=== PATIENT | male | born 1970 | race Caucasian/White ===

== ENCOUNTER 2022-10-13 00:49 | Emergency (ER) | payer SELFPAY ==
[~2022-10-13] VITALS: Ht 182.9 cm; Wt 83.9 kg
[~2022-10-13 00:49] MED LIST: AZITHROMYCIN250 MG PO; GUAIFENESIN-CO118 ML PO; NAPROXEN500 MG PO; PROVENTIL HFA6.7 GM INH
[2022-10-13] MEDS ORDERED: METFORMIN HCL500 MG PO (02:53)
[2022-10-13] MEDS ORDERED: NEURONTIN400 MG PO (02:53)
[2022-10-13] MEDS ORDERED: VENTOLIN HFA18 GM INH (05:05)
[2022-10-13] MEDS ORDERED: METRONIDAZOLE500 MG PO (05:05)
[2022-10-13] MEDS ORDERED: CIPRO500 MG PO (05:05)
== END 2022-10-13 06:10 | disposition home or self-care (01) ==
LOC: ED 00:49 → EDBD 00:51 → ED 00:51
DX: K40.90 Unilateral inguinal hernia, without obstruction or gangrene, not specified as recurrent (principal); J20.9 Acute bronchitis, unspecified; K57.32 Diverticulitis of large intestine without perforation or abscess without bleeding; Z20.822 Contact with and (suspected) exposure to COVID-19; E11.9 Type 2 diabetes mellitus without complications; Z79.84 Long term (current) use of oral hypoglycemic drugs; Z79.899 Other long term (current) drug therapy
CPT/HCPCS: 36415; 71045; 74177; 80053; 81003; 85025; 87502; 94640; 96374; 99284-25; C9803; J1885; Q9967; U0003

== ENCOUNTER 2022-10-15 12:46 | Emergency (ER) | payer OTHER ==
[~2022-10-15] VITALS: Ht 182.9 cm; Wt 83.4 kg
[~2022-10-15 12:46] MED LIST changes: +CIPRO500 MG PO; +METFORMIN HCL500 MG PO; +METRONIDAZOLE500 MG PO; +NEURONTIN400 MG PO; +VENTOLIN HFA18 GM INH
[2022-10-15] MEDS ORDERED: METFORMIN HCL1000 MG PO ×2 (13:06→16:20)
[2022-10-15] MEDS ORDERED: GABAPENTIN800 MG PO (13:06)
[2022-10-15] MEDS ORDERED: FUROSEMIDE20 MG PO (16:20)
[2022-10-15] MEDS ORDERED: AMOX TR-K CLV1 EAC1 PO (16:20)
== END 2022-10-15 16:29 | disposition home or self-care (01) ==
LOC: ED 12:46
DX: J40 Bronchitis, not specified as acute or chronic (principal); J81.0 Acute pulmonary edema; K57.92 Diverticulitis of intestine, part unspecified, without perforation or abscess without bleeding; K21.9 Gastro-esophageal reflux disease without esophagitis; I10 Essential (primary) hypertension; E11.40 Type 2 diabetes mellitus with diabetic neuropathy, unspecified; F17.200 Nicotine dependence, unspecified, uncomplicated; Z79.899 Other long term (current) drug therapy; Z79.84 Long term (current) use of oral hypoglycemic drugs
CPT/HCPCS: 36415; 71046; 80053; 83880; 84484; 85025; 94640; 94664; 99284-25

== ENCOUNTER 2022-10-30 10:29 | Inpatient (IN) | payer OTHER ==
[~2022-10-30] VITALS: Ht 182.9 cm; Wt 80.1 kg
[~2022-10-30 10:29] MED LIST changes: +AMOX TR-K CLV1 EAC1 PO; +FUROSEMIDE20 MG PO; +GABAPENTIN800 MG PO; +METFORMIN HCL1000 MG PO
--- OUTSIDE RECORDS SUMMARY | 2022-10-30 10:38 | XMS ---
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 Fly has no Care Guidelines for this patient. [place] VISIT COUNT (12 MO.) 3 [facility] TOTAL 3 NOTE: Visits indicate total known visits. ED/C VISIT TRACKING (12 MO.) 10/30/2022 10:[address] [facility] [place] TYPE: Emergency COMPLAINT: - CHEST CONGESTION, COUGH, FEVER, SWOLLEN TESTICLES 10/15/2022 12:46 [facility] [place] TYPE: Emergency COMPLAINT: - COLD SYMPTOMS DIAGNOSES: - Bronchitis, not specified as acute or chronic - Gastro-esophageal reflux disease without esophagitis - Other senior living (current) drug therapy - Acute pulmonary edema - Essential (primary) hypertension - Type 2 diabetes mellitus with diabetic neuropathy, unspecified - salvage determiner (current) use of oral hypoglycemic drugs - Cough, unspecified - Nicotine dependence, unspecified, uncomplicated - Diverticulitis of intestine, part unspecified, without perforation or abscess without bleeding 10/13/2022 00:51 [facility] [place] TYPE: Emergency COMPLAINT: - LOWER ABD PAIN DIAGNOSES: - Other senior living (current) drug therapy - Acute bronchitis, unspecified - Diverticulitis of large intestine without perforation or abscess without bleeding - Unilateral inguinal hernia, without obstruction or gangrene, not specified as recurrent - Type 2 diabetes mellitus without complications - salvage determiner (current) use of oral hypoglycemic drugs - Unspecified abdominal pain - Contact with and (suspected) exposure to COVID-19 INPATIENT VISIT TRACKING (12 MO.) No inpatient visits to display in this time frame [email or web address]
--- NOTE | 2022-10-31 12:15 | NUR ---
PT. ARRIVED FROM ER VIA STRETCHER FROM ER. REPORT RECEIVED FROM CHARGE AND 2 RN SKIN ASSESSMENT COMPLETED WITH CHARGE. PT. IS ALERT AND ORIENTED TO ALL BUT DATE. SCROTUM IS PAINFUL, RED AND EDEMETOUS. INTAKE COMPLETED AND MEDS ADMINISTERED. DISCUSSED SAFETY, POC, DX AND MEDS. LEFT RESTING WITH CALL LIGHT IN REACH.
--- NOTE | 2022-10-31 13:43 | NUR ---
PT AMBULATED TO THE RESTROOM TO HAVE A BOWEL MOVEMENT. EDUCATED PT TO PULL CALL LIGHT WHEN DONE. PT STATES UNDERSTANDING.
--- NOTE | 2022-10-31 14:13 | NUR ---
SITTING ON BED.DISCUSSED PLAN OF CARE. PATIENT PLANS TO GO HOME WTH HIS .STATES HE LIVES DIFFERENT PLACES DEPENDING ON WHERE HE DECIDES TO SLEEP FOR THE NIGHT.PATIENT GIVEN A PAIGE CARD TO HELP WITH SUBSTANCE ABUSE PROBLEMS. PCP LIST ALSO GIVEN TO PATIENT TO HELP PATIENT CHOOSE A PCP.
--- NOTE | 2022-10-31 16:20 | NUR ---
MED REC COMPLETE
--- NOTE | 2022-10-31 18:00 | NUR ---
ROUNDING ON PT. IN THE ROOM. DISCUSSED EFFECTS OF METH USE ON LIVER AND HEART. PT. AND EXPRESSED INTEREST IN C.O.P.E.S. ORDERED DINNER BOX. LEFT RESTING WITH CALL LIGHT IN REACH.
--- NOTE | 2022-10-31 20:10 | NUR ---
report from miki villar, pt and s/o in room, oriented to this nurse - white board updated - water to pt and guest - she is staying the night, offered pillow/blanket and bathroom. pt denies needs - call light in reach - oriented to plan of care for night meds/vitals.
--- NOTE | 2022-10-31 21:30 | NUR ---
PT AND S/O IN ROOM, ASSESSMENT, VITALS, I/O COMPLETE. PT BLE ELEVATED ON PILLOWS 3+ EDEMA NOTED - NEW TO PT, SCROTAL CELLULITIS OF UNKNOWN SOURCE NEW, RED, SWOLLEN- PT NOTED DR SAID HE HAD INGUINAL HERNIA WELL. PT AND GUEST ADMIT TO CHRONIC METH USE AND HOMELESSNESS. WELCOME ANY EDUCATION AND HELP. THEY HAVE CHILDREN AND GRANDCHILDREN IN TOWN. ESTABLISHED WITH PFM - BUT MISSED APPOINTMENT LAST WEEK DUE TO RESOURCES AND PRIORITY OF ADDICTION. PT AT THIS TIME IS VERY ALERT AND TALKATIVE.
--- NOTE | 2022-10-31 23:15 | NUR ---
rn in to answer pt call light. pt c/o left inguinal pain with coughing - exam shows no buldge or disfiguration showing a visible hernia, no discoloration noted. pt states he splints when he coughs - recent po pain med given - rn educated pt will bring in again when it is next due. pt agrees to keep up on the po med. anxious about all the medical things he has going on he says. rn refilled water and offered s/o refill also. pt agrees with plan and lights down so they can rest. will have iv abx at 1 am. next. pt will call with needs. light in reach.
--- NOTE | 2022-11-01 01:15 | NUR ---
rn in room to start iv vanco, pt awakens - mumbling and talking about nonsense. tells me he haves bad dreams - rn explaining iv abx via pump and fluses left arm site. pt is anxious and moving around in bed - continues to be mumbling and nonsense talk. call light in reach - asked him to call when iv pump beeps - he agrees.
--- NOTE | 2022-11-01 02:30 | NUR ---
PT CALLED FOR URINAL TO BE EMPTIED, PT REQUESTS DIET SODA, BROTH, NO FURTHER NEEDS
--- NOTE | 2022-11-01 02:31 | NUR ---
rn in with scrubbing machine operator for vitals/i/o - sl iv after iv abx was complete. pt denies needs other than refill of fluids, call light in reach.
--- NOTE | 2022-11-01 06:18 | NUR ---
ROUNDING ON PT, RN IN TO GIVE EDUCATION PACKET. PT STANDING IN ROOM AT BEDSIDE, DENIES NEEDS, THANKFUL FOR EDUCATION INFO - CALL LIGHT IN REACH.
--- NOTE | 2022-11-01 07:46 | NUR ---
recieved shift report. pt resting in bed, awake. at bedside. call light within reach.
--- NOTE | 2022-11-01 10:03 | NUR ---
MORNING ASSESSMENT COMPLETE. PT RESTING IN BED, AWAKE. SCROTAL AREA REMAINS SWOLLEN. BLE 3+ EDEMA. PT STATES PAIN IN RIGHT FOOT, 4/10, ALSO STATES IS CHRONIC, TOLERABLE. PT AMBULATES TO BATHROOM INDEPENDENTLY. DENIES FURTHER NEEDS. AT BEDSIDE. CALL LIGHT WITHIN REACH.
--- NOTE | 2022-11-01 10:17 | NUR ---
NOTIFIED DR DA SILVA REGARDING CULTURE RESULTS. NO NEW ORDERS AT THIS TIME.
--- NOTE | 2022-11-01 10:58 | NUR ---
PATIENT IN BED AFTER MEAL. SPOUSE IN ROOM. VITALS AND I/O'S COMPLETED. PATIENT HAS NO OTHER NEEDS AT THIS TIME. CALL LIGHT WITHIN REACH.
--- NOTE | 2022-11-01 13:29 | NUR ---
PT RESTING IN BED, AWAKE. PAIN IN GROIN 5/10, TOLERABLE. CALL LIGHT WITHIN REACH. AT BEDSIDE. DENIES FURTHER NEEDS.
--- NOTE | 2022-11-01 15:35 | NUR ---
AFTERNOON ASSESSMENT COMPLETE. NO NEW CHANGES FROM MORNING ASSESSMENT. RATES PAIN 7/10, REQUESTING PRN MEDICATION. CALL LIGHT WITHIN REACH.
--- NOTE | 2022-11-01 17:59 | NUR ---
NOTIFED OF PT MAG LEVEL. NO NEW ORDERS AT THIS TIME.
--- NOTE | 2022-11-01 19:00 | NUR ---
report from cj rn, pt bs high today requireing insulin, tylenol for scrotal pain and leg pain, edema ble improving, replacing mg and kcl. call light in reach.
--- NOTE | 2022-11-01 19:02 | EKG ---
[facility] [address] [facility] [place] [address] Signed Normal sinus rhythm Right atrial enlargement T wave abnormality, consider anterolateral ischemia Prolonged QT Abnormal ECG No previous ECGs available Confirmed by MARY CARMEN DA SILVA MD ([id number]) on 11/01/2022 7:01:48 PM Electronically Signed By: MARY CARMEN DA SILVA MD 11/01/221901 PATIENT NAME: KAYKAY LAWSON Electrocardiogram DATE OF : 72 PHYSICIAN: MARY CARMEN DA SILVA MD REPORT #: [id number] REPORT IS CONFIDENTIAL AND NOT TO BE RELEASED WITHOUT AUTHORIZATION
--- NOTE | 2022-11-01 22:02 | NUR ---
VS AND I&O COMPLETED. SNACKS PROVIDED. NO OTHER NEEDS AT THIS TIME. CALL LIGHT IN REACH.
--- NOTE | 2022-11-01 22:55 | NUR ---
IN ROOM FOR IV MG VIA PUMP. PT AWAKENS SLIGHTLY, MOANS AND GROANS - MUMBLES. S /O SLEEPING IN , SNORES, PT HAS LEGS WITH BLE EDEMA ELEVATED ON PILLOWS IN BED, CALL LIGHT IN REACH.
--- NOTE | 2022-11-01 23:20 | NUR ---
iv distal occlusion - pt amb in room to bathroom. requesting a salad - encouraged to call tomorrow when kitchen is open.
--- NOTE | 2022-11-01 23:43 | NUR ---
IN ROOM TO SL 2ND IV WITH ABX. SITE WNL. PT CONTINUES TO MOAN AND KORILE BUT ANSWERS QUESTIONS APPROPRIATELY.
--- NOTE | 2022-11-02 01:45 | NUR ---
pt awake sitting at side of bed, Iv sl - mg/abx finished. pt asks for food/pudding. [place]. glucerna and sf vanilla pudding provided. pt denies other needs. he is cont. to moan and make noises and movements - seems to be related to his recent meth use.
--- NOTE | 2022-11-02 04:29 | NUR ---
IN TO PT ROOM, HIS CALLED - PT IS STANDING IN ROOM WITH GOWN OFF IN UNDERPANTS CONFUSED, HALLUCINATING. HE GETS BACK IN BED AND COVERS, ADMITS TO FEELING LIKE HE IS WITHDRAWING FROM METH - BS PRN 189 WNL. PT SAYS HE FEELS LIKE HIS SKIN IS CRAWLING, SEES SHADOWS OF THINGS MOVING, ADMITS TO HALLUCINATIONS AND HEARING SOUNDS, FEELS LIKE HE IS IN THE WRONG PLACE BUT HE KNOWS WHERE HE IS. ASKS FOR SOME FENTANYL - LET HIM KNOW THAT i CAN NOT GIVE HIM MORE THEN HIS TYLENOL FOR PAIN. HE SAYS HE CAN NOT SETTLE DOWN AND SLEEP - TALKE WITH HIM AND - THEY ADMIT TO USING METH BEFORE HOSPITAL AND THEY USUALLY DON'T WITHDRAW THEY KENNY THE NEXT ONE, AND USE DRUGS AGAIN BEFORE THIS HAPPENS, BUT THAT THIS IS WHAT IS GOING ON. KYLEWA CHARTED. PT TRYING TO REST IN BED AND AGREES WITH ASSESSMENT OF WITHDRAW SYMPTOMS. CALL LIGHT IN REACH AT BEDSIDE.
--- NOTE | 2022-11-02 05:57 | NUR ---
VITALS, I/O COMPLETE - IV ABX FUSING. PT RESTLESS, MOANING, GROANING, REPORTS HE IS BURNING UP, TEMP WNL. PT CONSTANTLY MOVING. CALL LIGHT IN REACH
--- NOTE | 2022-11-02 07:30 | NUR ---
Patient in bed this am, spouse in room. Pt is INDP in room. acu check completed. Patient has no other needs at this time. Call light within reach.
--- NOTE | 2022-11-02 07:58 | NUR ---
Pt laying in bed, awake. states was not able to sleep at night, and doesnt know why. at bedside. denies further needs. call light within reach.
--- NOTE | 2022-11-02 08:50 | NUR ---
MORNING ASSESSMENT COMPLETE. ENTERING ROOM PT SITTING ON THE SIDE OF BED, PT REMOVED GOWN AND DOESNT KNOW WHY. STATES HIS SKIN IS TINGLING, AND CLAMMY. BLE +2 EDEMA. GROIN REMAINS SWOLLEN. PT COMPLAINS OF 9/10 PAIN IN THE RIGHT HAND AND FOOT. REQUESTED PRN PAIN MEDICATION. COURSE IN LEFT LOWER LOBE. CALL LIGHT WITHIN REACH. AT BEDSIDE.
--- NOTE | 2022-11-02 10:37 | NUR ---
PATIENT SITTING UP ON SIDE OF BED. SPOUSE "HE WAS WHEEZING AND HE DOESNT LOOK RIGHT". PATIENT WAS SITTING AND SWAYING HIS BODY BACK AND FORTH. PT WAS ALSO MUMBLING INCOHERENT SENTENCES. NURSE CJ NOTIFIED. VITALS AND I/O'S COMPLETED AND WERE IN PARAMETERS AND WERE CONSISTANT FOR PATIENT. PT HAS NO OTHER NEEDS AT THIS TIME. CALL LIGHT WITHIN REACH.
--- NOTE | 2022-11-02 11:47 | NUR ---
IN ROOM TO DO BS. PT SITTING ON COUCH AND PT FACING HIM. UPON ENTERING THE BACK WAS TURNED TOWARD ME AND BOTH PT AND LOOKED AT ME VERY FAST. WHEN ASKING WHAT THEY WERE UP TO PT AND STATED "OH NOTHING:. PT STARTED MUBMLING AND WAS VERY FIDGETY AND WAS ROCKING BACK AND FORTH. PT TO BED. BS TAKEN. NO FURTHER NEEDS. CALL LIGHT WITHIN REACH
--- NOTE | 2022-11-02 14:04 | NUR ---
PT REQ TOWELS. TOWELS BROUGHT TO PT. VITALS AND IS AND OS COMPLETE. ES NOTIFIED TO CLEAN BATHROOM. ICE WATER GIVEN TO PT. NO FURTHER NEEDS. CALL LIGHT WITHIN REACH
--- NOTE | 2022-11-02 14:38 | NUR ---
AFTERNOON ASSESSMENT COMPLETE. NO NEW CHANGES SINCE MORNING ASSESSMENT. DISCUSSED WITH PATIENT CHANGE OF MEDICATIONS. ALL QUESTIONS ANSWERED. PT REQUESTED PRN ANXIETY MEDICATION HOPING TO HELP GET REST. PRN HYDROXYZINE ADMINISTERED (PER EMAR). 2+ EDEMA BLE, FEET. DENIES PAIN, AND FURTHER NEEDS. CALL LIGHT WITHIN REACH.
--- NOTE | 2022-11-02 16:00 | NUR ---
PT LAYING IN BED, AWAKE. PT STATES PRN ANXIETY MEDICATION HAS WORKED. DENIES ANY FURTHER NEEDS AT THIS TIME. CALL LIGHT WITHIN REACH.
--- NOTE | 2022-11-02 19:00 | NUR ---
REPORT FROM JUNIE RN, PT SL IV, ANXIETY IMPROVED WITH PO MEDS TODAY - ASSSISTED S/O TO MAKE POPCORN, PT INCREASED APPETITIE. CALL LIGHT IN REACH.
--- NOTE | 2022-11-02 21:30 | NUR ---
pt and s/o are arguing in room, pt is standing up with his steet clothing on ready to leave - requesting to go AMA, says to s/o they are not leaving together they are parting ways right now. pt wants to leave, pleasant and honest- feels better he says and he needs to go. he agrees to let rn take out iv's intact x2 and he agreed to take po abx see emar. they are homeless so they have a lot of things packing up from room, advised that I would call dr. romero - and offered for pt to stay, he was polite and said no thank you tell him I just need to get out of here. they asked for ride to near [employer] [facility] [employer]. dr romero charge and job site supervisor notified - glynn from security helped to escort pt and s/o other out with all of there belongings. and care ride was called. pt was alert and oriented, steady on feet. dc out at 2157 pm with security.
[2022-11-03] MEDS ORDERED: DOXYCYCLINE HY100 MG PO (09:13)
[2022-11-03] MEDS ORDERED: CEFPODOXIME PR200 MG PO (09:13)
[2022-11-03] MEDS ORDERED: TORSEMIDE20 MG PO (09:14)
[2022-11-03] MEDS ORDERED: LOSARTAN POTASS25 MG PO (09:15)
[2022-11-03] MEDS ORDERED: POTASSIUM CHLO20 ME1 PO (09:15)
[2022-11-03] MEDS ORDERED: CARVEDILOL3.125 MG PO (09:15)
[2022-11-03] MEDS ORDERED: STEGLATRO5 MG PO (09:17)
--- NOTE | 2022-11-03 09:22 | NUR ---
CALLED PATIENT TO LET HIM KNOW THAT DR. DA SILVA SENT PRESCRIPTIONS TO BE VALENTE. 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
== END 2022-11-02 21:57 | disposition left against medical advice (07) | DRG 917 ==
LOC: ED 10:29 → MS 10-31 11:07
PROVIDERS: ADMIT Internal Medicine; ATTEND Internal Medicine
DX: T43.651A Poisoning by methamphetamines accidental (unintentional), initial encounter (principal); I50.23 Acute on chronic systolic (congestive) heart failure; K72.00 Acute and subacute hepatic failure without coma; J13 Pneumonia due to Streptococcus pneumoniae; F15.23 Other stimulant dependence with withdrawal; Z20.822 Contact with and (suspected) exposure to COVID-19; N49.2 Inflammatory disorders of scrotum; I11.0 Hypertensive heart disease with heart failure; B19.20 Unspecified viral hepatitis C 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 coma; K21.9 Gastro-esophageal reflux disease without esophagitis; F17.210 Nicotine dependence, cigarettes, uncomplicated; E87.6 Hypokalemia; E11.40 Type 2 diabetes mellitus with diabetic neuropathy, unspecified; Z90.49 Acquired absence of other specified parts of digestive tract; Z98.890 Other specified postprocedural states; Z79.84 Long term (current) use of oral hypoglycemic drugs; Z79.899 Other long term (current) drug therapy; X58.XXXA Exposure to other specified factors, initial encounter
CPT/HCPCS: 36415; 71045; 74177; 76705; 76870; 80048; 80053; 80074; 80202; 81001; 82140; 83036; 83605; 83735; 83880; 84484; 85025; 85610; 87040; 87077; 87186; 87502; 87517; 87522; 93005; 93010; 93306; A9270; G0480; J0696; J1120; J1815; J1940; J2270; J2543; J3370; J3430; J3475; J7060; Q0177; Q9967; U0003

== ENCOUNTER 2023-01-04 05:40 | Emergency (ER) | payer OTHER ==
[~2023-01-04] VITALS: Ht 182.9 cm; Wt 82.0 kg
[~2023-01-04 05:40] MED LIST changes: +CARVEDILOL3.125 MG PO; +CEFPODOXIME PR200 MG PO; +DOXYCYCLINE HY100 MG PO; +LOSARTAN POTASS25 MG PO; +POTASSIUM CHLO20 ME1 PO; +STEGLATRO5 MG PO; +TORSEMIDE20 MG PO
--- OUTSIDE RECORDS SUMMARY | 2023-01-04 05:44 | XMS ---
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 [place] VISIT COUNT (12 MO.) 2 [facility] [address] TOTAL 9 NOTE: Visits indicate total known visits. ED/UCC VISIT TRACKING (12 MO.) 01/04/2023 05:40 [facility] TYPE: Emergency COMPLAINT: - CP 12[facility]19[facility]22 13:[facility] DIAGNOSES: - chest pain and sob/ccoughing up blood - Heart failure, unspecified - Other pulmonary embolism without acute cor pulmonale - Chest Pain - Non-ST elevation (NSTEMI) myocardial infarction - Pneumonia, unspecified organism - Cough 11/14/2022 11:35 [facility] DIAGNOSES: - Shortness of Breath - Difficulty Breathing - Difficulty Breathing; Poss Hernia - Unspecified systolic (congestive) heart failure 11/13/2022 12:34 [facility] [place] TYPE: Emergency COMPLAINT: - CHEST PAIN DIAGNOSES: - skilled nursing (current) use of oral hypoglycemic drugs - Other terminologist (current) drug therapy - Chest pain, unspecified - Hepatic failure, unspecified without coma - Weakness - Nicotine dependence, unspecified, uncomplicated - Essential (primary) hypertension - Gastro-esophageal reflux disease without esophagitis - Type 2 diabetes mellitus with diabetic neuropathy, unspecified 10/30/2022 10:31 [facility] [place] TYPE: Emergency COMPLAINT: - CHEST CONGESTION, COUGH, FEVER, SWOLLEN TESTICLES 10/15/2022 12:46 [facility] [place] TYPE: Emergency COMPLAINT: - COLD SYMPTOMS DIAGNOSES: - Type 2 diabetes mellitus with diabetic neuropathy, unspecified - skilled nursing (current) use of oral hypoglycemic drugs - Cough, unspecified - Nicotine dependence, unspecified, uncomplicated - Diverticulitis of intestine, part unspecified, without perforation or abscess without bleeding - Bronchitis, not specified as acute or chronic - Gastro-esophageal reflux disease without esophagitis - Other terminologist (current) drug therapy - Acute pulmonary edema - Essential (primary) hypertension 10/13/2022 00:51 [facility] [place] TYPE: Emergency COMPLAINT: - LOWER ABD PAIN DIAGNOSES: - Type 2 diabetes mellitus without complications - terminal makeup operator (current) use of oral hypoglycemic drugs - Unspecified abdominal pain - Contact with and (suspected) exposure to COVID-19 - Other intermediate (current) drug therapy - Acute bronchitis, unspecified - Diverticulitis of large intestine without perforation or abscess without bleeding - Unilateral inguinal hernia, without obstruction or gangrene, not specified as recurrent 08/06/2022 13:39 [employer] [facility] TYPE: Emergency DIAGNOSES: - Lesion of radial nerve, left upper limb - Encounter for issue of repeat prescription - Type 2 diabetes mellitus without complications 07/28/2022 13:23 [employer] [facility] TYPE: Emergency DIAGNOSES: - Acute kidney failure, unspecified - Hyperlipidemia, unspecified - Cocaine abuse, uncomplicated - Dehydration - Other stimulant abuse, uncomplicated - Procedure and treatment not carried out because of patient's decision for unspecified reasons - Type 2 diabetes mellitus without complications - Adverse effect of other antiepileptic and sedative-hypnotic drugs, initial encounter INPATIENT VISIT TRACKING (12 MO.) 12/19/2022 13:29 [facility] TYPE: Intensive Care DIAGNOSES: - Non-ST elevation (NSTEMI) myocardial infarction - Other pulmonary embolism without acute cor pulmonale - Pneumonia, unspecified organism - Unspecified systolic (congestive) heart failure - Other stimulant abuse, uncomplicated - Heart failure, unspecified - Bacteremia - Hemoptysis - Type 2 diabetes mellitus with hyperglycemia - Acute on chronic systolic (congestive) heart failure 10/31/2022 11:07 [facility] TYPE: Medical Surgical COMPLAINT: - HEPITITIS,SCROTAL CELLULITIS,HEART FAIL,L LUNG PN DIAGNOSES: - Hypokalemia - Unspecified viral hepatitis C 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 coma - Unspecified viral hepatitis C 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 coma - Gastro-esophageal reflux disease without esophagitis - Poisoning by methamphetamines accidental (unintentional), initial encounter - Acute on chronic systolic (congestive) heart failure - Other stimulant dependence with withdrawal - Other specified postprocedural states - Hypertensive heart disease with heart failure - Contact with and (suspected) exposure to COVID-19 - Type 2 diabetes mellitus with diabetic neuropathy, unspecified - Nicotine dependence, cigarettes, uncomplicated - Acute and subacute hepatic failure without coma - skilled nursing (current) use of oral hypoglycemic drugs - Inflammatory disorders of scrotum - Hypokalemia - Pneumonia due to Streptococcus pneumoniae - Acquired absence of other specified parts of digestive tract - terminal makeup operator (current) use of oral hypoglycemic drugs - Other stimulant dependence with withdrawal - Other intermediate (current) drug therapy - Other specified postprocedural states - Poisoning by methamphetamines accidental (unintentional), initial encounter - Hypertensive heart disease with heart failure - Acute on chronic systolic (congestive) heart failure - Pneumonia due to Streptococcus pneumoniae - Nicotine dependence, cigarettes, uncomplicated - Other terminologist (current) drug therapy - Contact with and (suspected) exposure to COVID-19 - Type 2 diabetes mellitus with diabetic neuropathy, unspecified - Inflammatory disorders of scrotum - Acquired absence of other specified parts of digestive tract - Exposure to other specified factors, initial encounter - Exposure to other specified factors, initial encounter - Gastro-esophageal reflux disease without esophagitis [email or web address]
--- NOTE | 2023-01-04 11:33 | NUR ---
I WAS CALLED IN TO ER. MS WAS CODING. PROVIDED SPIRITUAL CARE TO THROUGHOUT ER STAY. PT WAS LIFELIGHTED. CLOTHING AND WALLET TRANSPORTED WITH PT AT 'S REQUEST.
--- NOTE | 2023-01-04 22:06 | EKG ---
[facility] [address] [facility] [place] [address] Signed Sinus tachycardia with frequent premature ventricular complexes ST \T\ T wave abnormality, consider anterolateral ischemia Abnormal ECG When compared with ECG of 13-NOV-2022 12:36, ST no longer depressed in Anterior leads T wave inversion less evident in Anterior leads Inverted T waves have replaced nonspecific T wave abnormality in Lateral leads Confirmed by Dada Ayala MD () on 01/04/2023 10:06:29 PM Electronically Signed By: DADA AYALA MD 01/04/232205 PATIENT NAME: KAYKAY LAWSON Electrocardiogram DATE OF : 72 PHYSICIAN: DADA AYALA MD REPORT #: [id number] REPORT IS CONFIDENTIAL AND NOT TO BE RELEASED WITHOUT AUTHORIZATION
--- NOTE | 2023-01-04 22:08 | EKG ---
[facility] [address] [facility] [place], [place] [address] Signed Sinus tachycardia Left atrial enlargement Septal infarct , age undetermined ST \T\ T wave abnormality, consider anterior ischemia Abnormal ECG No previous ECGs available Confirmed by Dada Ayala MD () on 01/04/2023 10:07:53 PM Electronically Signed By: DADA AYALA MD 01/04/232207 PATIENT NAME: KAYKAY LAWSON Electrocardiogram DATE OF : 72 PHYSICIAN: DADA AYALA MD REPORT #: [id number] REPORT IS CONFIDENTIAL AND NOT TO BE RELEASED WITHOUT AUTHORIZATION
== END 2023-01-04 11:10 | disposition short-term general hospital (02) ==
LOC: ED 05:40
DX: I11.0 Hypertensive heart disease with heart failure (principal); I50.9 Heart failure, unspecified; F15.129 Other stimulant abuse with intoxication, unspecified; J18.9 Pneumonia, unspecified organism; I46.9 Cardiac arrest, cause unspecified; Z20.822 Contact with and (suspected) exposure to COVID-19; B19.20 Unspecified viral hepatitis C 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 coma; E11.40 Type 2 diabetes mellitus with diabetic neuropathy, unspecified; K21.9 Gastro-esophageal reflux disease without esophagitis; F17.200 Nicotine dependence, unspecified, uncomplicated; Z79.899 Other long term (current) drug therapy; Z79.85 Long-term (current) use of injectable non-insulin antidiabetic drugs
CPT/HCPCS: 31500; 36415; 36600; 51702; 71045; 80053; 81001; 82803; 83605; 83690; 83880; 84484; 85025; 87088; 87502; 93005; 93010; 94002; 99291; 99292; C9803; J0330; J0456; J0696; J1940; J2060; J2405; J7040; J7050; J7060; J7121; U0003

== ENCOUNTER 2023-03-18 04:52 | Emergency (ER) | payer OTHER ==
[~2023-03-18] VITALS: Ht 182.9 cm; Wt 72.9 kg
[~2023-03-18 04:52] MED LIST changes: +ABILIFY5 MG PO; +BUPRENORPHIN-N1 EACH SL; +BUPRENORPHINE-1 EACH SL; +ELIQUIS5 MG PO
--- OUTSIDE RECORDS SUMMARY | 2023-03-18 04:55 | XMS ---
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 E.Colt. VISIT COUNT (12 MO.) 2 [facility] 1 [facility] 2 Located Within [facility] 7 VANNA Ennis Meme TOTAL 12 NOTE: Visits indicate total known visits. ED/UCC VISIT TRACKING (12 MO.) 03/18/2023 04:53 [facility] [place] TYPE: Emergency COMPLAINT: - RT HIP PAIN 03/10/2023 07:06 [facility] [place] TYPE: Emergency COMPLAINT: - BODY ACHES DIAGNOSES: - Contact with and (suspected) exposure to COVID-19 - Encephalopathy, unspecified - Heart failure, unspecified - Homelessness unspecified - Hypertensive heart disease with heart failure - Inflammatory liver disease, unspecified - terminal press operator (current) use of anticoagulants - terminal press operator (current) use of oral hypoglycemic drugs - Nicotine dependence, unspecified, uncomplicated - Other intermediate (current) drug therapy - Other psychoactive substance abuse, uncomplicated - Type 2 diabetes mellitus without complications - Unspecified abdominal pain 01/13/2023 14:59 [facility] TYPE: Emergency DIAGNOSES: - Acute on chronic systolic (congestive) heart failure - Intracardiac thrombosis, not elsewhere classified - Other pulmonary embolism without acute cor pulmonale - Shortness of breath - Medical Problem (Minor) - Shortness of Breath 01/04/2023 05:40 [facility]NA Sosa TYPE: Emergency COMPLAINT: - CP DIAGNOSES: - Cardiac arrest, cause unspecified - Chest pain, unspecified - Contact with and (suspected) exposure to COVID- - Gastro-esophageal reflux disease without esophagitis - Heart failure, unspecified - Hypertensive heart disease with heart failure - Long-term (current) use of injectable non-insulin antidiabetic drugs - Nicotine dependence, unspecified, uncomplicated - Other intermediate (current) drug therapy - Other stimulant abuse with intoxication, unspecified - Pneumonia, unspecified organism - Type 2 diabetes mellitus with diabetic neuropathy, unspecified - Unspecified viral hepatitis C 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 coma [facility]19[facility]22 13:[facility] DIAGNOSES: - Heart failure, unspecified - Non-ST elevation (NSTEMI) myocardial infarction - Other pulmonary embolism without acute cor pulmonale - Pneumonia, unspecified organism - Chest Pain - chest pain and sob/ccoughing up blood - Cough 11/14/2022 11:35 [facility] TYPE: Emergency DIAGNOSES: - Unspecified systolic (congestive) heart failure - Difficulty Breathing - Difficulty Breathing; Poss Hernia - Shortness of Breath 11/13/2022 12:34 [facility]ANNA Sosa TYPE: Emergency COMPLAINT: - CHEST PAIN DIAGNOSES: - Chest pain, unspecified - Essential (primary) hypertension - Gastro-esophageal reflux disease without esophagitis - Hepatic failure, unspecified without coma - terminal press operator (current) use of oral hypoglycemic drugs - Nicotine dependence, unspecified, uncomplicated - Other terminal press operator (current) drug therapy - Type 2 diabetes mellitus with diabetic neuropathy, unspecified - Weakness 10/30/2022 10:31 [facility] [place] TYPE: Emergency COMPLAINT: - CHEST CONGESTION, COUGH, FEVER, SWOLLEN TESTICLES 10/15/2022 12:46 [facility] [place] TYPE: Emergency COMPLAINT: - COLD SYMPTOMS DIAGNOSES: - Acute pulmonary edema - Bronchitis, not specified as acute or chronic - Cough, unspecified - Diverticulitis of intestine, part unspecified, without perforation or abscess without bleeding - Essential (primary) hypertension - Gastro-esophageal reflux disease without esophagitis - alf (current) use of oral hypoglycemic drugs - Nicotine dependence, unspecified, uncomplicated - Other terminal press operator (current) drug therapy - Type 2 diabetes mellitus with diabetic neuropathy, unspecified 10/13/2022 00:51 [facility] [place] TYPE: Emergency COMPLAINT: - LOWER ABD PAIN DIAGNOSES: - Acute bronchitis, unspecified - Contact with and (suspected) exposure to COVID-19 - Diverticulitis of large intestine without perforation or abscess without bleeding - alf (current) use of oral hypoglycemic drugs - Other terminal press operator (current) drug therapy - Type 2 diabetes mellitus without complications - Unilateral inguinal hernia, without obstruction or gangrene, not specified as recurrent - Unspecified abdominal pain 08/06/2022 13:39 [facility] TYPE: Emergency DIAGNOSES: - Encounter for issue of repeat prescription - Lesion of radial nerve, left upper limb - Type 2 diabetes mellitus without complications 07/28/2022 13:23 [facility] TYPE: Emergency DIAGNOSES: - Acute kidney failure, unspecified - Adverse effect of other antiepileptic and sedative-hypnotic drugs, initial encounter - Cocaine abuse, uncomplicated - Dehydration - Hyperlipidemia, unspecified - Other stimulant abuse, uncomplicated - Procedure and treatment not carried out because of patient's decision for unspecified reasons - Type 2 diabetes mellitus without complications INPATIENT VISIT TRACKING (12 MO.) 03/10/2023 19:52 [facility] TYPE: [facility] DIAGNOSES: [id number]. Acute and subacute hepatic failure without coma 28215. acute hepatitis with encephalopathy, request for liver transplant eval [id number]. Acute and subacute hepatic failure without coma 45347. Housing instability, housed unspecified 10267. terminal press operator (current) use of insulin 40617. Type 2 diabetes mellitus without complications 01/04/2023 11:36 [facility] TYPE: Internal Medicine DIAGNOSES: - Acute on chronic systolic (congestive) heart failure - Cardiac arrest, cause unspecified - Encounter for palliative care - Intracardiac thrombosis, not elsewhere classified - Other malaise - Other specified counseling - Other stimulant abuse, uncomplicated - PEA cardiac arrest [facility]19[facility]22 [facility] DIAGNOSES: - Acute on chronic systolic (congestive) heart failure - Bacteremia - Heart failure, unspecified - Hemoptysis - Non-ST elevation (NSTEMI) myocardial infarction - Other pulmonary embolism without acute cor pulmonale - Other stimulant abuse, uncomplicated - Pneumonia, unspecified organism - Type 2 diabetes mellitus with hyperglycemia - Unspecified systolic (congestive) heart failure 10/31/2022 11:07 [facility] [place] TYPE: Medical Surgical COMPLAINT: - HEPITITIS,SCROTAL CELLULITIS,HEART FAIL,L LUNG PN DIAGNOSES: - Acquired absence of other specified parts of digestive tract - Acquired absence of other specified parts of digestive tract - Acute and subacute hepatic failure without coma - Acute on chronic systolic (congestive) heart failure - Acute on chronic systolic (congestive) heart failure - Contact with and (suspected) exposure to COVID-19 - Contact with and (suspected) exposure to COVID-19 - Exposure to other specified factors, initial encounter - Exposure to other specified factors, initial encounter - Gastro-esophageal reflux disease without esophagitis - Gastro-esophageal reflux disease without esophagitis - Hypertensive heart disease with heart failure - Hypertensive heart disease with heart failure - Hypokalemia - Hypokalemia - Inflammatory disorders of scrotum - Inflammatory disorders of scrotum - terminal press operator (current) use of oral hypoglycemic drugs - terminal press operator (current) use of oral hypoglycemic drugs - Nicotine dependence, cigarettes, uncomplicated - Nicotine dependence, cigarettes, uncomplicated - Other intermediate (current) drug therapy - Other intermediate (current) drug therapy - Other specified postprocedural states - Other specified postprocedural states - Other stimulant dependence with withdrawal - Other stimulant dependence with withdrawal - Pneumonia due to Streptococcus pneumoniae - Pneumonia due to Streptococcus pneumoniae - Poisoning by methamphetamines accidental (unintentional), initial encounter - Poisoning by methamphetamines accidental (unintentional), initial encounter - Type 2 diabetes mellitus with diabetic neuropathy, unspecified - Type 2 diabetes mellitus with diabetic neuropathy, unspecified - Unspecified viral hepatitis C 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 coma - Unspecified viral hepatitis C 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 coma [email or web address]
[2023-03-18 05:42] VITALS: BP 131/84
== END 2023-03-18 05:43 | disposition home or self-care (01) ==
LOC: ED 04:52
DX: M25.551 Pain in right hip (principal); G89.29 Other chronic pain; E46 Unspecified protein-calorie malnutrition; Z59.00 Homelessness unspecified; E11.40 Type 2 diabetes mellitus with diabetic neuropathy, unspecified; I11.0 Hypertensive heart disease with heart failure; I50.9 Heart failure, unspecified; F17.200 Nicotine dependence, unspecified, uncomplicated; B19.20 Unspecified viral hepatitis C 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 coma; F10.10 Alcohol abuse, uncomplicated; F15.10 Other stimulant abuse, uncomplicated; Z79.899 Other long term (current) drug therapy; Z79.84 Long term (current) use of oral hypoglycemic drugs; Z79.01 Long term (current) use of anticoagulants
CPT/HCPCS: 99283

== ENCOUNTER 2023-03-22 08:16 | Emergency (ER) | payer OTHER ==
[~2023-03-22] VITALS: Ht 182.9 cm; Wt 72.9 kg
--- OUTSIDE RECORDS SUMMARY | 2023-03-22 08:19 | XMS ---
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 Jorge.Mando VISIT COUNT (12 MO.) 2 [facility] 1 [facility] 2 [facility] 8 [facility] TOTAL 13 NOTE: Visits indicate total known visits. ED/UCC VISIT TRACKING (12 MO.) 03/22/2023 08:17 [facility] [place] TYPE: Emergency COMPLAINT: - SOB,COUGH 03/18/2023 04:53 [facility] [place] TYPE: Emergency COMPLAINT: - RT HIP PAIN 03/10/2023 07:06 [facility] [place] TYPE: Emergency COMPLAINT: - BODY ACHES DIAGNOSES: - Contact with and (suspected) exposure to COVID-19 - Encephalopathy, unspecified - Heart failure, unspecified - Homelessness unspecified - Hypertensive heart disease with heart failure - Inflammatory liver disease, unspecified - penitentiary (current) use of anticoagulants - penitentiary (current) use of oral hypoglycemic drugs - Nicotine dependence, unspecified, uncomplicated - Other watermaster (current) drug therapy - Other psychoactive substance abuse, uncomplicated - Type 2 diabetes mellitus without complications - Unspecified abdominal pain 01/13/2023 14:59 [facility] TYPE: Emergency DIAGNOSES: - Acute [...] - Nicotine dependence, unspecified, uncomplicated - Other watermaster (current) drug therapy - Other stimulant abuse with intoxication, unspecified - Pneumonia, unspecified organism - Type 2 diabetes mellitus with diabetic neuropathy, unspecified - Unspecified viral hepatitis C 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 coma 12/19/2022 13:29 [facility] TYPE: Emergency DIAGNOSES: - Heart failure, unspecified - Non-ST elevation (NSTEMI) myocardial infarction - Other pulmonary embolism without acute cor pulmonale - Pneumonia, unspecified organism - Chest Pain - chest pain and sob/ccoughing up blood - Cough 11/14/2022 11:35 [facility] TYPE: Emergency DIAGNOSES: - Unspecified systolic (congestive) heart failure - Difficulty Breathing - Difficulty Breathing; Poss Hernia - Shortness of Breath 11/13/2022 12:34 [facility]ANNA Sosa TYPE: Emergency COMPLAINT: - CHEST PAIN DIAGNOSES: - Chest pain, unspecified - Essential (primary) hypertension - Gastro-esophageal reflux disease without esophagitis - Hepatic failure, unspecified without coma - penitentiary (current) use of oral hypoglycemic drugs - Nicotine dependence, unspecified, uncomplicated - Other watermaster (current) drug therapy - Type 2 diabetes [...] - Gastro-esophageal reflux disease without esophagitis - penitentiary (current) use of oral hypoglycemic drugs - Nicotine dependence, unspecified, uncomplicated - Other watermaster (current) drug therapy - Type 2 diabetes mellitus with diabetic neuropathy, unspecified 10/13/2022 00:51 [facility] Brocolette [facility] [place] TYPE: Emergency COMPLAINT: - LOWER ABD PAIN DIAGNOSES: - Acute bronchitis, unspecified - Contact with and (suspected) exposure to COVID-19 - Diverticulitis of large intestine without perforation or abscess without bleeding - penitentiary (current) use of oral hypoglycemic drugs - Other watermaster (current) drug therapy - Type 2 diabetes mellitus without complications - Unilateral inguinal hernia, without obstruction or gangrene, not specified as recurrent - Unspecified abdominal pain 08/06/2022 13:39 [facility] TYPE: Emergency DIAGNOSES: - Encounter for issue of repeat prescription - Lesion of radial nerve, left upper limb - Type 2 diabetes mellitus without complications 07/28/2022 13:23 [facility] DIAGNOSES: - Acute kidney failure, unspecified - Adverse effect of other antiepileptic and sedative-hypnotic drugs, initial encounter - Cocaine abuse, uncomplicated - Dehydration - Hyperlipidemia, unspecified - Other stimulant abuse, uncomplicated - Procedure and treatment not carried out because of patient's decision for unspecified reasons - Type 2 diabetes mellitus without complications INPATIENT VISIT TRACKING (12 MO.) 03/10/2023 19:52 [facility] TYPE: [facility] Practice DIAGNOSES: [id number]. Acute and subacute hepatic failure without coma 56571. acute hepatitis with encephalopathy, request for liver transplant eval [id number]. Acute and subacute hepatic failure without coma 33963. Housing instability, housed unspecified . terminal manager (current) use of insulin 84062. Type 2 diabetes mellitus without complications 01/04/2023 11:36 [facility] TYPE: Internal Medicine DIAGNOSES: - Acute on chronic systolic (congestive) heart failure - Cardiac arrest, cause unspecified - Encounter for palliative care - Intracardiac thrombosis, not elsewhere classified - Other malaise - Other specified counseling - Other stimulant abuse, uncomplicated - PEA cardiac arrest 12/19/2022 13:29 [facility] TYPE: Intensive Care DIAGNOSES: - Acute [...] - Inflammatory disorders of scrotum - terminal manager (current) use of oral hypoglycemic drugs - penitentiary (current) use of oral hypoglycemic drugs - Nicotine dependence, cigarettes, uncomplicated - Nicotine dependence, cigarettes, uncomplicated - Other fci (current) drug therapy - Other fci (current) drug therapy - Other specified postprocedural [...] Unspecified viral hepatitis C 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 coma [email or web address]
[2023-03-22 10:08] VITALS: BP 121/73
== END 2023-03-22 10:08 | disposition home or self-care (01) ==
LOC: ED 08:16
DX: R05.9 Cough, unspecified (principal); I11.0 Hypertensive heart disease with heart failure; I50.9 Heart failure, unspecified; E11.9 Type 2 diabetes mellitus without complications; F17.200 Nicotine dependence, unspecified, uncomplicated; Z79.899 Other long term (current) drug therapy; Z79.01 Long term (current) use of anticoagulants; Z20.822 Contact with and (suspected) exposure to COVID-19
CPT/HCPCS: 71045; 87502; 99283-25; U0003

== ENCOUNTER → 2023-04-14 | Emergency (ER) | payer OTHER ==
[~2023-04-14] VITALS: Ht 182.9 cm; Wt 72.9 kg
--- NOTE | ~2023-04-14 | EKG ---
[facility] [address] [facility] [place], [place] [address] Draft EK completed, results pending confirmation PATIENT NAME: RENNYKAYKAY Electrocardiogram DATE OF : 72 PHYSICIAN: PRELIMINARY REPORT #: [id number] REPORT IS CONFIDENTIAL AND NOT TO BE RELEASED WITHOUT AUTHORIZATION
--- NOTE | ~2023-04-14 | EKG ---
[facility] [address] [facility] [place], [place] [address] Draft EK completed, results pending confirmation PATIENT NAME: RENNYKAYKYA Electrocardiogram DATE OF : 72 PHYSICIAN: PRELIMINARY REPORT #: [id number] REPORT IS CONFIDENTIAL AND NOT TO BE RELEASED WITHOUT AUTHORIZATION
--- OUTSIDE RECORDS SUMMARY | 2023-04-14 00:10 | XMS ---
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 Lenore VISIT COUNT (12 MO.) 1 [employer] 2 [employer] - [facility] [place] [facility] [place] 1 [facility] 2 [facility] 9 [facility] TOTAL 15 NOTE: Visits indicate total known visits. ED/UCC VISIT TRACKING (12 MO.) 04/14/2023 00:07 [facility] [place] TYPE: Emergency COMPLAINT: - CHEST PAIN 03/28/2023 05:37 [facility] [place] TYPE: Emergency COMPLAINT: - CHEST PAIN, SHORTNESS OF BREATH DIAGNOSES: - CHEST PAIN, SHORTNESS OF BREATH 03/22/2023 08:17 [facility] [place] TYPE: Emergency COMPLAINT: - SOB,COUGH DIAGNOSES: - Contact with and (suspected) exposure to COVID-19 - Cough, unspecified - Heart failure, unspecified - Hypertensive heart disease with heart failure - residential (current) use of anticoagulants - Nicotine dependence, unspecified, uncomplicated - Other director long term care (current) drug therapy - Type 2 diabetes mellitus without complications 03/18/2023 04:53 [facility] [place] TYPE: Emergency COMPLAINT: - RT HIP PAIN DIAGNOSES: - Alcohol abuse, uncomplicated - Heart failure, unspecified - Homelessness unspecified - Hypertensive heart disease with heart failure - residential (current) use of anticoagulants - emt intermediate (current) use of oral hypoglycemic drugs - Nicotine dependence, unspecified, uncomplicated - Other chronic pain - Other intermediate (current) drug therapy - Other stimulant abuse, uncomplicated - Pain in right hip - Type 2 diabetes mellitus with diabetic neuropathy, unspecified - Unspecified protein-calorie malnutrition - Unspecified viral hepatitis C 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 coma 03/10/2023 07:06 [facility] [place] TYPE: Emergency COMPLAINT: - BODY ACHES DIAGNOSES: - Contact with and (suspected) exposure to COVID-19 - Encephalopathy, unspecified - Heart failure, unspecified - Homelessness unspecified - Hypertensive heart disease with heart failure - Inflammatory liver disease, unspecified - emt intermediate (current) use of anticoagulants - residential (current) use of oral hypoglycemic drugs - Nicotine dependence, unspecified, uncomplicated - Other intermediate (current) drug therapy - Other psychoactive substance abuse, uncomplicated - Type 2 diabetes mellitus without complications - Unspecified abdominal pain 01/13/2023 14:59 [facility] TYPE: Emergency DIAGNOSES: - Acute [...] with and (suspected) exposure to COVID-19 - Gastro-esophageal reflux disease without esophagitis - Heart failure, unspecified - Hypertensive heart disease with heart failure - Long-term (current) use of injectable non-insulin antidiabetic drugs - Nicotine dependence, unspecified, uncomplicated - Other director long term care (current) drug therapy - Other stimulant abuse with intoxication, unspecified - Pneumonia, unspecified organism - Type 2 diabetes mellitus with diabetic neuropathy, unspecified - Unspecified viral hepatitis C 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 coma 12/19/2022 13:29 [facility] DIAGNOSES: - Heart failure, unspecified - Non-ST elevation (NSTEMI) myocardial infarction - Other pulmonary embolism without acute cor pulmonale - Pneumonia, unspecified organism - Chest Pain - chest pain and sob/ccoughing up blood - Cough 11/14/2022 11:35 [facility] TYPE: Emergency DIAGNOSES: - Unspecified systolic (congestive) heart failure - Difficulty Breathing - Difficulty Breathing; Poss Hernia - Shortness of Breath 11/13/2022 12:34 [facility]ANNA Sosa TYPE: Emergency COMPLAINT: - CHEST PAIN DIAGNOSES: - Chest pain, unspecified - Essential (primary) hypertension - Gastro-esophageal reflux disease without esophagitis - Hepatic failure, unspecified without coma - emt intermediate (current) use of oral hypoglycemic drugs - Nicotine dependence, unspecified, uncomplicated - Other intermediate (current) drug therapy - Type 2 diabetes mellitus with diabetic neuropathy, unspecified - Weakness 10/30/2022 10:31 [facility] Sosa TYPE: Emergency COMPLAINT: - CHEST CONGESTION, COUGH, FEVER, SWOLLEN TESTICLES 10/15/2022 12:46 [facility] [place] TYPE: Emergency COMPLAINT: - COLD SYMPTOMS DIAGNOSES: - Acute pulmonary edema - Bronchitis, not specified as acute or chronic - Cough, unspecified - Diverticulitis of intestine, part unspecified, without perforation or abscess without bleeding - Essential (primary) hypertension - Gastro-esophageal reflux disease without esophagitis - emt intermediate (current) use of oral hypoglycemic drugs - Nicotine dependence, unspecified, uncomplicated - Other director long term care (current) drug therapy - Type 2 diabetes mellitus with diabetic neuropathy, unspecified 10/13/2022 00:51 [facility] [place] TYPE: Emergency COMPLAINT: - LOWER ABD PAIN DIAGNOSES: - Acute bronchitis, unspecified - Contact with and (suspected) exposure to COVID-19 - Diverticulitis of large intestine without perforation or abscess without bleeding - emt intermediate (current) use of oral hypoglycemic drugs - Other intermediate (current) drug therapy - Type 2 diabetes mellitus without complications - Unilateral inguinal hernia, without obstruction or gangrene, not specified as recurrent - Unspecified abdominal pain 08/06/2022 13:39 [facility] TYPE: Emergency DIAGNOSES: - Encounter for issue of repeat prescription - Lesion of radial nerve, left upper limb - Type 2 diabetes mellitus without complications 07/28/2022 13:23 [facility] TYPE: Emergency DIAGNOSES: - Acute kidney failure, unspecified - Adverse effect of other antiepileptic and sedative-hypnotic drugs, initial encounter - Cocaine abuse, uncomplicated - Dehydration - Hyperlipidemia, unspecified - Other stimulant abuse, uncomplicated - Procedure and treatment not carried out because of patient's decision for unspecified reasons - Type 2 diabetes mellitus without complications INPATIENT VISIT TRACKING (12 MO.) 03/28/2023 05:37 [facility] [place] TYPE: Medical Surgical DIAGNOSES: - Heart failure, unspecified 03/10/2023 19:52 [facility] [place] TYPE: [facility] DIAGNOSES: [id number]. Acute and subacute hepatic failure without coma 11132. acute hepatitis with encephalopathy, request for liver transplant eval . Acute and subacute hepatic failure without coma . Housing instability, housed unspecified 19362. emt intermediate (current) use of insulin 95433. Type 2 diabetes mellitus without complications 01/04/2023 11:36 [facility] TYPE: Internal Medicine DIAGNOSES: - Acute on chronic systolic (congestive) heart failure - Cardiac arrest, cause unspecified - Encounter for palliative care - Intracardiac thrombosis, not elsewhere classified - Other malaise - Other specified counseling - Other stimulant abuse, uncomplicated - PEA cardiac arrest 12/19/2022 13:29 [facility] DIAGNOSES: - Acute on [...] scrotum - Inflammatory disorders of scrotum - emt intermediate (current) use of oral hypoglycemic drugs - emt intermediate (current) use of oral hypoglycemic drugs - Nicotine dependence, cigarettes, uncomplicated - Nicotine dependence, cigarettes, uncomplicated - Other director long term care (current) drug therapy - Other director long term care (current) drug therapy - Other specified postprocedural [...] Unspecified viral hepatitis C 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 coma [email or web address]
[2023-04-14 03:05] VITALS: BP 124/82
== END ==
LOC: ED 00:07
DX: R07.9 Chest pain, unspecified (principal); I11.0 Hypertensive heart disease with heart failure; I50.9 Heart failure, unspecified; E11.22 Type 2 diabetes mellitus with diabetic chronic kidney disease; F15.10 Other stimulant abuse, uncomplicated; F17.200 Nicotine dependence, unspecified, uncomplicated; Z79.01 Long term (current) use of anticoagulants; Z79.899 Other long term (current) drug therapy
CPT/HCPCS: 36415; 71045; 80053; 83880; 84484; 85025; 93005; 93010; A9270; J7121

== ENCOUNTER 2023-09-18 10:41 | Emergency (ER) | payer OTHER ==
[~2023-09-18] VITALS: Ht 182.9 cm; Wt 72.6 kg
--- OUTSIDE RECORDS SUMMARY | ~2023-09-18 | XMS | Continuity of Care Document ---
Demographics + + + | Address | [address] | | | [place] [address] | + + + | Preferred Language | Unknown | + + + | Marital Status | Unknown | + + + | Taoist Affiliation | Unknown | + + + | Race | White | + + + | Ethnic Group | Unknown | + + + Author + + + | Author | [facility] | + + + | Organization | [facility] | + + + | Address | [address] | | | [place] [address] | + + + | Phone | | + + + Care Team Providers + + + + | Care Geometry Tutor Name | Role | Phone | + [...] + + | 2023-07-17 21:25:25 | Other nursing home (current) | [facility] | | | drug therapy | | + + + + Procedures No information. Results/Labs No information. Social History +--------+ + + | date | description | facility | +--------+ + + Vital Signs No information."
--- OUTSIDE RECORDS SUMMARY | 2023-09-18 10:44 | XMS ---
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 - 3 Facilities in 90 Days CARE PROVIDERS -, Zi- Dentist: Pharmaceutical Compounding Supervisor [facility] PHONE: [phone] Fly has no Care Guidelines for this patient. [place] VISIT COUNT (12 MO.) [address] [facility] [address] [facility] 2 [facility] ([place] Avila) 1 [facility] [address] [facility] TOTAL 17 NOTE: Visits indicate total known visits. ED/UCC VISIT TRACKING (12 MO.) 09/18/2023 10:42 [facility] [place] TYPE: Emergency COMPLAINT: - SOB, INCONTINENCE, PANIC ATTACKS 07/24/2023 12:37 [facility] [place] TYPE: Emergency COMPLAINT: - GENERAL DIAGNOSES: - GENERAL 07/23/2023 15:59 [facility] [place] TYPE: Emergency COMPLAINT: - TROUBLE BREATHING TROUBLE WALKING DIAGNOSES: - TROUBLE BREATHING TROUBLE WALKING 07/14/2023 15:46 [facility] TYPE: Emergency COMPLAINT: - MEDICAL CLEARANCE DIAGNOSES: - Encounter for general adult medical examination without abnormal findings - MEDICAL CLEARANCE 04/14/2023 00:07 [facility] [place] TYPE: Emergency COMPLAINT: - CHEST PAIN DIAGNOSES: - Chest pain, unspecified - Heart failure, unspecified - Hypertensive heart disease with heart failure - group home (current) use of anticoagulants - Nicotine dependence, unspecified, uncomplicated - Other longshore equipment operator (current) drug therapy - Other stimulant abuse, uncomplicated - Type 2 diabetes mellitus with diabetic chronic kidney disease 03/28/2023 05:37 [facility] [place] TYPE: Emergency COMPLAINT: - CHEST PAIN, SHORTNESS OF BREATH DIAGNOSES: - CHEST PAIN, SHORTNESS OF BREATH 03/22/2023 08:17 [facility] [place] TYPE: Emergency COMPLAINT: - SOB,COUGH DIAGNOSES: - Contact with and (suspected) exposure to COVID-19 - Cough, unspecified - Heart failure, unspecified - Hypertensive heart disease with heart failure - habilitation specialist (current) use of anticoagulants - Nicotine dependence, unspecified, uncomplicated - Other correction (current) drug therapy - Type 2 diabetes mellitus without complications 03/18/2023 04:53 [facility] [place] TYPE: Emergency COMPLAINT: - RT HIP PAIN DIAGNOSES: - Alcohol abuse, uncomplicated - Heart failure, unspecified - Homelessness unspecified - Hypertensive heart disease with heart failure - group home (current) use of anticoagulants - group home (current) use of oral hypoglycemic drugs - Nicotine dependence, unspecified, uncomplicated - Other chronic pain - Other correction (current) drug therapy - Other stimulant abuse, [...] failure - Inflammatory liver disease, unspecified - group home (current) use of anticoagulants - habilitation specialist (current) use of oral hypoglycemic drugs - Nicotine dependence, unspecified, uncomplicated - Other correction (current) drug therapy - Other psychoactive substance abuse, uncomplicated - Type 2 diabetes mellitus without complications - Unspecified abdominal pain 01/13/2023 14:59 [facility] TYPE: Emergency DIAGNOSES: - Acute on chronic systolic (congestive) heart failure - Intracardiac thrombosis, not elsewhere classified - Other pulmonary embolism without acute cor pulmonale - Shortness of breath - Medical Problem (Minor) - Shortness of Breath 01/04/2023 05:[address] [facility] [address] [facility] [place] TYPE: Emergency COMPLAINT: - CP DIAGNOSES: - Cardiac arrest, cause unspecified - Chest pain, unspecified - Contact with and (suspected) exposure to COVID- - Gastro-esophageal reflux disease without esophagitis - Heart failure, unspecified - Hypertensive heart disease with heart failure - Long-term (current) use of injectable non-insulin antidiabetic drugs - Nicotine dependence, unspecified, uncomplicated - Other correction (current) drug therapy - Other stimulant abuse with intoxication, unspecified - Pneumonia, unspecified organism - Type 2 diabetes mellitus with diabetic neuropathy, unspecified - Unspecified viral hepatitis C 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 coma 12/19/2022 13:29 [facility]) TYPE: Emergency DIAGNOSES: - Heart failure, unspecified - Non-ST elevation (NSTEMI) myocardial infarction - Other pulmonary embolism without acute cor pulmonale - Pneumonia, unspecified organism - Chest Pain - chest pain and sob/ccoughing up blood - Cough 11/14/2022 11:35 [facility] ([place]) TYPE: Emergency DIAGNOSES: - Unspecified systolic (congestive) heart failure - Difficulty Breathing - Difficulty Breathing; Poss Hernia - Shortness of Breath 11/13/2022 12:34 [facility] TYPE: Emergency COMPLAINT: - CHEST PAIN DIAGNOSES: - Chest pain, unspecified - Essential (primary) hypertension - Gastro-esophageal reflux disease without esophagitis - Hepatic failure, unspecified without coma - habilitation specialist (current) use of oral hypoglycemic drugs - Nicotine dependence, unspecified, uncomplicated - Other longshore equipment operator (current) drug therapy - Type 2 [...] - Gastro-esophageal reflux disease without esophagitis - group home (current) use of oral hypoglycemic drugs - Nicotine dependence, unspecified, uncomplicated - Other longshore equipment operator (current) drug therapy - Type 2 diabetes mellitus with diabetic neuropathy, unspecified 10/13/2022 00:51 [facility] [place] TYPE: Emergency COMPLAINT: - LOWER ABD PAIN DIAGNOSES: - Acute bronchitis, unspecified - Contact with and (suspected) exposure to COVID-19 - Diverticulitis of large intestine without perforation or abscess without bleeding - habilitation specialist (current) use of oral hypoglycemic drugs - Other longshore equipment operator (current) drug therapy - Type 2 diabetes mellitus without complications - Unilateral inguinal hernia, without obstruction or gangrene, not specified as recurrent - Unspecified abdominal pain INPATIENT VISIT TRACKING (12 MO.) 07/24/2023 23:40 [facility] TYPE: Cardiology DIAGNOSES: 66512. Cardiac arrest, cause unspecified [id number]. Post Code 93838. Cardiomyopathy due to drug and external agent 07/24/2023 12:37 [facility] [place] TYPE: Medical Surgical DIAGNOSES: - Acute systolic (congestive) heart failure - Heart failure, unspecified 03/28/2023 05:37 [facility] DIAGNOSES: - Heart failure, unspecified 03/10/2023 19:52 [facility] [place] TYPE: [facility] DIAGNOSES: 29483. Acute and subacute hepatic failure without coma 97529. acute hepatitis with encephalopathy, request for liver transplant eval [id number]. Acute and subacute hepatic failure without coma 72571. Housing instability, housed unspecified . group home (current) use of insulin 57722. Type 2 diabetes mellitus without complications 01/04/2023 11:36 [facility] TYPE: Internal Medicine DIAGNOSES: - Acute on chronic systolic (congestive) heart failure - Cardiac arrest, cause unspecified - Encounter for palliative care - Intracardiac thrombosis, not elsewhere classified - Other malaise - Other specified counseling - Other stimulant abuse, uncomplicated - PEA cardiac arrest 12/19/2022 13:29 [facility] [place] ([place]) TYPE: Intensive Care DIAGNOSES: - Acute on chronic systolic (congestive) heart failure - Bacteremia - Heart failure, unspecified - Hemoptysis - Non-ST elevation (NSTEMI) myocardial infarction - Other pulmonary embolism without acute cor pulmonale - Other stimulant abuse, uncomplicated - Pneumonia, unspecified organism - Type 2 diabetes mellitus with hyperglycemia - Unspecified systolic (congestive) heart failure 10/31/2022 11:[address] 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
[2023-09-18 11:13] LABS: HEMOGLOBIN 12.1 g/dL (12.0-18.0); RDW 18.6 (10.5-15.0)
[2023-09-18 11:15] LABS: HEMATOCRIT 39.9 % (35.0-50.0); MCH 25.2 (27-36); MCHC 30.4 g/dl (30-36); PLATELET COUNT 348 K/uL (140-440); RBC 4.81 M/ul (4.3-5.7)
[2023-09-18 11:32] LABS: ALBUMIN 2.8 g/dL (3.4-5.0); ALBUMIN/GLOBULIN RATIO 0.7 (1.1-2.4); BILIRUBIN, TOTAL 1.6 ng/dL (0.2-1.0); BUN/CREATININE RATIO 22.65 (6.0-28.6); CALCIUM 8.1 mg/dL (8.5-10.1); CREATININE, SERUM 1.28 mg/dL (0.70-1.30); PROTEIN, TOTAL 6.8 g/dL (6.4-8.2)
[2023-09-18 11:33] LABS: BANDS, MANUAL DIFF 2; BASOPHILS, MANUAL DIFF 3; LYMPHOCYTES, MANUAL DIFF 10; MONOCYTES, MANUAL DIFF 8; NEUTROPHILS, MANUAL DIFF 77
[2023-09-18 14:15] LABS: INFLUENZA B NAA NEGATIVE (NEGATIVE); RESPIRATORY SYNCYTIAL VIR NAA NEGATIVE (NEGATIVE)
[2023-09-18 14:17] VITALS: BP 108/76
--- NOTE | 2023-09-18 23:01 | EKG ---
[facility] [address] [place] [address] Signed Sinus rhythm with occasional premature ventricular complexes and fusion complexes Inferior infarct , age undetermined T wave abnormality, consider anterolateral ischemia Prolonged QT Abnormal ECG When compared with ECG of 14-APR-2023 02:12, Inferior infarct is now present Confirmed by Dada Ayala MD () on 09/18/2023 11:01:24 PM Electronically Signed By: DADA AYALA MD 09/18/23 2301 PATIENT NAME: RENNYKAYKAY Viri Electrocardiogram DATE OF : 72 PHYSICIAN: DADA AYALA MD REPORT #: [id number] REPORT IS CONFIDENTIAL AND NOT TO BE RELEASED WITHOUT AUTHORIZATION
== END 2023-09-18 14:18 | disposition short-term general hospital (02) ==
LOC: ED 10:41
PROVIDERS: Emergency Medicine
DX: I11.0 Hypertensive heart disease with heart failure (principal); I50.9 Heart failure, unspecified; R57.0 Cardiogenic shock; J98.4 Other disorders of lung; E11.40 Type 2 diabetes mellitus with diabetic neuropathy, unspecified; F17.200 Nicotine dependence, unspecified, uncomplicated; Z79.01 Long term (current) use of anticoagulants; Z79.899 Other long term (current) drug therapy
CPT/HCPCS: 36415; 71045; 80053; 83880; 84484; 85025; 87502; 93005; 93010; 96365; 96375; 99285-25; C9803; J0696; J1940; J7030; U0002

== ENCOUNTER 2023-09-22 09:22 | Emergency (ER) | payer OTHER ==
[~2023-09-22] VITALS: Ht 182.9 cm; Wt 84.0 kg
--- NOTE | ~2023-09-22 | EKG ---
[facility] [address] [place], [place] [address] Draft EK completed, results pending confirmation PATIENT NAME: RENNYKAYKAY Electrocardiogram DATE OF : 72 PHYSICIAN: PRELIMINARY REPORT #: [id number] REPORT IS CONFIDENTIAL AND NOT TO BE RELEASED WITHOUT AUTHORIZATION
--- OUTSIDE RECORDS SUMMARY | ~2023-09-22 | XMS | Continuity of Care Document ---
Demographics + + + | Address | [address] | | | [place] [address] | + + + | Preferred Language | Unknown | + + + | Marital Status | Unknown | + + + | Mormon Affiliation | Unknown | + + + | Race | White | + + + | Ethnic Group | Unknown | + + + Author + + + | Author | [facility] | + + + | Organization | [facility] | + + + | Address | [address] | | | [place] [address] | + + + | Phone | | + + + Care Team Providers + + + + | Care Biomass Technician Name | Role | Phone | + + + + Unavailable | Unavailable | + + + + Allergies No information. Encounters No information. Functional Status No information. Immunizations No information. Medications No information. Problems + + + + | date | description | facility | + + + + | 2023-07-14 15:46:11 | Encounter for general | [facility] | | | adult medical examination | | | | without abnormal findings | | + + + + | 2023-07-14 16:10:16 | Encounter for general | [facility] | | | adult medical examination | | | | without abnormal findings | | + + + + | 2023-07-17 21:25:25 | Other intermediate card tender (current) | [facility] | | | drug therapy | | + + + + Procedures No information. Results/Labs No information. Social History +--------+ + + | date | description | facility | +--------+ + + Vital Signs No information."
--- OUTSIDE RECORDS SUMMARY | 2023-09-22 09:30 | XMS ---
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 [place] VISIT COUNT (12 MO.) 11 [facility] 3 [facility] 3 [facility] [facility] 1 [facility] [address] [facility] TOTAL 19 NOTE: Visits indicate total known visits. ED/UCC VISIT TRACKING (12 MO.) 09/22/2023 09:23 [facility] [place] TYPE: Emergency COMPLAINT: - SOB, COUGHING BLOOD, WEAKNESS, NO APPETITE 09/18/2023 [facility]:04 [facility]: [facility] DIAGNOSES: - Acute on chronic systolic (congestive) heart failure - Other specified disorders of the male genital organs - Chest Pain - CP, SOB - Shortness of Breath 09/18/2023 10:42 [facility] [place] TYPE: Emergency COMPLAINT: - SOB, INCONTINENCE, PANIC ATTACKS DIAGNOSES: - Cardiogenic shock - Chest pain, unspecified - Heart failure, unspecified - Hypertensive heart disease with heart failure - long-term (current) use of anticoagulants - Nicotine dependence, unspecified, uncomplicated - Other disorders of lung - Other group home (current) drug therapy - Type 2 diabetes mellitus with diabetic neuropathy, unspecified 07/24/2023 12:37 [facility] [place] TYPE: Emergency COMPLAINT: - GENERAL DIAGNOSES: - GENERAL 07/23/2023 15:59 [facility] [place] TYPE: Emergency COMPLAINT: - TROUBLE BREATHING TROUBLE WALKING DIAGNOSES: - TROUBLE BREATHING TROUBLE WALKING 07/14/2023 15:46 [facility] [place] [facility] TYPE: Emergency COMPLAINT: - MEDICAL CLEARANCE DIAGNOSES: - Encounter for general adult medical examination without abnormal findings - MEDICAL CLEARANCE 04/14/2023 00:07 [facility] [place] TYPE: Emergency COMPLAINT: - CHEST PAIN DIAGNOSES: - Chest pain, unspecified - Heart failure, unspecified - Hypertensive heart disease with heart failure - art objects salesperson (current) use of anticoagulants - Nicotine dependence, unspecified, uncomplicated - Other group home (current) drug therapy - Other stimulant abuse, uncomplicated - Type 2 diabetes mellitus with diabetic chronic kidney disease 03/28/2023 05:37 [facility] [place] TYPE: Emergency COMPLAINT: - CHEST PAIN, SHORTNESS OF BREATH DIAGNOSES: - CHEST PAIN, SHORTNESS OF BREATH 03/22/2023 08:17 [facility] [place] TYPE: Emergency COMPLAINT: - SOB,COUGH DIAGNOSES: - Contact with and (suspected) exposure to COVID-19 - Cough, unspecified - Heart failure, unspecified - Hypertensive heart disease with heart failure - art objects salesperson (current) use of anticoagulants - Nicotine dependence, unspecified, uncomplicated - Other order taker (current) drug therapy - Type 2 diabetes mellitus without complications 03/18/2023 04:53 [facility] [place] TYPE: Emergency COMPLAINT: - RT HIP PAIN DIAGNOSES: - Alcohol abuse, uncomplicated - Heart failure, unspecified - Homelessness unspecified - Hypertensive heart disease with heart failure - art objects salesperson (current) use of anticoagulants - art objects salesperson (current) use of oral hypoglycemic drugs - Nicotine dependence, unspecified, uncomplicated - Other chronic pain - Other order taker (current) drug therapy - Other stimulant abuse, [...] failure - Inflammatory liver disease, unspecified - long-term (current) use of anticoagulants - long-term (current) use of oral hypoglycemic drugs - Nicotine dependence, unspecified, uncomplicated - Other order taker (current) drug therapy - Other psychoactive substance abuse, uncomplicated - Type 2 diabetes mellitus without complications - Unspecified abdominal pain 01/13/2023 14:59 [facility] TYPE: Emergency DIAGNOSES: - Acute on chronic systolic (congestive) heart failure - Intracardiac thrombosis, not elsewhere classified - Other pulmonary embolism without acute cor pulmonale - Shortness of breath - Medical Problem (Minor) - Shortness of Breath 01/04/2023 05:40 [facility] [place] TYPE: Emergency COMPLAINT: - CP DIAGNOSES: - Cardiac arrest, cause unspecified - Chest pain, unspecified - Contact with and (suspected) exposure to COVID-19 - Gastro-esophageal reflux disease without esophagitis - Heart failure, unspecified - Hypertensive heart disease with heart failure - Long-term (current) use of injectable non-insulin antidiabetic drugs - Nicotine dependence, unspecified, uncomplicated - Other group home (current) drug therapy - Other stimulant abuse with intoxication, unspecified - Pneumonia, unspecified organism - Type 2 diabetes mellitus with diabetic neuropathy, unspecified - Unspecified viral hepatitis C 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 coma 12/19/2022 13:29 [facility] [facility] TYPE: Emergency DIAGNOSES: - Heart failure, unspecified - Non-ST elevation (NSTEMI) myocardial infarction - Other pulmonary embolism without acute cor pulmonale - Pneumonia, unspecified organism - Chest Pain - chest pain and sob/ccoughing up blood - Cough 11/14/2022 11:35 [facility] ([place] [facility]) TYPE: Emergency DIAGNOSES: - Unspecified systolic (congestive) heart failure - Difficulty Breathing - Difficulty Breathing; Poss Hernia - Shortness of Breath 11/13/2022 12:34 [facility] [place] TYPE: Emergency COMPLAINT: - CHEST PAIN DIAGNOSES: - Chest pain, unspecified - Essential (primary) hypertension - Gastro-esophageal reflux disease without esophagitis - Hepatic failure, unspecified without coma - art objects salesperson (current) use of oral hypoglycemic drugs - Nicotine dependence, unspecified, uncomplicated - Other order taker (current) drug therapy - Type 2 diabetes [...] - Gastro-esophageal reflux disease without esophagitis - long-term (current) use of oral hypoglycemic drugs - Nicotine dependence, unspecified, uncomplicated - Other group home (current) drug therapy - Type 2 diabetes mellitus with diabetic neuropathy, unspecified 10/13/2022 00:51 [facility] [place] TYPE: Emergency COMPLAINT: - LOWER ABD PAIN DIAGNOSES: - Acute bronchitis, unspecified - Contact with and (suspected) exposure to COVID-19 - Diverticulitis of large intestine without perforation or abscess without bleeding - long-term (current) use of oral hypoglycemic drugs - Other order taker (current) drug therapy - Type 2 diabetes mellitus without complications - Unilateral inguinal hernia, without obstruction or gangrene, not specified as recurrent - Unspecified abdominal pain INPATIENT VISIT TRACKING (12 MO.) 09/18/2023 15:[address] [facility] ([place] Avila) TYPE: Medical Surgical DIAGNOSES: - Acute on chronic systolic (congestive) heart failure - Cardiomyopathy, unspecified - Chronic pulmonary embolism - Essential (primary) hypertension - Other specified disorders of the male genital organs - Other stimulant abuse, uncomplicated - Type 2 diabetes mellitus with hyperglycemia 07/24/2023 23:40 [facility] TYPE: Cardiology DIAGNOSES: 21014. Cardiac arrest, cause unspecified 40052. Post Code 00901. Cardiomyopathy due to drug and external agent 07/24[facility]2023 [facility] DIAGNOSES: - Acute systolic (congestive) heart failure - Heart failure, unspecified 03/28/2023 05:37 [facility] [place] TYPE: Medical Surgical DIAGNOSES: - Heart failure, unspecified 03/10/2023 19:52 [facility] [place] TYPE: Family Practice DIAGNOSES: 24581. Acute and subacute hepatic failure without coma 11756. acute hepatitis with encephalopathy, request for liver transplant eval . Acute and subacute hepatic failure without coma . Housing instability, housed unspecified . long-term (current) use of insulin 19424. Type 2 diabetes mellitus without complications 01/04/2023 11:36 [facility] TYPE: Internal Medicine DIAGNOSES: - Acute on chronic systolic (congestive) heart failure - Cardiac arrest, cause unspecified - Encounter for palliative care - Intracardiac thrombosis, not elsewhere classified - Other malaise - Other specified counseling - Other stimulant abuse, uncomplicated - PEA cardiac arrest 12/19/2022 13:29 [facility] [place] [facility] TYPE: Intensive Care DIAGNOSES: - Acute on chronic systolic (congestive) heart failure - Bacteremia - Heart failure, unspecified - Hemoptysis - Non-ST elevation (NSTEMI) myocardial infarction - Other pulmonary embolism without acute cor pulmonale - Other stimulant abuse, uncomplicated - Pneumonia, unspecified organism - Type 2 diabetes mellitus with hyperglycemia - Unspecified systolic (congestive) heart failure 10/31/2022 11:[address] [facility] [place] TYPE: Medical Surgical COMPLAINT: - [...] scrotum - Inflammatory disorders of scrotum - art objects salesperson (current) use of oral hypoglycemic drugs - long-term (current) use of oral hypoglycemic drugs - Nicotine dependence, cigarettes, uncomplicated - Nicotine dependence, cigarettes, uncomplicated - Other order taker (current) drug therapy - Other group home (current) drug therapy - Other specified postprocedural [...] Unspecified viral hepatitis C 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 coma [email or web address]
[2023-09-22 10:24] LABS: BASOPHILS 0.2 % (0-2); HEMATOCRIT 41.9 % (35.0-50.0); LYMPHOCYTES 9.3 % (24-44); MCH 25.3 (27-36); MCHC 31.1 g/dl (30-36); MCV 81.4 fl (81-99); MONOCYTES 8.7 % (0-12); NEUTROPHILS 81.8 % (39-80); PLATELET COUNT 460 K/uL (140-440); RBC 5.15 M/ul (4.3-5.7)
[2023-09-22 10:43] LABS: ALBUMIN 3.2 g/dL (3.4-5.0); ALBUMIN/GLOBULIN RATIO 0.8 (1.1-2.4); ANION GAP 18.3 (7-21); BILIRUBIN, TOTAL 3.2 ng/dL (0.2-1.0); BUN/CREATININE RATIO 23.91 (6.0-28.6); CALCIUM 9.1 mg/dL (8.5-10.1); CREATININE, SERUM 1.38 mg/dL (0.70-1.30); POTASSIUM 4.3 mmol/L (3.5-5.1); PROTEIN, TOTAL 7.2 g/dL (6.4-8.2)
[2023-09-22 10:50] LABS: INFLUENZA B NAA NEGATIVE (NEGATIVE); RESPIRATORY SYNCYTIAL VIR NAA NEGATIVE (NEGATIVE)
[2023-09-22 11:18] LABS: AMPHETAMINES, URINE POSITIVE (NEGATIVE); BARBITURATES, URINE NEGATIVE (NEGATIVE); BENZODIAZEPINE, URINE NEGATIVE (NEGATIVE); BUPRENORPHINE, URINE NEGATIVE (NEGATIVE); CANNABINOID, URINE POSITIVE (NEGATIVE); COCAINE, URINE NEGATIVE (NEGATIVE); ECSTASY, URINE POSITIVE (NEGATIVE); FENTANYL, URINE NEGATIVE (NEGATIVE); METHADONE, URINE NEGATIVE (NEGATIVE); OPIATES, URINE NEGATIVE (NEGATIVE); OXYCODONE, URINE NEGATIVE (NEGATIVE); PHENCYCLIDINE, URINE NEGATIVE (NEGATIVE)
[2023-09-22 15:35] VITALS: BP 96/77
== END 2023-09-22 14:59 | disposition left against medical advice (07) ==
LOC: ED 09:22
PROVIDERS: Emergency Medicine
DX: I21.4 Non-ST elevation (NSTEMI) myocardial infarction (principal); I11.0 Hypertensive heart disease with heart failure; I50.9 Heart failure, unspecified; Z53.29 Procedure and treatment not carried out because of patient's decision for other reasons; E11.40 Type 2 diabetes mellitus with diabetic neuropathy, unspecified; F17.200 Nicotine dependence, unspecified, uncomplicated; Z79.01 Long term (current) use of anticoagulants; Z79.899 Other long term (current) drug therapy; Z20.822 Contact with and (suspected) exposure to COVID-19; Z95.810 Presence of automatic (implantable) cardiac defibrillator
CPT/HCPCS: 36415; 71045; 80053; 80307; 83880; 84484; 85025; 87502; 93005; 93010; C9803; U0002

== ENCOUNTER 2023-10-01 15:05 | Emergency (ER) | payer OTHER ==
[~2023-10-01] VITALS: Ht 182.9 cm; Wt 83.9 kg
--- OUTSIDE RECORDS SUMMARY | 2023-10-01 15:08 | XMS ---
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 E.D. VISIT COUNT (12 MO.) 12 [facility] 3 [facility] 3 [facility] ([place] [facility] 1 [facility] [address] [facility] TOTAL 20 NOTE: Visits indicate total known visits. 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 - Presence of automatic (implantable) cardiac defibrillator - Procedure and treatment not carried out because of patient's decision for other reasons - Shortness of breath - Type 2 diabetes mellitus with diabetic neuropathy, unspecified 09/18/2023 15:04 [facility] [place] [facility] ([place]) TYPE: Emergency DIAGNOSES: - Acute on chronic systolic (congestive) heart failure - Other specified disorders of the male genital organs - Chest Pain - CP, SOB - Shortness of Breath 09/18/2023 10:42 [facility] [place] TYPE: Emergency COMPLAINT: - SOB, INCONTINENCE, PANIC ATTACKS DIAGNOSES: - Cardiogenic shock - Chest pain, unspecified - Encounter for screening for COVID-19 - Heart failure, unspecified - Hypertensive heart disease with heart failure - terminal gauger (current) use of anticoagulants - Nicotine dependence, unspecified, uncomplicated - Other disorders of lung - 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 COMPLAINT: - MEDICAL CLEARANCE DIAGNOSES: - Encounter for general adult medical examination without abnormal findings - MEDICAL CLEARANCE 04/14/2023 00:[address] [facility] [address] [facility] [place] TYPE: Emergency COMPLAINT: - CHEST PAIN DIAGNOSES: - Chest pain, unspecified - Heart failure, unspecified - Hypertensive heart disease with heart failure - terminal gauger (current) use of anticoagulants - Nicotine dependence, unspecified, uncomplicated - Other retirement (current) drug therapy - Other stimulant abuse, uncomplicated - Type 2 diabetes mellitus with diabetic chronic kidney disease 03/28/2023 05:37 [facility] [place] TYPE: Emergency COMPLAINT: - CHEST PAIN, SHORTNESS OF BREATH DIAGNOSES: - CHEST PAIN, SHORTNESS OF BREATH 03/22/2023 08:17 [facility] [place] TYPE: Emergency COMPLAINT: - SOB,COUGH DIAGNOSES: - Contact with and (suspected) exposure to COVID-19 - Cough, unspecified - Heart failure, unspecified - Hypertensive heart disease with heart failure - USP (current) use of anticoagulants - Nicotine dependence, unspecified, uncomplicated - Other retirement (current) drug therapy - Type 2 diabetes mellitus without complications 03/18/2023 04:53 [facility] [place] TYPE: Emergency COMPLAINT: - RT HIP PAIN DIAGNOSES: - Alcohol abuse, uncomplicated - Heart failure, unspecified - Homelessness unspecified - Hypertensive heart disease with heart failure - terminal gauger (current) use of anticoagulants - terminal gauger (current) use of oral hypoglycemic drugs - Nicotine dependence, unspecified, uncomplicated - Other chronic pain - 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 - Other stimulant abuse, [...] failure - Inflammatory liver disease, unspecified - USP (current) use of anticoagulants - USP (current) use of oral hypoglycemic drugs - Nicotine dependence, unspecified, uncomplicated - Other retirement (current) drug therapy - Other psychoactive substance abuse, uncomplicated - Type 2 diabetes mellitus without complications - Unspecified abdominal pain 01/13/2023 14:59 [facility] TYPE: Emergency DIAGNOSES: - Acute [...] - Nicotine dependence, unspecified, uncomplicated - 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 - Other stimulant abuse with intoxication, unspecified - Pneumonia, unspecified organism - Type 2 diabetes mellitus with diabetic neuropathy, unspecified - Unspecified viral hepatitis C 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 coma 12/19/2022 13:29 [facility] [place] [facility]IP[facility] ([place]) TYPE: Emergency DIAGNOSES: - Heart failure, unspecified - Non-ST elevation (NSTEMI) myocardial infarction - Other pulmonary embolism without acute cor pulmonale - Pneumonia, unspecified organism - Chest Pain - chest pain and sob/ccoughing up blood - Cough 11/14/2022 11:35 [facility] [place] DIP[facility] ([place]) TYPE: Emergency DIAGNOSES: - Unspecified systolic (congestive) heart failure - Difficulty Breathing - Difficulty Breathing; Poss Hernia - Shortness of Breath 11/13/2022 12:34 [facility] [place] TYPE: Emergency COMPLAINT: - CHEST PAIN DIAGNOSES: - Chest pain, unspecified - Essential (primary) hypertension - Gastro-esophageal reflux disease without esophagitis - Hepatic failure, unspecified without coma - USP (current) use of oral hypoglycemic drugs - Nicotine dependence, unspecified, uncomplicated - 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 - Type 2 diabetes [...] - Gastro-esophageal reflux disease without esophagitis - terminal gauger (current) use of oral hypoglycemic drugs - Nicotine dependence, unspecified, uncomplicated - 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 - Type 2 diabetes mellitus with diabetic neuropathy, unspecified 10/13/2022 00:51 [facility] [place] TYPE: Emergency COMPLAINT: - LOWER ABD PAIN DIAGNOSES: - Acute bronchitis, unspecified - Contact with and (suspected) exposure to COVID-19 - Diverticulitis of large intestine without perforation or abscess without bleeding - terminal gauger (current) use of oral hypoglycemic drugs - Other retirement (current) drug therapy - Type 2 diabetes mellitus without complications - Unilateral inguinal hernia, without obstruction or gangrene, not specified as recurrent - Unspecified abdominal pain INPATIENT VISIT TRACKING (12 MO.) 09/18/2023 15:04 [facility] ([place]) TYPE: Medical Surgical DIAGNOSES: - Acute on chronic systolic (congestive) heart failure - Cardiomyopathy, unspecified - Chronic pulmonary embolism - Essential (primary) hypertension - Other specified disorders of the male genital organs - Other stimulant abuse, uncomplicated - Type 2 diabetes mellitus with hyperglycemia 07/24/2023 23:40 [facility] TYPE: Cardiology DIAGNOSES: 35709. Cardiac arrest, cause unspecified [id number]. Post Code 28868. Cardiomyopathy due to drug and external agent 07/24/2023 12:[address] [facility] TYPE: Medical Surgical DIAGNOSES: - Acute systolic (congestive) heart failure - Heart failure, unspecified 03/28/2023 05:37 [facility] [place] TYPE: Medical Surgical DIAGNOSES: - Heart failure, unspecified 03/10/2023 19:52 [facility] [place] TYPE: [facility] DIAGNOSES: 56468. Acute and subacute hepatic failure without coma 84601. acute hepatitis with encephalopathy, request for liver transplant eval [id number]. Acute and subacute hepatic failure without coma 46724. Housing instability, housed unspecified 65852. USP (current) use of insulin 12261. Type 2 diabetes mellitus without complications 01/04/2023 11:36 [facility] TYPE: Internal Medicine DIAGNOSES: - Acute on chronic systolic (congestive) heart failure - Cardiac arrest, cause unspecified - Encounter for palliative care - Intracardiac thrombosis, not elsewhere classified - Other malaise - Other specified counseling - Other stimulant abuse, uncomplicated - PEA cardiac arrest 12/19/2022 13:29 [facility] [place] ([place]) TYPE: Intensive Care DIAGNOSES: - Acute on [...] scrotum - Inflammatory disorders of scrotum - USP (current) use of oral hypoglycemic drugs - terminal gauger (current) use of oral hypoglycemic drugs - Nicotine dependence, cigarettes, uncomplicated - Nicotine dependence, cigarettes, uncomplicated - Other retirement (current) drug therapy - Other retirement (current) drug therapy - Other specified postprocedural [...] Unspecified viral hepatitis C 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 coma [email or web address]
[2023-10-01 16:28] LABS: BASOPHILS 0.7 % (0-2); EOSINOPHILS 0.5 % (0-6); HEMATOCRIT 40.6 % (35.0-50.0); HEMOGLOBIN 12.3 g/dL (12.0-18.0); LYMPHOCYTES 7.9 % (24-44); MCH 24.3 (27-36); MCHC 30.3 g/dl (30-36); MONOCYTES 11.6 % (0-12); NEUTROPHILS 79.3 % (39-80); PLATELET COUNT 364 K/uL (140-440); RBC 5.07 M/ul (4.3-5.7); RDW 18.7 (10.5-15.0)
[2023-10-01 16:46] LABS: ALBUMIN 2.7 g/dL (3.4-5.0); ALBUMIN/GLOBULIN RATIO 0.63 (1.1-2.4); ANION GAP 10.3 (7-21); BILIRUBIN, TOTAL 2.1 ng/dL (0.2-1.0); BUN/CREATININE RATIO 18.38 (6.0-28.6); CALCIUM 8.3 mg/dL (8.5-10.1); CREATININE, SERUM 1.36 mg/dL (0.70-1.30); MAGNESIUM 1.7 mg/dL (1.8-2.4); POTASSIUM 3.3 mmol/L (3.5-5.1)
[2023-10-01] MEDS ORDERED: GABAPENTIN300 MG PO (17:42)
[2023-10-01] MEDS ORDERED: METOPROLOL SUCC25 MG PO (17:42)
[2023-10-01 18:43] LABS: BILIRUBIN, URINE NEGATIVE (negative); BLOOD/HGB, URINE NEGATIVE (Negative); KETONE, URINE NEGATIVE (Negative); LEUK ESTERASE, URINE NEGATIVE (negative); NITRITE, URINE NEGATIVE (negative); PH, URINE 5.5 (5-7)
[2023-10-01 18:45] LABS: INFLUENZA B NAA NEGATIVE (NEGATIVE); RESPIRATORY SYNCYTIAL VIR NAA NEGATIVE (NEGATIVE)
[2023-10-01 18:57] LABS: AMPHETAMINES, URINE POSITIVE (NEGATIVE); BARBITURATES, URINE NEGATIVE (NEGATIVE); BENZODIAZEPINE, URINE NEGATIVE (NEGATIVE); BUPRENORPHINE, URINE NEGATIVE (NEGATIVE); CANNABINOID, URINE NEGATIVE (NEGATIVE); COCAINE, URINE NEGATIVE (NEGATIVE); ECSTASY, URINE POSITIVE (NEGATIVE); FENTANYL, URINE NEGATIVE (NEGATIVE); METHADONE, URINE NEGATIVE (NEGATIVE); OPIATES, URINE NEGATIVE (NEGATIVE); OXYCODONE, URINE NEGATIVE (NEGATIVE); PHENCYCLIDINE, URINE NEGATIVE (NEGATIVE)
[2023-10-01] MEDS ORDERED: ONDANSETRON ODT8 MG PO (19:18)
[2023-10-01] MEDS ORDERED: ABILIFY5 MG PO (19:18)
[2023-10-01 19:39] VITALS: BP 110/74
--- NOTE | 2023-10-01 23:10 | EKG ---
[facility] [address] [place] [address] Signed Normal sinus rhythm Low voltage QRS ST \T\ T wave abnormality, consider lateral ischemia Prolonged QT Abnormal ECG When compared with ECG of 22-SEP-2023 10:04, fusion complexes are no longer present ST less elevated in Anterior leads Nonspecific T wave abnormality now evident in Inferior leads Nonspecific T wave abnormality now evident in Anterior leads Confirmed by Dada Ayala MD () on 10/01/2023 11:10:38 PM Electronically Signed By: DADA AYALA MD 10/01/23 2310 PATIENT NAME: KAYKAY LAWSON Electrocardiogram DATE OF : 72 PHYSICIAN: DADA AYALA MD REPORT #: [id number] REPORT IS CONFIDENTIAL AND NOT TO BE RELEASED WITHOUT AUTHORIZATION
== END 2023-10-01 19:40 | disposition home or self-care (01) ==
LOC: ED 15:05
PROVIDERS: Emergency Medicine
DX: I11.0 Hypertensive heart disease with heart failure (principal); I50.9 Heart failure, unspecified; K21.9 Gastro-esophageal reflux disease without esophagitis; E11.40 Type 2 diabetes mellitus with diabetic neuropathy, unspecified; F17.200 Nicotine dependence, unspecified, uncomplicated; Z79.899 Other long term (current) drug therapy; Z79.84 Long term (current) use of oral hypoglycemic drugs; Z20.822 Contact with and (suspected) exposure to COVID-19
CPT/HCPCS: 36415; 71045; 80053; 80307; 81003; 83735; 83880; 84484; 85025; 87502; 93005; 93010; 94640; 96374; 96375; 99285-25; A9270; C9803; J1940; J2405; U0002

== ENCOUNTER 2023-10-31 23:35 | Inpatient (IN) | payer OTHER ==
[~2023-10-31] VITALS: Ht 182.9 cm; Wt 72.8 kg
[~2023-10-31 23:35] MED LIST changes: +GABAPENTIN300 MG PO; +METOPROLOL SUCC25 MG PO; +ONDANSETRON ODT8 MG PO
--- OUTSIDE RECORDS SUMMARY | 2023-10-31 23:42 | XMS ---
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 [place] VISIT COUNT (12 MO.) 10 [facility] 3 [facility] [facility] 1 [facility] [address] [facility] TOTAL 18 NOTE: Visits indicate total known visits. ED/UCC VISIT TRACKING (12 MO.) 10/31/2023 23:35 [facility] [place] TYPE: Emergency COMPLAINT: - ALTERED LOC 10/01/2023 15:06 [facility] [place] TYPE: Emergency COMPLAINT: - SHORTNESS OF BREATH DIAGNOSES: - Contact with and (suspected) exposure to COVID-19 - Gastro-esophageal reflux disease without esophagitis - Heart failure, unspecified - Hypertensive heart disease with heart failure - [facility] (current) use of oral hypoglycemic drugs - Nicotine dependence, unspecified, uncomplicated - Other meterman (current) drug therapy - Shortness of breath - Type 2 diabetes mellitus with diabetic neuropathy, unspecified 09/22/2023 09:23 [facility] [place] TYPE: Emergency COMPLAINT: - SOB, COUGHING BLOOD, WEAKNESS, NO APPETITE DIAGNOSES: - Contact with and (suspected) exposure to COVID-19 - Heart failure, unspecified - Hypertensive heart disease with heart failure - terminal operations supervisor (current) use of anticoagulants - Nicotine dependence, unspecified, uncomplicated - Non-ST elevation (NSTEMI) myocardial infarction - Other residential (current) drug therapy - Presence of automatic (implantable) cardiac defibrillator - Procedure and treatment not carried out because of patient's decision for other reasons - Shortness of breath - Type 2 diabetes mellitus with diabetic neuropathy, unspecified 09/18/2023 15:04 [facility] [place] ([place]) TYPE: Emergency DIAGNOSES: - Acute on chronic [...] heart disease with heart failure - terminal operations supervisor (current) use of anticoagulants - Nicotine dependence, unspecified, uncomplicated - Other disorders of lung - Other meterman (current) drug therapy - Type 2 diabetes mellitus with diabetic neuropathy, unspecified 07/24/2023 12:37 [facility] COMPLAINT: - GENERAL DIAGNOSES: - GENERAL 07/23/2023 15:59 [facility] [place] TYPE: Emergency COMPLAINT: - TROUBLE BREATHING TROUBLE WALKING DIAGNOSES: - TROUBLE BREATHING TROUBLE WALKING 07/14/2023 15:46 [facility] TYPE: Emergency COMPLAINT: - MEDICAL CLEARANCE DIAGNOSES: - Encounter for general adult medical examination without abnormal findings - MEDICAL CLEARANCE 04/14/2023 00:07 [facility] [place] TYPE: Emergency COMPLAINT: - CHEST PAIN DIAGNOSES: - Chest pain, unspecified - Heart failure, unspecified - Hypertensive heart disease with heart failure - CHCF (current) use of anticoagulants - Nicotine dependence, unspecified, uncomplicated - Other meterman (current) drug therapy - Other stimulant abuse, [...] heart disease with heart failure - terminal operations supervisor (current) use of anticoagulants - Nicotine dependence, unspecified, uncomplicated - Other meterman (current) drug therapy - Type 2 diabetes mellitus without complications 03/18/2023 04:53 [facility] [place] TYPE: Emergency COMPLAINT: - RT HIP PAIN DIAGNOSES: - Alcohol abuse, uncomplicated - Heart failure, unspecified - Homelessness unspecified - Hypertensive heart disease with heart failure - CHCF (current) use of anticoagulants - [facility]CF (current) use of oral hypoglycemic drugs - Nicotine dependence, unspecified, uncomplicated - Other chronic pain - Other residential (current) drug therapy - Other stimulant abuse, [...] - Inflammatory liver disease, unspecified - terminal operations supervisor (current) use of anticoagulants - CHCF (current) use of oral hypoglycemic drugs - Nicotine dependence, unspecified, uncomplicated - Other residential (current) drug therapy - Other psychoactive substance [...] - Nicotine dependence, unspecified, uncomplicated - Other residential (current) drug therapy - Other stimulant abuse with intoxication, unspecified - Pneumonia, unspecified organism - Type 2 diabetes mellitus with diabetic neuropathy, unspecified - Unspecified viral hepatitis C 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 coma 12/19/2022 13:29 [facility] [place] [facility] ([place]) TYPE: Emergency DIAGNOSES: - Heart failure, unspecified - Non-ST elevation (NSTEMI) myocardial infarction - Other pulmonary embolism without acute cor pulmonale - Pneumonia, unspecified organism - Chest Pain - chest pain and sob/ccoughing up blood - Cough 11/14/2022 11:35 [facility] [place] ([place]) TYPE: Emergency DIAGNOSES: - Unspecified systolic (congestive) heart failure - Difficulty Breathing - Difficulty Breathing; Poss Hernia - Shortness of Breath 11/13/2022 12:34 [facility] [place] TYPE: Emergency COMPLAINT: - CHEST PAIN DIAGNOSES: - Chest pain, unspecified - Essential (primary) hypertension - Gastro-esophageal reflux disease without esophagitis - Hepatic failure, unspecified without coma - terminal operations supervisor (current) use of oral hypoglycemic drugs - Nicotine dependence, unspecified, uncomplicated - Other meterman (current) drug therapy - Type 2 diabetes mellitus with diabetic neuropathy, unspecified - Weakness INPATIENT VISIT TRACKING (12 MO.) 09/18/2023 15:04 [facility] TYPE: Medical Surgical DIAGNOSES: - Acute on chronic systolic (congestive) heart failure - Cardiomyopathy, unspecified - Chronic pulmonary embolism - Essential (primary) hypertension - Other specified disorders of the male genital organs - Other stimulant abuse, uncomplicated - Type 2 diabetes mellitus with hyperglycemia 07/24/2023 23:40 [facility] TYPE: Cardiology DIAGNOSES: 67952. Cardiac arrest, cause unspecified 28122. Post Code 22187. Cardiomyopathy due to drug and external agent 07/24/2023 12:37 [email or web address] [place] TYPE: Medical Surgical DIAGNOSES: - Acute systolic (congestive) heart failure - Heart failure, unspecified 03/28/2023 05:37 [facility] [place] TYPE: Medical Surgical DIAGNOSES: - Heart failure, unspecified 03/10/2023 19:52 [facility] [place] TYPE: [facility] DIAGNOSES: 27765. Acute and subacute hepatic failure without coma 05900. acute hepatitis with encephalopathy, request for liver transplant eval . Acute and subacute hepatic failure without coma 16456. Housing instability, housed unspecified 23650. terminal operations supervisor (current) use of insulin 49886. Type 2 diabetes mellitus without complications 01/04/2023 11:36 [facility] TYPE: Internal Medicine DIAGNOSES: - Acute on chronic systolic (congestive) heart failure - Cardiac arrest, cause unspecified - Encounter for palliative care - Intracardiac thrombosis, not elsewhere classified - Other malaise - Other specified counseling - Other stimulant abuse, uncomplicated - PEA cardiac arrest 12/19/2022 13:29 [facility] [place] ([place]) TYPE: Intensive Care DIAGNOSES: - Acute on chronic systolic (congestive) heart failure - Bacteremia - Heart failure, unspecified - Hemoptysis - Non-ST elevation (NSTEMI) myocardial infarction - Other pulmonary embolism without acute cor pulmonale - Other stimulant abuse, uncomplicated - Pneumonia, unspecified organism - Type 2 diabetes mellitus with hyperglycemia - Unspecified systolic (congestive) heart failure [email or web address]
[2023-10-31] MEDS ORDERED: VALSARTAN40 MG PO (23:54)
[2023-11-01] VITALS (19 sets, daily range): BP systolic 82–157; BP diastolic 54–134
[2023-11-01 00:01] LABS: BASOPHILS 0.2 % (0-2); EOSINOPHILS 0.2 % (0-6); HEMATOCRIT 41.5 % (35.0-50.0); HEMOGLOBIN 12.5 g/dL (12.0-18.0); LYMPHOCYTES 6.3 % (24-44); MCH 24.4 (27-36); MCHC 30.1 g/dl (30-36); MONOCYTES 10.4 % (0-12); NEUTROPHILS 82.9 % (39-80); PLATELET COUNT 218 K/uL (140-440); RBC 5.13 M/ul (4.3-5.7); RDW 22.5 (10.5-15.0)
[2023-11-01 00:13] LABS: ALBUMIN 3.5 g/dL (3.4-5.0); ALBUMIN/GLOBULIN RATIO 0.88 (1.1-2.4); ALCOHOL, MEDICAL <3 ng/dL (<3); ALKALINE PHOSPHATASE 93 U/L (46-116); ALT (SGPT) 40 U/L (14-59); ANION GAP 24.4 (7-21); AST (SGOT) 99 U/L (15-37); BILIRUBIN, TOTAL 3.6 ng/dL (0.2-1.0); BUN/CREATININE RATIO 22.96 (6.0-28.6); CALCIUM 9.5 mg/dL (8.5-10.1); CARBON DIOXIDE 22 mmol/L (21-32); CHLORIDE 99 mmol/L (98-107); CREATININE, SERUM 2.09 mg/dL (0.70-1.30); GLOMERULAR FILTRATION RATE,EST 37 mL/min (>60); POTASSIUM 6.4 mmol/L (3.5-5.1); PROTEIN, TOTAL 7.5 g/dL (6.4-8.2); UREA NITROGEN 48 mg/dL (7-18)
[2023-11-01 00:49] LABS: BILIRUBIN, URINE NEGATIVE (negative); BLOOD/HGB, URINE NEGATIVE (Negative); KETONE, URINE NEGATIVE (Negative); LEUK ESTERASE, URINE NEGATIVE (negative); NITRITE, URINE NEGATIVE (negative); PH, URINE 5.5 (5-7)
[2023-11-01 01:02] LABS: AMPHETAMINES, URINE POSITIVE (NEGATIVE); BARBITURATES, URINE NEGATIVE (NEGATIVE); BENZODIAZEPINE, URINE NEGATIVE (NEGATIVE); BUPRENORPHINE, URINE NEGATIVE (NEGATIVE); CANNABINOID, URINE NEGATIVE (NEGATIVE); COCAINE, URINE NEGATIVE (NEGATIVE); ECSTASY, URINE POSITIVE (NEGATIVE); FENTANYL, URINE NEGATIVE (NEGATIVE); METHADONE, URINE NEGATIVE (NEGATIVE); OPIATES, URINE NEGATIVE (NEGATIVE); OXYCODONE, URINE NEGATIVE (NEGATIVE); PHENCYCLIDINE, URINE NEGATIVE (NEGATIVE)
[2023-11-01 01:09] LABS: ANION GAP 26.7 (7-21); CREATININE, SERUM 2.13 mg/dL (0.70-1.30); POTASSIUM 4.7 mmol/L (3.5-5.1)
[2023-11-01 03:19] LABS: LACTIC ACID, BLOOD 11.3 mmol/L (0.4-2.0)
--- NOTE | 2023-11-01 06:10 | NUR ---
PT ARRIVES TO UNIT ON ER STRETCHER. REPORT GIVEN BEDSIDE. PT ASSESSED, PT CAN BE STIMULATED WITH PAIN AND NOISE, PT IS MAKING INCOMPRENDABLE SOUNDS, PT DOES NOT OPEN EYES. PT DOES LOCALIZE TO PAIN. PUPILS EQUAL AND BRISK. PT DOES HAVE INTERMITTENT TREMORS. PT TEMP WITH TEMP SINGLETARY IS 96.9 UPON ARRIVAL, SHAINA HUGGER APPLIED. PULSES ARE THREADY, EXTREMTIES ARE COLD AND BLUE. BILATERAL ANKLES ARE FLUSHED. PT SLIGHTLY HYPOTENSIVE. PROVIDER CALLED, ABD/PELVIS CT REVIEWED. ORDERS RECIEVED. BS 267. AT BEDSIDE, PT ARRIVED WITH 5 PERSONAL BELONGING BAGS. NOTIFIED THAT EVERYTHING WILL BE KEPT AT THE NURSES STATION UNTIL DISCHARGE AND THAT THIS IS A DRUG AND SMOKE FREE CAMPUS. EDUCATED ABOUT PT CONDITION AND PLAN OF CARE.
[2023-11-01 09:04] LABS: BASOPHILS 0.2 % (0-2); HEMATOCRIT 34.8 % (35.0-50.0); HEMOGLOBIN 10.8 g/dL (12.0-18.0); LYMPHOCYTES 9.7 % (24-44); MCH 24.5 (27-36); MCV 79.1 fl (81-99); MONOCYTES 9.7 % (0-12); NEUTROPHILS 80.4 % (39-80); PLATELET COUNT 175 K/uL (140-440); RDW 22.4 (10.5-15.0)
[2023-11-01 09:26] LABS: ANION GAP 16.4 (7-21); BILIRUBIN, TOTAL 2.2 ng/dL (0.2-1.0); BUN/CREATININE RATIO 25.36 (6.0-28.6); CALCIUM 8.2 mg/dL (8.5-10.1); CREATININE, SERUM 2.05 mg/dL (0.70-1.30); MAGNESIUM 1.6 mg/dL (1.8-2.4); POTASSIUM 4.4 mmol/L (3.5-5.1)
--- NOTE | 2023-11-01 09:30 | NUR ---
BEAR HUGGER OFF.
--- NOTE | 2023-11-01 09:58 | NUR ---
MOANING AT TIMES. HAVING SPASTIC JERKING MOVEMENTS RANDOMLY. NOT ABLE TO TAKE PO OF YET. NOT FOLLOWING COMMANDS. HAYDER PATENT.
--- NOTE | 2023-11-01 10:00 | NUR ---
IS AWAKE AND NOW FOLLOWING COMMANDS. SIPS OF WATER GIVEN, PATIENT WAS ABLE TO SWALLOW W/O PROBLEMS. WORDS ARE SOMEWHAT SLURRED, ABLE TO UNDESTAND WHAT PATIENT IS SAYING. HAS OCC COUGH. DR. AYALA IN PATIENT ROOM.
[2023-11-01] MEDS ORDERED: SOAANZ20 MG PO (10:13)
[2023-11-01] MEDS ORDERED: ARIPIPRAZOLE5 MG PO (10:13)
[2023-11-01] MEDS ORDERED: COREG3.125 MG PO (10:15)
[2023-11-01] MEDS ORDERED: ATORVASTATIN CA40 MG PO (10:22)
[2023-11-01] MEDS ORDERED: STEGLATRO5 MG PO (10:22)
--- NOTE | 2023-11-01 10:29 | NUR ---
PRODUCTIVE COUGH OF THICK BROWN RED STREAKED SPUTUM. VERY POOR EYE HAND CORDINATION AT THIS TIME. NEED MUCH DIRECTION.
--- NOTE | 2023-11-01 11:00 | NUR ---
OOB TO CHAIR WITH ASSIT OF PHYSICAL THERAPY AND RN. FRANCISCO JAVIER. CHAIR ALARM ON. CONTINUES HAVE JERKING LIKE MOVEMENTS. HAS BEEN COOPERATIVE.
--- NOTE | 2023-11-01 12:30 | NUR ---
ASSESSMENT DONE EARLIER. PICKING AT AIR AND ATTEMPING TO PUT OXIMETER IN MOUTH. ACCUCHECK 152, INSULIN 1 UNIT SQ GIVEN. READY TO EAT LUNCH.
--- NOTE | 2023-11-01 13:21 | NUR ---
SLEEPING IN CHAIR.
--- NOTE | 2023-11-01 13:50 | NUR ---
DR. AYALA UPDATED ON LABS, AND POSSIBLE NEED FOR PATIENT TO HAVE ANTIBOTICS.
--- NOTE | 2023-11-01 14:30 | NUR ---
BACK TO BED AFTER BEING TRANSFERRED TO [facility] TO HAVE BM THEN TO BED.
--- NOTE | 2023-11-01 15:10 | NUR ---
MG HUNG PER ORDERS. IVF INFUSING AT 200 ML/HR. SINGLETARY CATH PATENT. DIFFICULT TO OBTAIN ACCURATE BP PATIENT HAS PERIODS OF GROSS TREMORS.
--- NOTE | 2023-11-01 16:00 | NUR ---
ASSESSMENT DONE. EASIER TO UNDERSTAND. MORE ALERT. IVF CONTINUE TO INFUSE AT 200 ML/HR.
--- NOTE | 2023-11-01 17:00 | NUR ---
EKG DONE. LAB ALSO HERE TO DRAW LA. CONTINUES TO HAVE GROSS TREMORS AT TIMES.
--- NOTE | 2023-11-01 17:20 | NUR ---
LA-6. DR. AYALA NOTIFIED. ORDERS RECEIVED TO [facility] LR. PATIENT SITTNG UP IN BED FOR DINNER.
--- NOTE | 2023-11-01 20:00 | NUR ---
SHIFT REPORT RECEIVED. PATIENT RESTING IN BED WATCHING TV. PATIENT REQUESTED A SNACK WHICH WAS PROVIDED. PATIENT IS ALERT. DENIED OTHER NEEDS. CALL LIGHT IN REACH.
--- NOTE | 2023-11-01 21:00 | NUR ---
PT LAYING IN BED, PT VERY RESTLESS. PT ALERT BUT DISORIENTATED TO TIME AND SITUATION. PATIENT IS RESPONSIVE AND COOPERATIVE BUT AT TIMES GIVES INAPPROPRIATE RESPONSES. PT AT TIMES DOES HAVE VISUAL HALLUCINATIONS. PT HAS VISUAL INTERMITTENT TREMORS. PT IS COMPLAINING OF SCROTAL PAIN, SCROTUM DOES HAVE SWELLING. PROVIDER AT BEDSIDE TO ASSESS. PRN MEDICATION GIVEN. CALL LIGHT IS WITH IN REACH, BED ALARM IS SET, ANTI SLIP SOCKS ON PT, 4/4 BEDSIDE RAILS ARE IN USE.
[2023-11-01 22:34] LABS: ANION GAP 12.3 (7-21); BUN/CREATININE RATIO 29.82 (6.0-28.6); CALCIUM 8.2 mg/dL (8.5-10.1); CREATININE, SERUM 1.71 mg/dL (0.70-1.30); MAGNESIUM 1.8 mg/dL (1.8-2.4); POTASSIUM 4.3 mmol/L (3.5-5.1)
--- NOTE | 2023-11-01 22:45 | NUR ---
PT IS RESTING IN BED. PT SAYS HIS PAIN IS MANAGABLE. PT DOES HAVE MULTIPLE REQUESTS. ALL QUESTIONS AND CONCERNS ARE ADDRESSED AT THIS TIME. PT HAS CALL LIGHT WITH IN REACH, BED ALARM IS SET. ANTI-SLIP SOCKS IN PLACE. PT WAS GIVEN FOOD TRAY AND IS ASKING FOR MORE SNACKS.
--- NOTE | 2023-11-01 23:19 | EKG ---
[facility] [address] [place] [address] Signed Sinus rhythm with occasional premature ventricular complexes Possible Left atrial enlargement Left anterior fascicular block Inferior infarct , age undetermined Prolonged QT Abnormal ECG When compared with ECG of 01-OCT-2023 16:52, Significant changes have occurred Confirmed by Dada Ayala MD () on 11/01/2023 11:19:42 PM Electronically Signed By: DADA AYALA MD 11/01/23 2319 PATIENT NAME: RENNYKAYKAY C Electrocardiogram DATE OF : 72 PHYSICIAN: DADA AYALA MD REPORT #: [id number] REPORT IS CONFIDENTIAL AND NOT TO BE RELEASED WITHOUT AUTHORIZATION
--- NOTE | 2023-11-01 23:22 | EKG ---
[facility] [address] [place] [place] [address] Signed Sinus rhythm with occasional premature ventricular complexes Left axis deviation Low voltage QRS Inferior infarct (cited on or before 01-NOV-2023) ST \T\ T wave abnormality, consider lateral ischemia Prolonged QT Abnormal ECG When compared with ECG of 01-NOV-2023 01:54, Nonspecific T wave abnormality, worse in Inferior leads T wave inversion now evident in Lateral leads Confirmed by Dada Ayala MD () on 11/01/2023 11:21:46 PM Electronically Signed By: DADA AYALA MD 11/01/23 [facility] PATIENT NAME: KAYKAY LAWSON Electrocardiogram DATE OF : 72 PHYSICIAN: DADA AYALA MD REPORT #: [id number] REPORT IS CONFIDENTIAL AND NOT TO BE RELEASED WITHOUT AUTHORIZATION
[2023-11-02] VITALS (17 sets, daily range): BP systolic 96–150; BP diastolic 52–108
--- NOTE | 2023-11-02 00:25 | NUR ---
PT IS BROUGHT TO THE BATHROOM, PT IS AN ASSISTX1. PT DID HAVE A BOWEL MOVEMENT. PT ALSO PERFORMED ORAL CARE INDEPENDENTLY AT THIS TIME. PT SAT IN THE CHAIR AFTERWARDS. PT DOES HAVE MULTIPLE REQUESTS AT A TIME. PT STILL UNAWARE OF SITUATION OR TIME. PT DOES SEEM TO REPEAT QUESTIONS FREQUENTLY. PT HAS MUMBLED AND GARBLED SPEECH AT TIMES. PT IS STILL HAVING OCCASIONAL HALLUCINATIONS AND TREMORS. PT IS VERY RESTLESS. ALL QUESTIONS AND CONCERNS ADDRESSED AT THIS TIME. CHAIR ALARM IS ON, CALL LIGHT IS WITHIN REACH, ANTI-SLIP SOCKS ARE IN USE.
--- NOTE | 2023-11-02 02:00 | NUR ---
PT IS BACK TO BED. PT IS CURRENTLY EATING ANOTHER SUGAR FREE SNACK. PT HAS A MULTIPLE REQUESTS. PT DOES COMPLAIN OF SCROTAL PAIN, SINGLETARY CATHETER WAS KINKED AND CAUSED THIS PAIN. PRN MEDICATION GIVEN WELL. ALL OTHER QUESTIONS AND CONCERNS ADDRESSED. CALL LIGHT WITH IN REACH. BED ALARM IS SET, ANTI-SLIP FOOT WEAR IS IN PLACE.
--- NOTE | 2023-11-02 03:33 | NUR ---
IV PUMP ALARMING. NEW BAG IV FLUIDS PROVIDED. PT AWAKE IN BED, WATCHING TV. NO OTHER NEEDS AT THIS TIME. CALL LIGHT IN REACH, DOOR AND CURTAIN OPEN FOR OBSERVATION.
--- NOTE | 2023-11-02 04:29 | NUR ---
PT IS RESTING IN BED COMFORTABLY. NO COMPLAINTS OF PAIN AT THIS TIME. VITAL SIGNS REVIEWED. PT MAINTAINS HIS SAME NEURO STATUS. ALL QUESTIONS AND CONCERNS ADDRESSED. CALL LIGHT IS WITH IN REACH, BED ALARM IS SET, ANTI-SLIP SOCKS ARE IN PLACE.
--- NOTE | 2023-11-02 05:45 | NUR ---
PT IS RESTING IN BED. PT NEURO STATUS REMAINS THE SAME THROUGH OUT THE SHIFT. PT REMAINS ON RA, LUNGS CLEAR SPO2 IS ADEQUATE. PT IS NOT COMPLAINING OF PAIN CURRENTLY. ALL QUESTIONS AND CONCERNS ADDRESSED. CALL LIGHT IS WITH INREACH, SIDE RAILS ARE UP, AND ANTI-SLIP SOCKS ARE ON.
[2023-11-02 06:22] LABS: MAGNESIUM 1.9 mg/dL (1.8-2.4); PHOSPHORUS, INORGANIC 2.8 mg/dL (2.5-4.9)
[2023-11-02 06:24] LABS: ALBUMIN 2.9 g/dL (3.4-5.0); ALBUMIN/GLOBULIN RATIO 0.85 (1.1-2.4); ANION GAP 12.5 (7-21); BILIRUBIN, TOTAL 1.2 ng/dL (0.2-1.0); BUN/CREATININE RATIO 30.4 (6.0-28.6); CALCIUM 8.2 mg/dL (8.5-10.1); CREATININE, SERUM 1.48 mg/dL (0.70-1.30); POTASSIUM 4.5 mmol/L (3.5-5.1); PROTEIN, TOTAL 6.3 g/dL (6.4-8.2)
[2023-11-02 06:25] LABS: HEMATOCRIT 37.1 % (35.0-50.0); HEMOGLOBIN 11.3 g/dL (12.0-18.0); MCH 24.3 (27-36); MCHC 30.6 g/dl (30-36); MCV 79.2 fl (81-99); PLATELET COUNT 199 K/uL (140-440); RBC 4.68 M/ul (4.3-5.7); RDW 22.3 (10.5-15.0)
[2023-11-02 07:04] LABS: LYMPHOCYTES, MANUAL DIFF 20; MONOCYTES, MANUAL DIFF 9; NEUTROPHILS, MANUAL DIFF 71
--- NOTE | 2023-11-02 09:00 | NUR ---
PATIENT AWAKE IN BED, FINISHED WITH BREAKFAST. COMPLETE BED CHANGE AT THIS TIME. BEDBATH GIVEN, GOWN CHANGED. PATIENTS SCROTUM VERY PAINFUL WITH ACTIVY, BUT PATIENT ABLE TO STAND AT SIDE OF BED WHILE LINEN WAS CHANGED. CALL LIGHT IN EASY REACH. NO OTHER NEEDS AT THIS TIME
--- NOTE | 2023-11-02 11:00 | NUR ---
PATIENT SITTING UP IN RECLINER WATCHING TV. CALL LIGHT IN EASY REACH
[2023-11-02] MEDS ORDERED: TORSEMIDE20 MG PO (11:15)
[2023-11-02] MEDS ORDERED: VENTOLIN HFA18 GM INH (11:54)
--- NOTE | 2023-11-02 11:55 | NUR ---
MED REC COMPLETE
--- NOTE | 2023-11-02 12:11 | NUR ---
PATIENT ALERT AND ORIENTED, SITTING UP IN BED. STATES HE IS HOMELESS WITH HIS SIGNIFICANT OTHER. HAS PREVIOUSLY STAYED AT [email or web address] AND IS WORKING ON GETTING HOUSING THERE AGAIN WITH HIS SIGNIFICANT OTHER. STATES HE HAS [employer] FOR INSURANCE AND HAS NO DIFFICULTY OBTAINING MEDS. KNOWS WHERE WARMING STATIONS ARE LOCALLY AND HAS BEEN IN TOUCH WITH [facility] FREQUENTLY REGARDING NEEDS. KNOWS WHERE FOOD PANTRIES ARE AND IS AWARE OF SERVICES PROVIDED BY [email or web address] [facility] SL[facility]. PATIENT OFFERED [facility] REFERRAL FOR DRUG USE. STATES HE IS ALREADY INVOLVED WITH [facility]. STATES HIS BIGGEST CONCERN IS HOUSING. INFORMED HIM HE IS SPEAKING WITH RESOURCES AVAILABLE, [email or web address] AND [employer]. NO OTHER LOCAL OPTIONS AT THIS TIME. DENIES OTHER NEEDS. CALL LIGHT IN REACH.
--- NOTE | 2023-11-02 12:29 | NUR ---
PATIENT SITTING UP IN BED, LUNCH PROVIDED. IN ROOM AT THIS TIME. CALL LIGHT IN EASY REACH
--- NOTE | 2023-11-02 15:47 | NUR ---
UR NOTE [facility] GENERAL ADMISSION (GRG) INPATIENT 11/01/23 MET GENERAL ADMISSION CRITERIA
--- NOTE | 2023-11-02 16:00 | NUR ---
ASSESSMENT DONE. SLEEPY. DENIES PAIN. IS IN ROOM. DENIES ABD PAIN, ABD IS DISTENDED. IVF CONTINUE AT 200 ML/HR. LEFT ARM IS SWOLLEN, ELEVATED ON PILLOW, SL TO LAC DC'D WITH CATH INTACT.
--- NOTE | 2023-11-02 19:15 | NUR ---
NO CHANGES. PATIENT REMAINS IN ROOM. PATIENT IS SITTING UP IN BED WATCHING TV, RESTING AND VISITING WITH . REPORT TO NEXT SHIFT.
--- NOTE | 2023-11-02 21:30 | NUR ---
PT ASSESSED, PUPILS WHERE NOTED TO BE DIFFERENT SIZE AND SLUGGISH TO LIGHT. PT ALSO DISPLAYING INCREASED LETHARGY AND WORSENING SLURRED SPEECH. PROVIDER NOTIFIED, CT OBTAINED. NEUROTIN AND ELIQUIS HELD TILL RESULTSOF CT ARE OBTAINED. VITAL SIGNS REVIEWED. IVF DECREASED TO 100ML/HR. PT ALSO DENIES ANY DRUG USE DURING HIS HOSPITAL STAY. ALL QUESTIONS AND CONCERNS ARE ADDRESSED, CALL LIGHT WITH IN REACH, ANTI-SLIP SOCKS IN USE, 4/4 BED RAILS ARE UP.
--- NOTE | 2023-11-02 23:55 | NUR ---
PT IS RESTING IN BED. IN ROOM RESTING. PT RECIEVED ORAL MEDICATIONS AFTER HEAD CT IS NEGATIVE. PT MORE ALERT AND ORIENTATED THEN PREVIOUS NEURO ASSESSMENT. PT IS ITCHING AND PICKING AT SCABS, PT IS VERY RESTLESS, PT DOES HAVE SPASTIC MOVEMENTS. HE IS ABLE TO VERBALIZE MORE AND ANSWER QUESTIONS MORE ACCURATLY THEN PREVIOUSLY. ALL QUESTIONS AND CONCERNS ARE ADDRESSED AT THIS TIME. CALL LIGHT IS WITH IN REACH, BED IS LOWERED AND LOCKED, 4/4 BEDSIDE RAILS IN USE, PT IS WEARING ANTI-SLIP SOCKS.
[2023-11-03] VITALS (8 sets, daily range): BP systolic 112–132; BP diastolic 64–98
--- NOTE | 2023-11-03 02:05 | NUR ---
PT UP TO THE BATHROOM, PT ABLE TO PERFORM ORAL HYGIENE INDEPENDENTLY. PAIN IMPROVED WITH REPOSITIONING. VS REVIEWED. ALL QUESTIONS AND CONCERNS ADDRESSED AT THIS TIME. CALL LIGHT WITH IN REACH, BED IS LOWERED AND LOCKED, 3/4 BEDSIDE RAILS UP. IS SITTING AT SIDE OF BED WITH PT, THEY APPEAR TO BE HAVING A HEATED ARGUMENT AT THIS TIME.
[2023-11-03 05:32] LABS: BASOPHILS 0.6 % (0-2); EOSINOPHILS 1.2 % (0-6); HEMATOCRIT 36.7 % (35.0-50.0); HEMOGLOBIN 11.4 g/dL (12.0-18.0); LYMPHOCYTES 11.7 % (24-44); MCH 24.8 (27-36); MCHC 31.2 g/dl (30-36); MCV 79.6 fl (81-99); MONOCYTES 10.7 % (0-12); NEUTROPHILS 75.8 % (39-80); PLATELET COUNT 161 K/uL (140-440); RBC 4.61 M/ul (4.3-5.7); RDW 21.8 (10.5-15.0)
[2023-11-03 05:59] LABS: ALBUMIN 2.8 g/dL (3.4-5.0); ALBUMIN/GLOBULIN RATIO 0.8 (1.1-2.4); ANION GAP 10.2 (7-21); BUN/CREATININE RATIO 25.92 (6.0-28.6); CALCIUM 7.9 mg/dL (8.5-10.1); CREATININE, SERUM 1.08 mg/dL (0.70-1.30); POTASSIUM 4.2 mmol/L (3.5-5.1); PROTEIN, TOTAL 6.3 g/dL (6.4-8.2)
--- NOTE | 2023-11-03 07:30 | NUR ---
REPORT RECEIVED. PATIENT HAS MANY REQUESTS/NEEDS. IN ROOM. IVF PATENT. SINGLETARY CATH PATENT.
--- NOTE | 2023-11-03 08:30 | NUR ---
ASSESSMENT DONE. TOOK DIET WELL. SITTING UP IN CHAIR FOR BREAKFAST. MOVING WELL. STABLE ON FEET. DENIES DIZZINESS. ROUTINE MEDICATIONS GIVEN.
--- NOTE | 2023-11-03 08:58 | NUR ---
PATIENT SITTING UP IN CHAIR, ON COUCH. VITALS AND I&OS CHARTED. LINEN CHANGED. IN ROOM, CALL LIGHT IN EASY REACH
--- NOTE | 2023-11-03 09:00 | NUR ---
Spoke with Rashaad and his . Pt plans on dc to home today. He is homeless, [facility] a bed [facility]. Pt [facility] go [facility]. He will need to supervisor opening and picking meds. He is familiar with [facility] and states she has their number in her phone. They can use it for a day center. Pt states he is good about taking meds. I will provide them with 2 taxi tickets so pt can pick his meds up on the way to the [facility]. Pt denies other needs. He states they have applied for low income housing but their are issues with unpaid utilities and legal. Pt denies other needs. Pt states he has been couch surfing to this point.
--- NOTE | 2023-11-03 09:30 | NUR ---
SINGLETARY CATH DC'D. PATIENT THEN STOOD AT BEDSIDE TO VOID A FEW DROPS OF URINE.
--- NOTE | 2023-11-03 09:54 | NUR ---
CCU ROUNDS. 15 MINUTES. PT ANTICIPATING IMMINENT DISCHARGE. DECLINED SPIRITUAL CARE SERVICES. PROVIDED SILENT PRAYER.
--- NOTE | 2023-11-03 09:55 | NUR ---
DR. AYALA HERE TO SEE PATIENT. PLAN TO DISCHARGE LATER TODAY.
[2023-11-03] MEDS ORDERED: METRONIDAZOLE500 MG PO (10:45)
[2023-11-03] MEDS ORDERED: LEVOFLOXACIN750 MG PO (10:47)
--- NOTE | 2023-11-03 12:30 | NUR ---
TOOK LUNCH WELL. UP TO BR TO VOID AND HAVE BM.
--- NOTE | 2023-11-03 12:45 | NUR ---
BACK TO BED. IV ABX CONTINUE TO INFUSE.
--- NOTE | 2023-11-03 13:30 | NUR ---
SL X 2 DC'D WITH CATH INTACT.
--- NOTE | 2023-11-03 14:15 | NUR ---
DISCHARGE INSTRUCTIONS GIVEN WITH PATIENT UNDERSTANDING.
--- NOTE | 2023-11-03 14:15 | NUR ---
DISCHARGED TO HOME.
== END 2023-11-03 14:15 | disposition home or self-care (01) | DRG 871 ==
LOC: ED 23:35 → CCU 23:36
PROVIDERS: Emergency Medicine; ADMIT Family Medicine; ATTEND Family Medicine
DX: A41.9 Sepsis, unspecified organism (principal); J18.9 Pneumonia, unspecified organism; N17.9 Acute kidney failure, unspecified; Z59.00 Homelessness unspecified; K57.32 Diverticulitis of large intestine without perforation or abscess without bleeding; T68.XXXA Hypothermia, initial encounter; E83.42 Hypomagnesemia; E80.6 Other disorders of bilirubin metabolism; E11.649 Type 2 diabetes mellitus with hypoglycemia without coma; K40.90 Unilateral inguinal hernia, without obstruction or gangrene, not specified as recurrent; E87.5 Hyperkalemia; F17.210 Nicotine dependence, cigarettes, uncomplicated; R94.31 Abnormal electrocardiogram [ECG] [EKG]; K21.9 Gastro-esophageal reflux disease without esophagitis; E11.40 Type 2 diabetes mellitus with diabetic neuropathy, unspecified; I11.0 Hypertensive heart disease with heart failure; F15.10 Other stimulant abuse, uncomplicated; I50.9 Heart failure, unspecified; Z90.49 Acquired absence of other specified parts of digestive tract; Z98.890 Other specified postprocedural states; Z79.84 Long term (current) use of oral hypoglycemic drugs; Z79.01 Long term (current) use of anticoagulants; Z79.899 Other long term (current) drug therapy; Z71.6 Tobacco abuse counseling; Z71.51 Drug abuse counseling and surveillance of drug abuser; I25.2 Old myocardial infarction
CPT/HCPCS: 36415; 36600; 51702; 70450; 71045; 74177; 80048; 80053; 80307; 81003; 83605; 83735; 84100; 84484; 85025; 85060; 93005; 93010; 96368; 97162; 97165; 97530; 99285-25; A9270; G0378; G0480; J0692; J1815; J2060; J2405; J3370; J3475; J3490; J7040; J7060; J7121; Q9967

== ENCOUNTER 2023-11-18 08:26 | Inpatient (IN) | payer OTHER ==
[~2023-11-18] VITALS: Ht 182.9 cm; Wt 77.2 kg
[~2023-11-18 08:26] MED LIST changes: +ARIPIPRAZOLE5 MG PO; +ATORVASTATIN CA40 MG PO; +COREG3.125 MG PO; +LEVOFLOXACIN750 MG PO; +SOAANZ20 MG PO; +VALSARTAN40 MG PO
--- OUTSIDE RECORDS SUMMARY | 2023-11-18 08:33 | XMS ---
PreManage Notification: KAYKAY LAWSON Security Travel Money Advisor Events 1 event(s) in the past 18 months Most recent security events: Elopement at [facility] 09/22/2023 09:23 - Patient eloped with IV in place. - Patient eloped before treatment completed. - Patient with suicidal and/or homicidal ideations eloped. Details: Patient left AMA CRITERIA MET - 6 ED Visits in 6 Months - [facility] - 2 Visits in 30 Days CARE PROVIDERS -Zi- Dentist: Media/Instructional Designer [facility] PHONE: [phone] Fly has no Care Guidelines for this patient. [place] VISIT COUNT (12 MO.) 12 [facility] 3 [facility] 2 [facility] ([place] [facility]) 1 [facility] 1 [facility] TOTAL 19 NOTE: Visits indicate total known visits. ED/UCC VISIT TRACKING (12 MO.) 11/18/2023 08:26 [facility] [place] TYPE: Emergency COMPLAINT: - SOB 11/11/2023 23:14 [facility] [place] TYPE: Emergency COMPLAINT: - CHEST PAIN DIAGNOSES: - Heart failure, unspecified - Hypertensive heart disease with heart failure - senior living (current) use of anticoagulants - ad terminal makeup operator (current) use of oral hypoglycemic drugs - Nicotine dependence, unspecified, uncomplicated - Other chest pain - Other termite helper (current) drug therapy - Other stimulant abuse, uncomplicated - Type 2 diabetes mellitus with diabetic neuropathy, unspecified 11/05/2023 19:25 [facility] [place] TYPE: Emergency COMPLAINT: - WEAKNESS/VOMITING 10/31/2023 23:35 [facility] [place] TYPE: Emergency COMPLAINT: - ALTERED LOC 10/01/2023 15:06 [facility] [place] TYPE: Emergency COMPLAINT: - SHORTNESS OF BREATH DIAGNOSES: - Contact with and (suspected) exposure to COVID-19 - Gastro-esophageal reflux disease without esophagitis - Heart failure, unspecified - Hypertensive heart disease with heart failure - ad terminal makeup operator (current) use of oral hypoglycemic drugs - Nicotine dependence, unspecified, uncomplicated - Other care home (current) drug therapy - Shortness of breath - Type 2 diabetes mellitus with diabetic neuropathy, unspecified 09/22/2023 09:23 [facility] [place] TYPE: Emergency COMPLAINT: - SOB, COUGHING BLOOD, WEAKNESS, NO APPETITE DIAGNOSES: - Contact with and (suspected) exposure to COVID-19 - Heart failure, unspecified - Hypertensive heart disease with heart failure - senior living (current) use of anticoagulants - Nicotine dependence, unspecified, uncomplicated - Non-ST elevation (NSTEMI) myocardial infarction - Other termite helper (current) drug therapy - Presence of automatic (implantable) cardiac defibrillator - Procedure and treatment not carried out because of patient's decision for other reasons - Shortness of breath - Type 2 diabetes mellitus with diabetic neuropathy, unspecified 09[facility]18[facility]23 [facility] [facility] TYPE: Emergency DIAGNOSES: - Acute on chronic systolic (congestive) heart failure - Other specified disorders of the male genital organs - Chest Pain - CP, SOB - Shortness of Breath 09/18/2023 10:42 [facility] [place] TYPE: Emergency COMPLAINT: - SOB, INCONTINENCE, PANIC ATTACKS DIAGNOSES: - Cardiogenic shock - Chest pain, unspecified - Encounter for screening for COVID-19 - Heart failure, unspecified - Hypertensive heart disease with heart failure - ad terminal makeup operator (current) use of anticoagulants - Nicotine dependence, unspecified, uncomplicated - Other disorders of lung - Other care home (current) drug therapy - Type 2 diabetes mellitus with diabetic neuropathy, unspecified 07/24/2023 12:37 [facility] [place] TYPE: Emergency COMPLAINT: - GENERAL DIAGNOSES: - GENERAL 07/23/2023 15:59 [facility] [place] TYPE: Emergency COMPLAINT: - TROUBLE BREATHING TROUBLE WALKING DIAGNOSES: - TROUBLE BREATHING TROUBLE WALKING 07/14/2023 15:46 [facility] TYPE: Emergency COMPLAINT: - MEDICAL CLEARANCE DIAGNOSES: - Encounter for general adult medical examination without abnormal findings - MEDICAL CLEARANCE 04/14/2023 00:07 [facility] [place] TYPE: Emergency COMPLAINT: - CHEST PAIN DIAGNOSES: - Chest pain, unspecified - Heart failure, unspecified - Hypertensive heart disease with heart failure - senior living (current) use of anticoagulants - Nicotine dependence, unspecified, uncomplicated - Other termite helper (current) drug therapy - Other stimulant abuse, uncomplicated - Type 2 diabetes mellitus with diabetic chronic kidney disease 03/28/2023 05:37 [facility] [place] TYPE: Emergency COMPLAINT: - CHEST PAIN, SHORTNESS OF BREATH DIAGNOSES: - CHEST PAIN, SHORTNESS OF BREATH 03/22/2023 08:17 [facility] [place] TYPE: Emergency COMPLAINT: - SOB,COUGH DIAGNOSES: - Contact with and (suspected) exposure to COVID-19 - Cough, unspecified - Heart failure, unspecified - Hypertensive heart disease with heart failure - ad terminal makeup operator (current) use of anticoagulants - Nicotine dependence, unspecified, uncomplicated - Other termite helper (current) drug therapy - Type 2 diabetes mellitus without complications 03/18/2023 04:53 [facility] [place] TYPE: Emergency COMPLAINT: - RT HIP PAIN DIAGNOSES: - Alcohol abuse, uncomplicated - Heart failure, unspecified - Homelessness unspecified - Hypertensive heart disease with heart failure - ad terminal makeup operator (current) use of anticoagulants - senior living (current) use of oral hypoglycemic drugs - Nicotine dependence, unspecified, uncomplicated - Other chronic pain - Other care home (current) drug therapy - Other stimulant abuse, uncomplicated - Pain in right hip - Type 2 diabetes mellitus with diabetic neuropathy, unspecified - Unspecified protein-calorie malnutrition - Unspecified viral hepatitis C 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 coma 03/10/2023 07:06 [facility] [place] TYPE: Emergency COMPLAINT: - BODY ACHES DIAGNOSES: - Contact with and (suspected) exposure to COVID- - Encephalopathy, unspecified - Heart failure, unspecified - Homelessness unspecified - Hypertensive heart disease with heart failure - Inflammatory liver disease, unspecified - ad terminal makeup operator (current) use of anticoagulants - ad terminal makeup operator (current) use of oral hypoglycemic drugs - Nicotine dependence, unspecified, uncomplicated - Other termite helper (current) drug therapy - Other psychoactive substance [...] - Nicotine dependence, unspecified, uncomplicated - Other termite helper (current) drug therapy - Other stimulant abuse with intoxication, unspecified - Pneumonia, unspecified organism - Type 2 diabetes mellitus with diabetic neuropathy, unspecified - Unspecified viral hepatitis C 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 coma [facility]19[facility]2022 13:29 [facility] DIAGNOSES: - Heart failure, unspecified - Non-ST elevation (NSTEMI) myocardial infarction - Other pulmonary embolism without acute cor pulmonale - Pneumonia, unspecified organism - Chest Pain - chest pain and sob/ccoughing up blood - Cough INPATIENT VISIT TRACKING (12 MO.) 11/05/2023 19:26 [facility] [place] TYPE: Observation COMPLAINT: - CHF DIAGNOSES: - Acute on chronic diastolic (congestive) heart failure - Nicotine dependence, unspecified, uncomplicated 11/01/2023 10:41 [facility] [place] [facility] COMPLAINT: - ALTERED MENTAL STATUS, HYPOTHERMIA, HYPOGLYCEMIA DIAGNOSES: - Abnormal electrocardiogram [ECG] [EKG] - Abnormal electrocardiogram [ECG] [EKG] - Acquired absence of other specified parts of digestive tract - Acquired absence of other specified parts of digestive tract - Acute kidney failure, unspecified - Acute kidney failure, unspecified - Diverticulitis of large intestine without perforation or abscess without bleeding - Diverticulitis of large intestine without perforation or abscess without bleeding - Drug abuse counseling and surveillance of drug abuser - Drug abuse counseling and surveillance of drug abuser - Gastro-esophageal reflux disease without esophagitis - Gastro-esophageal reflux disease without esophagitis - Heart failure, unspecified - Heart failure, unspecified - Homelessness unspecified - Homelessness unspecified - Hyperkalemia - Hyperkalemia - Hypertensive heart disease with heart failure - Hypertensive heart disease with heart failure - Hypomagnesemia - Hypomagnesemia - Hypothermia, initial encounter - Hypothermia, initial encounter - senior living (current) use of anticoagulants - ad terminal makeup operator (current) use of anticoagulants - senior living (current) use of oral hypoglycemic drugs - ad terminal makeup operator (current) use of oral hypoglycemic drugs - Nicotine dependence, cigarettes, uncomplicated - Nicotine dependence, cigarettes, uncomplicated - Old myocardial infarction - Old myocardial infarction - Other disorders of bilirubin metabolism - Other disorders of bilirubin metabolism - Other termite helper (current) drug therapy - Other care home (current) drug therapy - Other specified postprocedural states - Other specified postprocedural states - Other stimulant abuse, uncomplicated - Other stimulant abuse, uncomplicated - Pneumonia, unspecified organism - Pneumonia, unspecified organism - Sepsis, unspecified organism - Tobacco abuse counseling - Tobacco abuse counseling - Type 2 diabetes mellitus with diabetic neuropathy, unspecified - Type 2 diabetes mellitus with diabetic neuropathy, unspecified - Type 2 diabetes mellitus with hypoglycemia without coma - Type 2 diabetes mellitus with hypoglycemia without coma - Unilateral inguinal hernia, without obstruction or gangrene, not specified as recurrent - Unilateral inguinal hernia, without obstruction or gangrene, not specified as recurrent 09/18/2023 15:04 [facility] [place] [facility]) TYPE: Medical Surgical DIAGNOSES: - Acute on chronic systolic (congestive) heart failure - Cardiomyopathy, unspecified - Chronic pulmonary embolism - Essential (primary) hypertension - Other specified disorders of the male genital organs - Other stimulant abuse, uncomplicated - Type 2 diabetes mellitus with hyperglycemia 07/24/2023 23:40 [facility] TYPE: Cardiology DIAGNOSES: 18065. Cardiac arrest, cause unspecified 99093. Post Code 13071. Cardiomyopathy due to drug and external agent 07/24/2023 12:37 [facility] [place] TYPE: Medical Surgical DIAGNOSES: - Acute systolic (congestive) heart failure - Heart failure, unspecified 03/28/2023 05:37 [facility] [place] TYPE: Medical Surgical DIAGNOSES: - Heart failure, unspecified 03/10/2023 19:52 [facility] [place] TYPE: [facility] DIAGNOSES: 56271. Acute and subacute hepatic failure without coma 36472. acute hepatitis with encephalopathy, request for liver transplant eval [id number]. Acute and subacute hepatic failure without coma 37291. Housing instability, housed unspecified [id number]. ad terminal makeup operator (current) use of insulin 16975. Type 2 diabetes mellitus without complications 01/04/2023 11:36 [facility] TYPE: Internal Medicine DIAGNOSES: - Acute on chronic systolic (congestive) heart failure - Cardiac arrest, cause unspecified - Encounter for palliative care - Intracardiac thrombosis, not elsewhere classified - Other malaise - Other specified counseling - Other stimulant abuse, uncomplicated - PEA cardiac arrest 12/19/2022 13:29 [facility] ([place] [facility] TYPE: Intensive Care DIAGNOSES: - Acute on chronic systolic (congestive) heart failure - Bacteremia - Heart failure, unspecified - Hemoptysis - Non-ST elevation (NSTEMI) myocardial infarction - Other pulmonary embolism without acute cor pulmonale - Other stimulant abuse, uncomplicated - Pneumonia, unspecified organism - Type 2 diabetes mellitus with hyperglycemia - Unspecified systolic (congestive) heart failure [email or web address]
[2023-11-18 08:44] LABS: BASOPHILS 0.7 % (0-2); EOSINOPHILS 1.4 % (0-6); HEMATOCRIT 35.7 % (35.0-50.0); HEMOGLOBIN 11.1 g/dL (12.0-18.0); MCH 25.2 (27-36); MCHC 31.1 g/dl (30-36); MCV 80.8 fl (81-99); MONOCYTES 12.3 % (0-12); NEUTROPHILS 72.6 % (39-80); PLATELET COUNT 296 K/uL (140-440); RBC 4.42 M/ul (4.3-5.7); RDW 23.7 (10.5-15.0)
[2023-11-18 09:04] LABS: ALCOHOL, MEDICAL <3 ng/dL (<3); ALKALINE PHOSPHATASE 116 U/L (46-116); ALT (SGPT) 34 U/L (14-59); ANION GAP 9.2 (7-21); AST (SGOT) 44 U/L (15-37); BILIRUBIN, TOTAL 1.3 ng/dL (0.2-1.0); BUN/CREATININE RATIO 19.23 (6.0-28.6); CALCIUM 8.2 mg/dL (8.5-10.1); CARBON DIOXIDE 36 mmol/L (21-32); CHLORIDE 98 mmol/L (98-107); GLOMERULAR FILTRATION RATE,EST 66 mL/min (>60); MAGNESIUM 1.5 mg/dL (1.8-2.4); POTASSIUM 3.2 mmol/L (3.5-5.1); PROTEIN, TOTAL 7.3 g/dL (6.4-8.2); UREA NITROGEN 25 mg/dL (7-18)
[2023-11-18 10:02] LABS: INFLUENZA B NAA NEGATIVE (NEGATIVE); RESPIRATORY SYNCYTIAL VIR NAA NEGATIVE (NEGATIVE)
[2023-11-18 11:50] LABS: AMPHETAMINES, URINE POSITIVE (NEGATIVE); BARBITURATES, URINE NEGATIVE (NEGATIVE); BENZODIAZEPINE, URINE POSITIVE (NEGATIVE); BUPRENORPHINE, URINE NEGATIVE (NEGATIVE); CANNABINOID, URINE NEGATIVE (NEGATIVE); COCAINE, URINE NEGATIVE (NEGATIVE); ECSTASY, URINE NEGATIVE (NEGATIVE); FENTANYL, URINE NEGATIVE (NEGATIVE); METHADONE, URINE NEGATIVE (NEGATIVE); OPIATES, URINE NEGATIVE (NEGATIVE); OXYCODONE, URINE NEGATIVE (NEGATIVE); PHENCYCLIDINE, URINE NEGATIVE (NEGATIVE)
[2023-11-18 12:13] VITALS: BP 84/65
--- NOTE | 2023-11-18 13:45 | NUR ---
1148- VERBAL REPORT RECEIVED FROM JOHNY GREER IN THER. 1158- PT ARRIVES TO [facility] VIA GURNEY, ESCORTED BY THIS RN TO ROOM 110. PT STANDS AND AMBULATES TO [facility] BED WITH SBA. PT REQUEST TO USE BATHROOM, AMBULATES WITH SBA TO BATHROOM VOIDS 400 MLS OF CLEAR YELLOW URINE. ADMISSION COMPELTE. PT URINATES FREQUENTLY, REPORTS PAIN WITH URINATION RELATED TO SCROTAL EDEMA. PT REPORTS AMBULATION PAINFUL DUE TO BLE SWELLING. PT REQUESTS SINGLETARY OFFERED BY MD PREVIOUSLY. TELEY #[phone] APPLIED. PT HYPOTENSIVE UPON ARRIVAL, ASYMPTOMATIC.
--- NOTE | 2023-11-18 14:05 | NUR ---
SINGLETARY CATHETER INSERTED VIA STERILE TECHNIQUE, 16 FR. URINE RETURN NOTED. CATHETER BALLOON FILLED WITH 10CC OF NS AND SEEDED. SINGLETARY DRAINS CLEAR YELLOW URINE INTO GRAVITY BAG. CATHETER SECURED TO RIGHT LEG. PT TOLERATED FAIR.
[2023-11-18 14:10] VITALS: BP 109/89
--- NOTE | 2023-11-18 14:33 | NUR ---
PT COMPLAINS OF BEING "JITTERY." STATES HE TOOK [facility] THIS MORNING AND HE NEEDS SOMETHING. DR. AYALA NOTIFIED, STATES HE WILL ORDER SOMETHING. PT INFORMED AND COMFORTED. PT STOPS YELLING AND CALMS DOWN. ROOM DARKENED AND QUIET PER PT REQUEST. CALL LIGHT IN REACH.
--- NOTE | 2023-11-18 14:53 | NUR ---
PER LONG TERMJOHNY TUTTLE PATIENT IS CURRENTLY DETOXING FROM [facility] AND IT IS DIFFICULT TO SPEAK WITH HIM. WILL DEFER ASSESSMENT TO TOMORROW.
[2023-11-18 17:41] VITALS: BP 118/91
--- NOTE | 2023-11-18 19:25 | NUR ---
Patient resting in bed, yells out infrequently, no noted distress, report provided by day shift RN, patient lights are out and call light within reach.
[2023-11-18 20:48] VITALS: BP 116/83
--- NOTE | 2023-11-18 20:56 | NUR ---
PATIENT VITALS AND I/OS CHARTED, ROOM TIDIED, TRASH CANS EMPTIED, FRESH ICE WATER PROVIDED, CALL LIGHT LEFT WITHIN REACH. RN NOTIFIED OF REQUEST FOR PUDDINGS AND JELL-O. NO OTHER NEEDS AT THIS TIME.
--- NOTE | 2023-11-18 21:00 | NUR ---
Patient awake, cooperative, VSS except HR in 120's, report BP and HR to MD and okay to give lasix dose IV and MD added a dose of Albumin. Patient is alert and oreinted, no noted tremors, states that he is feeling better, except occasional hallucinations but he states he knows the difference and there not a problem. On his cell phone trying to call his without success. Requested and given coffee and sugar free pudding. Patient with generalized edema 3-4+. Blood sugar 163 and 1 unit insulin per SS given. Tele remains on and intact.
--- NOTE | 2023-11-18 22:19 | NUR ---
Albumin infusing and patient given tylenol for generalized aches and pain. lights are out and call light within reach.
--- NOTE | 2023-11-18 22:40 | NUR ---
IV ALARMING; SL. WATCHING TV NO OTHER NEEDS AT THIS TIME.
--- NOTE | 2023-11-18 22:50 | NUR ---
Patient knocked over coffee, gown and bed linen changed, patient assisted up to side of bed. tolerated fair, increased discomfort and not steady on his feet. Is now back to bed, albumin infusing complete and line flushed, lights out and patients call light within reach.
--- NOTE | 2023-11-19 00:01 | NUR ---
Patient resting in bed with lights off, appears a sleep. Patients here with two large containers of belongings. Accompanied by another person who then left and patients stayed and is now sleeping in recliner.
--- NOTE | 2023-11-19 00:55 | NUR ---
Patient remains a sleep, moaning off and on. no distress noted, IV intact, doyle intact and secured below level of bed with adequate urine output. still sleeping in recliner. lights are out and call light within reach.
[2023-11-19 01:03] VITALS: BP 123/79
--- NOTE | 2023-11-19 01:26 | NUR ---
Pt called requesting food and coffee. Sugar free pudding and decaf coffee provided. Vitals and I&Os completed. Pt resting in bed. Call light in reach. Pt. denies further needs at this time.
--- NOTE | 2023-11-19 03:18 | NUR ---
Patient sleeping on and off. Coughing occasionally and light moan. lights are out, remains at bedside, call light within reach.
[2023-11-19 05:14] VITALS: BP 113/81
[2023-11-19 05:27] LABS: EOSINOPHILS 0.9 % (0-6); HEMATOCRIT 33.3 % (35.0-50.0); HEMOGLOBIN 10.6 g/dL (12.0-18.0); LYMPHOCYTES 13.7 % (24-44); MCH 25.2 (27-36); MCHC 31.7 g/dl (30-36); MCV 79.6 fl (81-99); MONOCYTES 11.7 % (0-12); NEUTROPHILS 72.7 % (39-80); PLATELET COUNT 269 K/uL (140-440); RBC 4.18 M/ul (4.3-5.7); RDW 23.9 (10.5-15.0)
--- NOTE | 2023-11-19 05:41 | NUR ---
Patient has slepted on and off during the night. has a hacky dry cough which patient states is from smoking, VSS, Given a dose of Albumin IV and Lasix IV last evening with total urine output this shift 3750ml. Patient feeling like swelling is going down some, Up with assist once during the night and patient tolerated poorly, Stood at bedside with assist of 1 person, bablance unsteady, shuffled towo steps. CIWA score through the night 7. Patient has been calm and cooperative this shift. has been sleeping at bedside. No noted resp distress. Lights are off at this time and call light is within reach.
[2023-11-19 05:44] LABS: ALBUMIN 2.8 g/dL (3.4-5.0); ALBUMIN/GLOBULIN RATIO 0.72 (1.1-2.4); ANION GAP 8.8 (7-21); BILIRUBIN, TOTAL 1.5 ng/dL (0.2-1.0); BUN/CREATININE RATIO 22.68 (6.0-28.6); CALCIUM 8.3 mg/dL (8.5-10.1); CREATININE, SERUM 1.19 mg/dL (0.70-1.30); MAGNESIUM 1.5 mg/dL (1.8-2.4); PHOSPHORUS, INORGANIC 2.8 mg/dL (2.5-4.9); POTASSIUM 3.8 mmol/L (3.5-5.1); PROTEIN, TOTAL 6.7 g/dL (6.4-8.2)
--- NOTE | 2023-11-19 08:30 | NUR ---
RN IN ROOM, ASSESSMENT COMPLETE - PT RESTING IN BED EATING BREAKFAST, DENIES COMPLAINTS AT THIS TIME. LUNG SOUNDS NOTED TO BE COURSE CRACKLES. EDEMA IMPROVING PER REPORT FROM PREVIOUS SHIFT. SINGLETARY CATH PATENT AND DRAINING PALE YELLOW URINE. SINUS TACH ON TELE #9 - RATES IN 120'S WITH REST. ASLEEP IN CHAIR.
[2023-11-19 10:25] VITALS: BP 113/80
--- NOTE | 2023-11-19 10:47 | NUR ---
PT RESTING IN BED WORKING WITH PHYSICAL THERAPY.
--- NOTE | 2023-11-19 11:40 | NUR ---
PATIENT ALERT AND ORIENTED, SITTING UP IN CHAIR. IN ROOM WELL. STATES HE REMAINS HOMELESS. WAS STAYING AT THE [facility] BUT WAS NOT ALLOWED TO RETURN DUE TO BEING LATE FOR CURFEW. REMAINS UNABLE TO AFFORD NEEDED MEDICATIONS. AWARE OF ALL RESOURCES IN TOWN. MULTIPLE DISCUSSIONS WITH PATIENT PREVIOUSLY REGARDING RESOURCES. STATES THEY ARE IN TOUCH WITH A WORKER AT [employer] TO TRY TO GET MORE ASSISTANCE. PAMPHLET FOR RESOURCES PROVIDED WELL. PATIENT AND UNSURE OF ANY OTHER NEEDS AT THIS TIME.
--- NOTE | 2023-11-19 12:45 | NUR ---
PT USES CALL LIGHT TO STATE HE IS HAVING CRAMPS IN BOTH ARMS AND HANDS - WITNESSED BY RN. DR. VALDES UPDATED - VERBAL ORDER RECEIVED FOR BMP.
--- NOTE | 2023-11-19 12:53 | NUR ---
PT BACK TO BED FROM CHAIR AFTER LUNCH. INCREASED STRENGTH STANDING AND ABLE TO TRANSFER TO BED STANDBY ASSIST. REMAINS PAINFUL IN LOWER LEGS AND SCROTUM. LEGS ELVATED IN BED. DAILY WEIGHT OBTAINED - ALMOST 5LB LOSS. SINUS TACH RATE 115 ON TELE. LOTION PROVIDED FOR HANDS. CLEAN BED LINENS AND GOWN.
[2023-11-19 13:45] LABS: ANION GAP 7.2 (7-21); BUN/CREATININE RATIO 24.1 (6.0-28.6); CALCIUM 8.4 mg/dL (8.5-10.1); CREATININE, SERUM 1.12 mg/dL (0.70-1.30); POTASSIUM 3.2 mmol/L (3.5-5.1)
--- NOTE | 2023-11-19 13:57 | NUR ---
UR NOTE [facility]CG HEART FAILURE (ISC) 11/18/23 MET CLINICAL INDICATIONS FOR ADMISSION TO INPATIENT CARE GL DAY 1
[2023-11-19 14:20] VITALS: BP 108/73
--- NOTE | 2023-11-19 14:20 | NUR ---
RN ROUNDING ON PT - RESTING IN BED WITH ECHO COMPLETED. ALL BELONGINGS IN REACH. KITCHEN CALLED FOR CEREAL FOR SNACK.
--- NOTE | 2023-11-19 14:23 | EKG ---
[facility] [address] [place] [address] Signed Sinus tachycardia Left axis deviation Low voltage QRS T wave abnormality, consider lateral ischemia Abnormal ECG When compared with ECG of 11-NOV-2023 23:19, Nonspecific T wave abnormality now evident in Inferior leads T wave inversion now evident in Lateral leads Confirmed by TREVOR VALDES MD ([id number]) on 11/19/2023 2:23:04 PM Electronically Signed By: TREVOR VALDES 11/19/23 1423 PATIENT NAME: KAYKAY LAWSON OMAR Electrocardiogram DATE OF : 72 PHYSICIAN: TREVOR VALDES REPORT #: [id number] REPORT IS CONFIDENTIAL AND NOT TO BE RELEASED WITHOUT AUTHORIZATION
--- NOTE | 2023-11-19 15:08 | NUR ---
CALL PLACED TO MD TO NOTIFY OF RESULT FROM STAT BMP - TELEPHONE ORDER RECEIVED FOR MAG AND POTASSIUM REPLACMENT - ENTERED.
[2023-11-19 18:40] VITALS: BP 112/81
[2023-11-19 21:34] VITALS: BP 103/77
--- NOTE | 2023-11-19 21:39 | NUR ---
Patient c/o discomfort and heartburn. Medicated with tylenol for pain and given TUMs for heartburn, patient stating he shouldn't have had the red sauce at dinner. VSS, lungs with fine crackles, patient denies SOB or CP, Tele intact and patient remains Sinus Tach. edema is decreasing and patient feels like it is too. doyle intact and secured below level of bed. Patient watching TV at this time, call light within reach.
--- NOTE | 2023-11-19 23:07 | NUR ---
Patients BS was 163 and 1 unit insulin given per SS. Patient given HS snack per request, Is now resting in bed with eyes closed, appears comfortable, lights are out and call light is in reach.
--- NOTE | 2023-11-20 01:20 | NUR ---
Patient up standing at bedside earlier, gait steady states he just stretching, diuresising large amounts of urine, swelling to lower extremeties has decreased significantly in past few days and patient feeling better. Less pain with activity. Is now back to bed resting with lights out and call light within reach.
--- NOTE | 2023-11-20 02:32 | NUR ---
Patient awake and requested and given milk, VSS, no compliants, no noted distress, lights out, call light within reach,
[2023-11-20 02:33] VITALS: BP 112/85
--- NOTE | 2023-11-20 04:31 | NUR ---
Patient resting with eyes closed, appears comfortable, call light within reach.
[2023-11-20 06:36] VITALS: BP 112/73
--- NOTE | 2023-11-20 06:46 | NUR ---
Patient awake, minimal complaints, at bedside, Up ambulated in room with SBA to do am weight, tolerated well. Watching TV now , VSS.
--- NOTE | 2023-11-20 08:42 | NUR ---
Patient sitting up in bed eating breakfast, no acute distress. Patient denies shortness of breath/pain. Patient reports anxiety-ativan 1mg IV admin at this time. Notable abrasions throughout patient's body. Legs and feet are red and edematous. Patient's at bedside. Call light withiin reach of pt.
[2023-11-20 09:26] VITALS: BP 128/59
--- NOTE | 2023-11-20 10:04 | NUR ---
CATHETER REMOVED, PT TOLERATED WELL. PT ABLE TO VOID 150ML AFTER SINGLETARY REMOVAL.
--- NOTE | 2023-11-20 10:06 | NUR ---
PATIENT ADMITTED AT HIGH RISK FOR MALNUTRITION. HE HAS DIABETES, IS EXPERIENCING HOMELESSNESS, IS NON-COMPLIANT WITH MEDS AND CHF CARE, AND USES METH. HE IS ON A 60 GM CONS CARB DIET HERE, BUT DOES NOT HAVE A SODIUM RESTRICTION. WILL MESSAGE MD TO ASK IF 2 GRAM SODIUM CAN BE ADDED TO DIET ORDER. HE HAS HAD WEIGHT LOSS DUE TO WATER WEIGHT LOSS FROM LASIX. PATIENT'S APPETITE IS GOOD, EATING 100% THE PAST 2 DAYS. WILL CONTINUE TO MONITOR.
--- NOTE | 2023-11-20 10:30 | NUR ---
ROUNDS. PT AND DEALING WITH HOMELESSNESS. EXPRESSED CONCERN THAT HOMELESS SITUATION WOULD EXACERBATE PT CONDITION. PT HAS HOMELESS RESOURCE INFORMATION PACKET IN ROOM. LISTENED EMPATHATICALLY; PROVIDED SUPPORTIVE PRESENCE; PROVIDED PRAYER.
[2023-11-20] MEDS ORDERED: METOLAZONE2.5 MG PO (11:53)
[2023-11-20] MEDS ORDERED: LASIX40 MG PO (11:59)
[2023-11-20] MEDS ORDERED: K-TAB ER20 MEQ PO (12:37)
[2023-11-26] MEDS ORDERED: TORSEMIDE20 MG PO (19:36)
[2023-11-27] MEDS ORDERED: METOLAZONE2.5 MG PO (11:13)
[2023-11-27] MEDS ORDERED: POTASSIUM CHLO20 ME1 PO (11:14)
== END 2023-11-20 13:15 | disposition home or self-care (01) | DRG 292 ==
LOC: ED 08:26 → MS 11:29
PROVIDERS: Emergency Medicine; Internal Medicine; ADMIT Family Medicine; ATTEND Family Medicine
DX: I11.0 Hypertensive heart disease with heart failure (principal); Z59.00 Homelessness unspecified; I50.9 Heart failure, unspecified; E87.6 Hypokalemia; F15.10 Other stimulant abuse, uncomplicated; E83.42 Hypomagnesemia; K46.9 Unspecified abdominal hernia without obstruction or gangrene; F17.210 Nicotine dependence, cigarettes, uncomplicated; B19.20 Unspecified viral hepatitis C 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 coma; K21.9 Gastro-esophageal reflux disease without esophagitis; E11.40 Type 2 diabetes mellitus with diabetic neuropathy, unspecified; Z90.49 Acquired absence of other specified parts of digestive tract; Z98.890 Other specified postprocedural states; Z91.148 Patient's other noncompliance with medication regimen for other reason; Z79.899 Other long term (current) drug therapy; Z79.2 Long term (current) use of antibiotics; Z79.84 Long term (current) use of oral hypoglycemic drugs; Z79.01 Long term (current) use of anticoagulants; Z79.51 Long term (current) use of inhaled steroids; Z11.52 Encounter for screening for COVID-19
CPT/HCPCS: 36415; 71045; 80048; 80053; 80307; 83735; 83880; 84100; 84484; 85025; 85060; 87502; 93306; 96374; 97161; 99285-25; A9270; C9803; G0480; J1650; J1815; J1940; J2060; J3475; P9047; U0002

== ENCOUNTER 2023-11-22 08:30 | Emergency (ER) | payer OTHER ==
[~2023-11-22] VITALS: Ht 182.9 cm; Wt 75.3 kg
--- NOTE | ~2023-11-22 | EKG ---
[facility] [address] [place], [place] [address] Draft EK completed, results pending confirmation PATIENT NAME: KAYKAY LAWSON OMAR Electrocardiogram DATE OF : 72 PHYSICIAN: PRELIMINARY REPORT #: [id number] REPORT IS CONFIDENTIAL AND NOT TO BE RELEASED WITHOUT AUTHORIZATION
[~2023-11-22 08:30] MED LIST changes: +K-TAB ER20 MEQ PO; +LASIX40 MG PO; +METOLAZONE2.5 MG PO
--- OUTSIDE RECORDS SUMMARY | 2023-11-22 08:36 | XMS ---
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 - Patient eloped before treatment completed. - Patient with suicidal and/or homicidal ideations eloped. Details: Patient left AMA CRITERIA MET - 6 ED Visits in 6 Months - [facility] - 2 Visits in 30 Days CARE PROVIDERS -Zi- Dentist: Project Officer [facility] PHONE: [phone] Fly has no Care Guidelines for this patient. Lenore VISIT COUNT (12 MO.) 13 [facility] 3 [facility] [address] [facility] ([place]) 1 [facility] 1 [facility] TOTAL 20 NOTE: Visits indicate total known visits. ED/UCC VISIT TRACKING (12 MO.) 11/22/2023 08:30 [facility] [place] TYPE: Emergency COMPLAINT: - DIFFICULT BREATHING 11/18/2023 08:26 [facility] [place] TYPE: Emergency COMPLAINT: - SOB 11/11/2023 23:14 [facility] [place] TYPE: Emergency COMPLAINT: - CHEST PAIN DIAGNOSES: - Heart failure, unspecified - Hypertensive heart disease with heart failure - terminal gauger (current) use of anticoagulants - custodial (current) use of oral hypoglycemic drugs - Nicotine dependence, unspecified, uncomplicated - Other chest pain - Other senior living (current) drug therapy - Other stimulant abuse, [...] Hypertensive heart disease with heart failure - custodial (current) use of oral hypoglycemic drugs - Nicotine dependence, unspecified, uncomplicated - Other senior living (current) drug therapy - Shortness of breath [...] Non-ST elevation (NSTEMI) myocardial infarction - Other senior living (current) drug therapy - Presence of automatic (implantable) cardiac defibrillator - Procedure and treatment not carried out because of patient's decision for other reasons - Shortness of breath - Type 2 diabetes mellitus with diabetic neuropathy, unspecified 09/18/2023 15:04 [facility] ([place]) TYPE: Emergency DIAGNOSES: - [...] Hypertensive heart disease with heart failure - custodial (current) use of anticoagulants - Nicotine dependence, unspecified, uncomplicated - Other disorders of lung - Other senior living (current) drug therapy - Type 2 diabetes mellitus with diabetic neuropathy, unspecified 07/24/2023 12:37 [facility] [place] TYPE: Emergency COMPLAINT: - GENERAL DIAGNOSES: - GENERAL 07/23/2023 15:59 [facility] [place] TYPE: Emergency COMPLAINT: - TROUBLE BREATHING TROUBLE WALKING DIAGNOSES: - TROUBLE BREATHING TROUBLE WALKING 07/14/2023 15:46 [facility] [place] [facility] TYPE: Emergency COMPLAINT: - MEDICAL CLEARANCE DIAGNOSES: - Encounter for general adult medical examination without abnormal findings - MEDICAL CLEARANCE 04/14/2023 00:07 [facility] [place] TYPE: Emergency COMPLAINT: - CHEST PAIN DIAGNOSES: - Chest pain, unspecified - Heart failure, unspecified - Hypertensive heart disease with heart failure - terminal gauger (current) use of anticoagulants - Nicotine dependence, unspecified, uncomplicated - Other adjunct faculty for medical terminology (current) drug therapy - Other stimulant abuse, uncomplicated - Type 2 diabetes mellitus with diabetic chronic kidney disease 03/28/2023 05:37 [facility] [place] TYPE: Emergency COMPLAINT: - CHEST PAIN, SHORTNESS OF BREATH DIAGNOSES: - CHEST PAIN, SHORTNESS OF BREATH 03/22/2023 08:17 [facility] [place] TYPE: Emergency COMPLAINT: - SOB,COUGH DIAGNOSES: - Contact with and (suspected) exposure to COVID-19 - Cough, unspecified - Heart failure, unspecified - Hypertensive heart disease with heart failure - terminal gauger (current) use of anticoagulants - Nicotine dependence, unspecified, uncomplicated - Other adjunct faculty for medical terminology (current) drug therapy - Type 2 diabetes mellitus without complications 03/18/2023 04:53 [facility] [place] TYPE: Emergency COMPLAINT: - RT HIP PAIN DIAGNOSES: - Alcohol abuse, uncomplicated - Heart failure, unspecified - Homelessness unspecified - Hypertensive heart disease with heart failure - terminal gauger (current) use of anticoagulants - custodial (current) use of oral hypoglycemic drugs - Nicotine dependence, unspecified, uncomplicated - Other chronic pain - Other senior living (current) drug therapy - Other stimulant abuse, [...] failure - Inflammatory liver disease, unspecified - custodial (current) use of anticoagulants - terminal gauger (current) use of oral hypoglycemic drugs - Nicotine dependence, unspecified, uncomplicated - Other adjunct faculty for medical terminology (current) drug therapy - Other psychoactive substance abuse, uncomplicated - Type 2 diabetes mellitus without complications - Unspecified abdominal pain 01/13/2023 14:59 [facility] TYPE: Emergency DIAGNOSES: - Acute [...] - Nicotine dependence, unspecified, uncomplicated - Other senior living (current) drug therapy - Other stimulant abuse with intoxication, unspecified - Pneumonia, unspecified organism - Type 2 diabetes mellitus with diabetic neuropathy, unspecified - Unspecified viral hepatitis C 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 coma 12/19/2022 13:29 [facility] ([place]) TYPE: Emergency DIAGNOSES: - Heart failure, unspecified - Non-ST elevation (NSTEMI) myocardial infarction - Other pulmonary embolism without acute cor pulmonale - Pneumonia, unspecified organism - Chest Pain - chest pain and sob/ccoughing up blood - Cough INPATIENT VISIT TRACKING (12 MO.) 11/18/2023 11:29 [facility] [place] TYPE: Medical Surgical COMPLAINT: - CHF EXACERBATION DIAGNOSES: - Heart failure, unspecified - Hypokalemia - Type 2 diabetes mellitus without complications 11/05/2023 19:26 [facility] [place] TYPE: Observation COMPLAINT: - CHF DIAGNOSES: - Acute on chronic diastolic (congestive) heart failure - Nicotine dependence, unspecified, uncomplicated 11/01/2023 10:41 [facility] [place] TYPE: Critical Care COMPLAINT: - ALTERED [...] initial encounter - Hypothermia, initial encounter - terminal gauger (current) use of anticoagulants - custodial (current) use of anticoagulants - terminal gauger (current) use of oral hypoglycemic drugs - custodial (current) use of oral hypoglycemic drugs - Nicotine dependence, cigarettes, uncomplicated - Nicotine dependence, cigarettes, uncomplicated - Old myocardial infarction - Old myocardial infarction - Other disorders of bilirubin metabolism - Other disorders of bilirubin metabolism - Other senior living (current) drug therapy - Other senior living (current) drug therapy - Other specified postprocedural [...] gangrene, not specified as recurrent 09/18/2023 15:04 [facility] [place] [facility] ([place]) TYPE: Medical Surgical DIAGNOSES: - Acute on chronic systolic (congestive) heart failure - Cardiomyopathy, unspecified - Chronic pulmonary embolism - Essential (primary) hypertension - Other specified disorders of the male genital organs - Other stimulant abuse, uncomplicated - Type 2 diabetes mellitus with hyperglycemia 07/24/2023 23:40 [facility] TYPE: Cardiology DIAGNOSES: [id number]. Cardiac arrest, cause unspecified [id number]. Post Code [address]. Cardiomyopathy due to drug and external agent 07/24/2023 12:37 [facility] [place] TYPE: Medical Surgical DIAGNOSES: - Acute systolic (congestive) heart failure - Heart failure, unspecified 03/28/2023 05:37 [facility] [place] TYPE: Medical Surgical DIAGNOSES: - Heart failure, unspecified 03/10/2023 19:52 [facility] [place] TYPE: Family Practice DIAGNOSES: [id number]. Acute and subacute hepatic failure without coma [id number]. acute hepatitis with encephalopathy, request for liver transplant eval [id number]. Acute and subacute hepatic failure without coma 07770. Housing instability, housed unspecified [id number]. terminal gauger (current) use of insulin 15905. Type 2 diabetes mellitus without complications 01/04/2023 11:36 [facility] TYPE: Internal Medicine DIAGNOSES: - Acute on chronic systolic (congestive) heart failure - Cardiac arrest, cause unspecified - Encounter for palliative care - Intracardiac thrombosis, not elsewhere classified - Other malaise - Other specified counseling - Other stimulant abuse, uncomplicated - PEA cardiac arrest 12/19/2022 13:29 [facility] [place]: Intensive Care DIAGNOSES: - Acute on chronic systolic (congestive) heart failure - Bacteremia - Heart failure, unspecified - Hemoptysis - Non-ST elevation (NSTEMI) myocardial infarction - Other pulmonary embolism without acute cor pulmonale - Other stimulant abuse, uncomplicated - Pneumonia, unspecified organism - Type 2 diabetes mellitus with hyperglycemia - Unspecified systolic (congestive) heart failure [email or web address]
[2023-11-22 08:54] LABS: HEMATOCRIT 37.8 % (35.0-50.0); HEMOGLOBIN 11.8 g/dL (12.0-18.0); MCH 25.1 (27-36); MCHC 31.3 g/dl (30-36); MCV 80.1 fl (81-99); PLATELET COUNT 376 K/uL (140-440); RBC 4.72 M/ul (4.3-5.7)
[2023-11-22 09:15] LABS: ALBUMIN 3.4 g/dL (3.4-5.0); ALBUMIN/GLOBULIN RATIO 0.74 (1.1-2.4); ANION GAP 8.7 (7-21); BUN/CREATININE RATIO 25.71 (6.0-28.6); CALCIUM 9.1 mg/dL (8.5-10.1); CREATININE, SERUM 1.05 mg/dL (0.70-1.30); POTASSIUM 3.7 mmol/L (3.5-5.1)
[2023-11-22 09:20] LABS: BANDS, MANUAL DIFF 4; BASOPHILS, MANUAL DIFF 1; LYMPHOCYTES, MANUAL DIFF 7; MONOCYTES, MANUAL DIFF 10; NEUTROPHILS, MANUAL DIFF 78
[2023-11-22 10:45] VITALS: BP 129/97
--- NOTE | 2023-11-22 15:25 | EKG ---
[facility] [address] [place] [address] Signed Sinus tachycardia Possible Left atrial enlargement Left axis deviation Minimal voltage criteria for LVH, may be normal variant ( Chidi product ) Inferior infarct (cited on or before 22-NOV-2023) Abnormal ECG When compared with ECG of 22-NOV-2023 09:07, (Unconfirmed) No significant change was found Confirmed by TREVOR VALDES MD ([id number]) on 11/22/2023 3:25:14 PM Electronically Signed By: TREVOR VALDES 11/22/23 1525 PATIENT NAME: KAYKAY LAWSON Electrocardiogram DATE OF : 72 PHYSICIAN: TREVOR VALDES REPORT #: [id number] REPORT IS CONFIDENTIAL AND NOT TO BE RELEASED WITHOUT AUTHORIZATION
[2023-11-26] MEDS ORDERED: TORSEMIDE20 MG PO (19:36)
== END 2023-11-22 10:40 | disposition home or self-care (01) ==
LOC: ED 08:30
PROVIDERS: Emergency Medicine
DX: F15.20 Other stimulant dependence, uncomplicated (principal); I11.0 Hypertensive heart disease with heart failure; I50.9 Heart failure, unspecified; I48.91 Unspecified atrial fibrillation; E11.40 Type 2 diabetes mellitus with diabetic neuropathy, unspecified; F17.200 Nicotine dependence, unspecified, uncomplicated; Z79.84 Long term (current) use of oral hypoglycemic drugs; Z79.01 Long term (current) use of anticoagulants; Z79.899 Other long term (current) drug therapy
CPT/HCPCS: 36415; 71045; 80053; 83735; 83880; 84484; 85025; 93005; 93010; 96365; 99285-25; J3475

== ENCOUNTER 2023-11-26 18:02 | Inpatient (IN) | payer OTHER ==
[~2023-11-26] VITALS: Ht 182.9 cm; Wt 66.8 kg
--- NOTE | 2023-11-26 00:16 | NUR ---
[facility], BROUGHT TO FLOOR BY ED RN TANIA. pt TRANSFERED TO BED WITH HELP FROM HOSPITAL STAFF VIA SLIDE TRANSFER. CENTRAL LINE DRESSING C.D.I. IV ISTE WNL, SALINE LOCKED. VSS, TELE IN PLACE. CALL LIGHT IN REACH, PRIMARY RN RYAN IN ROOM TO COMPLETE ADMISSION.
--- OUTSIDE RECORDS SUMMARY | 2023-11-26 18:11 | XMS ---
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 - Patient eloped before treatment completed. - Patient with suicidal and/or homicidal ideations eloped. Details: Patient left AMA CRITERIA MET - 6 ED Visits in 6 Months - [facility] - 2 Visits in 30 Days CARE PROVIDERS -Zi- Dentist: Nailer Operator [facility] PHONE: [phone] [facility]/Center: [facility] Current \F\ [facility] PHONE: [phone] Fly has no Care Guidelines for this patient. E.D. VISIT COUNT (12 MO.) 14 VANNA Almaguer 3 [facility] 2 [facility] ([place] 1 [facility] [address] [facility] TOTAL 21 NOTE: Visits indicate total known visits. ED/UCC VISIT TRACKING (12 MO.) 11/26/2023 18:03 [facility] [place] TYPE: Emergency COMPLAINT: - RT FOOT SWELLING 11/22/2023 08:30 [facility] [place] TYPE: Emergency COMPLAINT: - DIFFICULT BREATHING DIAGNOSES: - Heart failure, unspecified - Hypertensive heart disease with heart failure - half-way (current) use of anticoagulants - watermelon harvesting supervisor (current) use of oral hypoglycemic drugs - Nicotine dependence, unspecified, uncomplicated - Other nursing home (current) drug therapy - Other stimulant dependence, uncomplicated - Shortness of breath - Type 2 diabetes mellitus with diabetic neuropathy, unspecified - Unspecified atrial fibrillation 11/18/2023 08:26 [facility] [place] TYPE: Emergency COMPLAINT: - SOB 11/11/2023 23:14 [facility] [place] TYPE: Emergency COMPLAINT: - CHEST PAIN DIAGNOSES: - Heart failure, unspecified - Hypertensive heart disease with heart failure - half-way (current) use of anticoagulants - watermelon harvesting supervisor (current) use of oral hypoglycemic drugs - Nicotine dependence, unspecified, uncomplicated - Other chest pain - Other nursing home (current) drug therapy - Other stimulant [...] Hypertensive heart disease with heart failure - watermelon harvesting supervisor (current) use of oral hypoglycemic drugs - Nicotine dependence, unspecified, uncomplicated - Other rodent exterminator (current) drug therapy - Shortness of breath - Type 2 diabetes mellitus with diabetic neuropathy, unspecified 09/22/2023 09:23 [facility] [place] TYPE: Emergency COMPLAINT: - SOB, COUGHING BLOOD, WEAKNESS, NO APPETITE DIAGNOSES: - Contact with and (suspected) exposure to COVID-19 - Heart failure, unspecified - Hypertensive heart disease with heart failure - half-way (current) use of anticoagulants - Nicotine dependence, unspecified, uncomplicated - Non-ST elevation (NSTEMI) myocardial infarction - Other nursing home (current) drug therapy - Presence of automatic (implantable) cardiac defibrillator - Procedure and treatment not carried out because of patient's decision for other reasons - Shortness of breath - Type 2 diabetes mellitus with diabetic neuropathy, unspecified 09/18/2023 15:04 [facility] TYPE: Emergency DIAGNOSES: - [...] Hypertensive heart disease with heart failure - watermelon harvesting supervisor (current) use of anticoagulants - Nicotine dependence, unspecified, uncomplicated - Other disorders of lung - Other nursing home (current) drug therapy - Type 2 diabetes mellitus with diabetic neuropathy, unspecified 07/24/2023 12:37 [facility] [place] TYPE: Emergency COMPLAINT: - GENERAL DIAGNOSES: - GENERAL 07/23/2023 15:59 [facility] TYPE: Emergency COMPLAINT: - TROUBLE BREATHING TROUBLE WALKING DIAGNOSES: - TROUBLE BREATHING TROUBLE WALKING 07/14/2023 15:46 [facility] [place] [facility] TYPE: Emergency COMPLAINT: - MEDICAL CLEARANCE DIAGNOSES: - Encounter for general adult medical examination without abnormal findings - MEDICAL CLEARANCE 04/14/2023 00:07 [facility] [place] TYPE: Emergency COMPLAINT: - CHEST PAIN DIAGNOSES: - Chest pain, unspecified - Heart failure, unspecified - Hypertensive heart disease with heart failure - half-way (current) use of anticoagulants - Nicotine dependence, unspecified, uncomplicated - Other rodent exterminator (current) drug therapy - Other stimulant abuse, uncomplicated - Type 2 diabetes mellitus with diabetic chronic kidney disease 03/28/2023 05:37 [facility] [place] TYPE: Emergency COMPLAINT: - CHEST PAIN, SHORTNESS OF BREATH DIAGNOSES: - CHEST PAIN, SHORTNESS OF BREATH 03/22/2023 08:17 [facility] [place] TYPE: Emergency COMPLAINT: - SOB,COUGH DIAGNOSES: - Contact with and (suspected) exposure to COVID-19 - Cough, unspecified - Heart failure, unspecified - Hypertensive heart disease with heart failure - half-way (current) use of anticoagulants - Nicotine dependence, unspecified, uncomplicated - Other rodent exterminator (current) drug therapy - Type 2 diabetes mellitus without complications 03/18/2023 04:53 [facility] [place] TYPE: Emergency COMPLAINT: - RT HIP PAIN DIAGNOSES: - Alcohol abuse, uncomplicated - Heart failure, unspecified - Homelessness unspecified - Hypertensive heart disease with heart failure - watermelon harvesting supervisor (current) use of anticoagulants - half-way (current) use of oral hypoglycemic drugs - Nicotine dependence, unspecified, uncomplicated - Other chronic pain - Other rodent exterminator (current) drug therapy - Other stimulant abuse, [...] failure - Inflammatory liver disease, unspecified - watermelon harvesting supervisor (current) use of anticoagulants - watermelon harvesting supervisor (current) use of oral hypoglycemic drugs - Nicotine dependence, unspecified, uncomplicated - Other rodent exterminator (current) drug therapy - Other psychoactive substance abuse, uncomplicated - Type 2 diabetes mellitus without complications - Unspecified abdominal pain 01/13/2023 14:59 [facility] TYPE: Emergency DIAGNOSES: - Acute on [...] - Nicotine dependence, unspecified, uncomplicated - Other nursing home (current) drug therapy - Other stimulant abuse with intoxication, unspecified - Pneumonia, unspecified organism - Type 2 diabetes mellitus with diabetic neuropathy, unspecified - Unspecified viral hepatitis C 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 coma Plus 1 More Visit INPATIENT VISIT TRACKING (12 MO.) 11/18/2023 11:[address] [facility] [place] TYPE: Medical Surgical COMPLAINT: - CHF EXACERBATION DIAGNOSES: - Acquired absence of other specified parts of digestive tract - Encounter for screening for COVID-19 - Gastro-esophageal reflux disease without esophagitis - Heart failure, unspecified - Homelessness unspecified - Hypertensive heart disease with heart failure - Hypokalemia - Hypomagnesemia - half-way (current) use of antibiotics - half-way (current) use of anticoagulants - half-way (current) use of inhaled steroids - watermelon harvesting supervisor (current) use of oral hypoglycemic drugs - Nicotine dependence, cigarettes, uncomplicated - Other nursing home (current) drug therapy - Other specified postprocedural states - Other stimulant abuse, uncomplicated - Type 2 diabetes mellitus with diabetic neuropathy, unspecified - Type 2 diabetes mellitus without complications - Unspecified abdominal hernia without obstruction or gangrene - Unspecified viral hepatitis C 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 coma - PATIENT'S OTHER NONCOMPL WITH MEDS REGIMEN FOR OTH 11/05/2023 19:26 [facility] [place] TYPE: Observation [...] initial encounter - Hypothermia, initial encounter - half-way (current) use of anticoagulants - watermelon harvesting supervisor (current) use of anticoagulants - half-way (current) use of oral hypoglycemic drugs - watermelon harvesting supervisor (current) use of oral hypoglycemic drugs - Nicotine dependence, cigarettes, uncomplicated - Nicotine dependence, cigarettes, uncomplicated - Old myocardial infarction - Old myocardial infarction - Other disorders of bilirubin metabolism - Other disorders of bilirubin metabolism - Other rodent exterminator (current) drug therapy - Other rodent exterminator (current) drug therapy - Other specified postprocedural [...] gangrene, not specified as recurrent 09/18/2023 15:04 [facility] TYPE: Medical Surgical DIAGNOSES: - Acute on chronic systolic (congestive) heart failure - Cardiomyopathy, unspecified - Chronic pulmonary embolism - Essential (primary) hypertension - Other specified disorders of the male genital organs - Other stimulant abuse, uncomplicated - Type 2 diabetes mellitus with hyperglycemia 07/24/2023 23:40 [facility] TYPE: Cardiology DIAGNOSES: 40882. Cardiac arrest, cause unspecified [id number]. Post Code 78877. Cardiomyopathy due to drug and external agent 07/24/2023 12:37 [facility] [place] TYPE: Medical Surgical DIAGNOSES: - Acute systolic (congestive) heart failure - Heart failure, unspecified 03/28/2023 05:37 [facility] [place] TYPE: Medical Surgical DIAGNOSES: - Heart failure, unspecified 03/10/2023 19:52 [facility] [place] TYPE: [facility] DIAGNOSES: 74580. Acute and subacute hepatic failure without coma 51963. acute hepatitis with encephalopathy, request for liver transplant eval [id number]. Acute and subacute hepatic failure without coma 78672. Housing instability, housed unspecified [id number]. half-way (current) use of insulin 77589. Type 2 diabetes mellitus without complications 01/04/2023 11:36 [facility] TYPE: Internal Medicine DIAGNOSES: - Acute on chronic systolic (congestive) heart failure - Cardiac arrest, cause unspecified - Encounter for palliative care - Intracardiac thrombosis, not elsewhere classified - Other malaise - Other specified counseling - Other stimulant abuse, uncomplicated - PEA cardiac arrest 12/19/2022 13:29 [facility] TYPE: Intensive Care DIAGNOSES: - Acute on chronic systolic (congestive) heart failure - Bacteremia - Heart failure, unspecified - Hemoptysis - Non-ST elevation (NSTEMI) myocardial infarction - Other pulmonary embolism without acute cor pulmonale - Other stimulant abuse, uncomplicated - Pneumonia, unspecified organism - Type 2 diabetes mellitus with hyperglycemia - Unspecified systolic (congestive) heart failure [email or web address]
[2023-11-26] MEDS ORDERED: TORSEMIDE20 MG PO ×2 (19:36)
[2023-11-26 20:05] LABS: INR 1.45 (0.80-1.30); PROTIME 17.2 Sec (11.2-14.2)
[2023-11-26 20:14] LABS: LACTIC ACID, BLOOD 2.4 mmol/L (0.4-2.0)
[2023-11-26 20:15] LABS: HEMATOCRIT 35.9 % (35.0-50.0); HEMOGLOBIN 10.7 g/dL (12.0-18.0); MCH 24.4 (27-36); MCHC 29.9 g/dl (30-36); MCV 81.6 fl (81-99); PLATELET COUNT 227 K/uL (140-440); RDW 23.1 (10.5-15.0)
[2023-11-26 20:29] LABS: BANDS, MANUAL DIFF 26; LYMPHOCYTES, MANUAL DIFF 7; MONOCYTES, MANUAL DIFF 4; NEUTROPHILS, MANUAL DIFF 63
[2023-11-26 20:30] LABS: ALBUMIN 2.4 g/dL (3.4-5.0); ALBUMIN/GLOBULIN RATIO 0.56 (1.1-2.4); ANION GAP 3.8 (7-21); BILIRUBIN, TOTAL 2.8 ng/dL (0.2-1.0); BUN/CREATININE RATIO 24.32 (6.0-28.6); CALCIUM 8.4 mg/dL (8.5-10.1); CREATININE, SERUM 1.11 mg/dL (0.70-1.30); PROTEIN, TOTAL 6.7 g/dL (6.4-8.2)
[2023-11-26 20:32] LABS: BILIRUBIN, URINE NEGATIVE (negative); BLOOD/HGB, URINE TRACE-I (Negative); KETONE, URINE NEGATIVE (Negative); LEUK ESTERASE, URINE NEGATIVE (negative); NITRITE, URINE NEGATIVE (negative)
[2023-11-26 20:33] LABS: POTASSIUM 1.8 mmol/L (3.5-5.1)
[2023-11-26 20:39] LABS: EPITHELIAL CELLS, URINE SQUAMOUS 1+ /lpf (0-1+)
[2023-11-26 20:40] LABS: BACTERIA, URINE RARE /hpf (negative); CASTS, URINE NONE SEEN \\lpf; CRYSTALS, URINE NONE SEEN (0-1+); REFLEX CULTURE, URINE No (No)
[2023-11-26 22:20] LABS: AMPHETAMINES, URINE POSITIVE (NEGATIVE); BARBITURATES, URINE NEGATIVE (NEGATIVE); BENZODIAZEPINE, URINE NEGATIVE (NEGATIVE); BUPRENORPHINE, URINE NEGATIVE (NEGATIVE); CANNABINOID, URINE NEGATIVE (NEGATIVE); COCAINE, URINE NEGATIVE (NEGATIVE); ECSTASY, URINE POSITIVE (NEGATIVE); FENTANYL, URINE NEGATIVE (NEGATIVE); METHADONE, URINE NEGATIVE (NEGATIVE); OPIATES, URINE NEGATIVE (NEGATIVE); OXYCODONE, URINE NEGATIVE (NEGATIVE); PHENCYCLIDINE, URINE NEGATIVE (NEGATIVE)
[2023-11-26 23:08] LABS: ANION GAP 4.6 (7-21); BUN/CREATININE RATIO 24.24 (6.0-28.6); CALCIUM 8.2 mg/dL (8.5-10.1); CREATININE, SERUM 0.99 mg/dL (0.70-1.30); MAGNESIUM 1.8 mg/dL (1.8-2.4); POTASSIUM 2.6 mmol/L (3.5-5.1)
[2023-11-26 23:26] LABS: PH, VENOUS 7.531 (7.31-7.41)
[2023-11-27] VITALS (10 sets, daily range): BP systolic 94–117; BP diastolic 54–73
--- NOTE | 2023-11-27 03:00 | NUR ---
pt CALLING OUT. pt STATED HE WAS HAVING A BAD DREAM AND PEED THE BED. WILD CHANED. pt DENIES ANY OTHER NEEDS AT THIS TIME. CALL LIGHT WITHIN REACH.
--- NOTE | 2023-11-27 03:30 | NUR ---
BLOOD DRAWN FROM CRENTAL LINE PER PROTOCOL. pt TOLERATED WELL. pt DENIES ANY OTHER NEEDS AT THIS TIME. CALL LIGHT WITHIN REACH.
[2023-11-27 03:49] LABS: BUN/CREATININE RATIO 21.15 (6.0-28.6); CALCIUM 7.7 mg/dL (8.5-10.1); CREATININE, SERUM 1.04 mg/dL (0.70-1.30); MAGNESIUM 1.5 mg/dL (1.8-2.4)
--- NOTE | 2023-11-27 04:00 | NUR ---
CRITICAL LAB VALUES OF K+ 2.0 CAME BACK. MD ARREOLA NOTIFIED. VERBAL ORDERS GIVEN FOR 40 MEQ K+ PO Q2H X3 DOSES, 40 MEQ K+ IV 2 MEQ/HR, 2GM MAG IV X2. BMP AND MAG LAB AT 0800 AND 1200. REPEAT BACK METHOD FOR VERIFACATION. IV K+ AND MAG STARTED AND INFUSING. pt DENIES ANY OTHER NEEDS AT THIS TIME. CALL LIGHT WITHIN REACH.
--- NOTE | 2023-11-27 06:35 | NUR ---
RT VANN IN ROOM COMPLETING EKG.
--- NOTE | 2023-11-27 06:35 | NUR ---
pt C/0 06/25 PAIN. PRN PAIN MEDICATION ADMINISTERED, SEE MAR. SUGAR FREE PUDDING AND MILK WITH RAFIA CRACKER PROVIDED FOR A SNACK. ICE WATER REFRESHED. WARM BLANKET PROVIDED. RLE REDNESS OUTLINED WITH PEN. pt HAS. REDNESS SCATTERED ALL OVER HIS BODY. pt DENIES ANY OTHER NEEDS AT THIS TIME. CALL LIGHT WITHIN REACH.
--- NOTE | 2023-11-27 07:10 | NUR ---
REPORT RECEIVED FROM JOHNY DAVIS. IV PUMP ALARMING, RESOLVED. PT SL AT THIS TIME. PT REPORTING TOILETING NEEDS. URINAL PROVIDED. VOID NOTED. PT DENIES ANY OTHER NEEDS AT THIS TIME. CALL LIGHT IN REACH. IN RECLINER.
[2023-11-27 08:35] LABS: ALBUMIN 2.1 g/dL (3.4-5.0); ALBUMIN/GLOBULIN RATIO 0.54 (1.1-2.4); ANION GAP -0.7 (7-21); BILIRUBIN, TOTAL 2.4 ng/dL (0.2-1.0); BUN/CREATININE RATIO 24.44 (6.0-28.6); CREATININE, SERUM 0.9 mg/dL (0.70-1.30)
--- NOTE | 2023-11-27 08:40 | NUR ---
THIS RN RECEIVED CRITICAL VALUE FROM BEKAH WOLFE, LAB REGARDING PTs POTASSIUM OF 2.3. MD NOTIFIED, NO NEW ORDERS AT THIS TIME.
[2023-11-27 08:41] LABS: POTASSIUM 2.3 mmol/L (3.5-5.1)
--- NOTE | 2023-11-27 08:45 | NUR ---
THIS RN RECEIVED CRITICAL LAB VALUE OF CREATINE KINASE OF 18 FROM FAVIOLA MIRANDA. ATTEMPTED TO ALERT MD. NO ANSWER ON PHONE.
--- NOTE | 2023-11-27 09:04 | NUR ---
THIS RN TALKED TO DR. ARREOLA. ORDERS RECEIVED, VERIFIED WITH READ BACK. PHARMACY CALLED.
--- NOTE | 2023-11-27 09:04 | NUR ---
THIS RN IN ROOM WITH . ORDERS RECEIVED, VERIFIED WITH READBACK.
--- NOTE | 2023-11-27 09:46 | NUR ---
IN TO ADMINISTER MEDICAITON, SEE MAR. PT RESTING IN BED, SEMI-FOWLERS. PT RESPONDS AND OPENS EYES WHEN ADDRESSED. ASSESSMENT COMPLETE. LUNG SOUNDS CLEAR IN KATIA, LLL AND RUL. DIMINISHED IN RLL. BOWEL TONES ACTIVE. RLE REDNESS NOTED, WARM TO TOUCH, EDEMA NOTED TO RLE. RLE ELEVATED ON PILLOW. PEDAL PULSES PALPABLE AND EQUAL BILATERALLY. HEART RATE TACHYCARDIC. PT DENIES CHEST PAIN OR PRESSURE AT THIS TIME. IV FLUSHES WNL. TRIPLE LUMEN CENTRAL LINE BLOOD RETURN NOTED FROM BROWN, BLUE AND WHITE LUMENS AND ALL FLUSH WNL. PT CONTINUES TO REST IN BED. CALL LIGHT IN REACH. BED ALARM ON. IN ROOM.
--- NOTE | 2023-11-27 10:34 | NUR ---
IN TO ADMINISTER MEDICATION, SEE MAR. PT RESTING IN BED SEMI-FOWLERS. EYES CLSOED, RR EVEN AND UNLABORED. PT ALLOWED TO REST. NO OTHER NEEDS IDENTIFIED AT THIS TIME. CALL LIGHT IN REACH. IN RECLINER.
--- NOTE | 2023-11-27 11:00 | NUR ---
IN TO ANSWER CALL LIGHT. PT REPORTING TOILETING NEEDS, PT USING URINAL. VOID NOTED. URINAL EMPTIED. PT DENIES ANY OTHER NEEDS AT THIS TIME. CALL LIGHT IN REACH. IN ROOM.
[2023-11-27] MEDS ORDERED: METOLAZONE2.5 MG PO ×2 (11:13)
[2023-11-27] MEDS ORDERED: POTASSIUM CHLO20 ME1 PO ×2 (11:14)
--- NOTE | 2023-11-27 11:19 | NUR ---
MED REC COMPLETE
--- NOTE | 2023-11-27 11:39 | NUR ---
UR NOTE [facility] CELLULITIS (ISC) INPATIENT 11/26/23 MET CLINICAL INDICATIONS FOR ADMISSION TO INPATIENT CARE GL DAY 1
--- NOTE | 2023-11-27 12:09 | NUR ---
IN TO ADMINISTER MEDICATION, SEE MAR. LABS DRAWN FROM BLUE LUMEN ON CENTRAL LINE AND THEN FLUSHED WITH 20ML NS PULSATILE. PT SITTING UP IN BED AND EATING LUNCH. PT AND DENY ANY NEEDS AT THIS TIME. CALL LIGHT IN REACH.
[2023-11-27 12:37] LABS: ANION GAP 3.2 (7-21); BUN/CREATININE RATIO 25.8 (6.0-28.6); CALCIUM 8.2 mg/dL (8.5-10.1); CREATININE, SERUM 0.93 mg/dL (0.70-1.30); POTASSIUM 3.2 mmol/L (3.5-5.1)
--- NOTE | 2023-11-27 12:37 | NUR ---
THIS RN CALLED DR. ARREOLA REGARDING PTs MEWS SCORE. PER MD "MONITOR PT FOR NOW." NEW ORDERS RECEIVED, VERIFIED WITH READBACK. DISCUSSED PROTOCOL PER RAPID RESPONDS, PER MD NOT NECESSARY AT THIS TIME.
--- NOTE | 2023-11-27 13:07 | NUR ---
IN TO ADMINISTER MEDICATION, SEE MAR. PT SITTING UP IN BED AND OPENS EYES AND RESPONDS WHEN ADDRESSED. IN ROOM. PT DENIES NAY NEEDS AT THIS TIME. CALL LIGHT IN REACH.
--- NOTE | 2023-11-27 13:47 | NUR ---
IN TO ADMINISTER MEDICATION, SEE MAR. VITALS COMPLETE. PT TAKES PO MEDICATION WITH NO ISSUES. ASSESSMENT COMPLETE. LUNG SOUNDS CLEAR IN RUL, KATIA AND LLL. DIMINISHED IN RLL. RLE ELEVATED ON PILLOW, REDNESS NOTED FROM UPPER BLACKWELL TO FOOT. RLE WARM TO TOUCH. EDEMA NOTED TO RLE. CMS INTACT TO RLE. PEDAL PULSE PALPABLE ON RLE. PT SITTING UP IN BED AND REPORTS NEED TO VOID. PT USES URNIAL, URINAL EMPTIED. PT DENIES ANY OTHER NEEDS AT THIS TIME. CALL LIGHT IN REACH.
--- NOTE | 2023-11-27 14:56 | NUR ---
IN TO ROUND ON PT. PT SITTING UP IN BED AND REPSONDS WHEN ADDRESSED. WARM BLANKET PROVIDED FOR PT AND . BOLUS COMPLETE. VITALS COMPLETE. PT DENIES ANY OTHER NEEDS AT THIS TIME. CALL LIGHT IN REACH.
--- NOTE | 2023-11-27 15:39 | NUR ---
IN TO ADMINISTER MEDICATION, SEE MAR. PT TAKES PO MEDICATION WITH NO ISSUES. PT REPORTING TOILETING NEEDS. ROSENDO MORELOS IN TO ASSIST WITH TRANSFERRING PT. PT REPORTING PAIN 10/10 IN RLE AND PT UNABLE TO STAND UP STRAIGHT WITH 2PA. PT BACK ON EDGE OF BED. OFFERED BED QUINONES, PT REFUSES. OFFERED BSC, PT REFUSES. PT STATES "I WILL JUST HOLD IT UNTIL TOMORROW." THIS RN WILL CALL MD TO ASK FOR SOMETHING FOR PTs PAIN. PT BACK IN BED. RLE ELEVATED ON PILLOW. PT DENIES ANY OTHER NEEDS. CALL LIGHT IN REACH. BED ALARM ON.
--- NOTE | 2023-11-27 16:02 | NUR ---
THIS RN CALLED DR. ARREOLA TO ASK FOR SOMETHING FOR PAIN FOR PT. ALSO INFORMED MD OF PTs POTASSIUM. ORDERS RECEIVED, VERIFIED WITH READBACK.
--- NOTE | 2023-11-27 17:02 | NUR ---
IN TO ADMINISTER MEDICATION, SEE MAR. PT SITTING UP IN BED EATING DINNER. PT DENIES ANY OTHER NEEDS AT THIS TIME. CALL LIGHT IN REACH. IN RECLINER.
--- NOTE | 2023-11-27 17:29 | NUR ---
IN TO ANSWER CALL LIGHT. PT REQUESTING DIET KAVITA, DIET KAVITA PROVIDED. PT DENIES ANY OTHER NEEDS AT THIS TIME. CALL LIGHT IN REACH. IN ROOM.
--- NOTE | 2023-11-27 19:00 | NUR ---
shift report received from daysnjft jian bernal at bedside. pt resting quietly in bed, on ra. rr even and unlabored, no distress noted. pt briefly awoke then returned to resting quietly. in room. ble elevated in bed. iv saline locked along with triple lumen central line, dressing c/d/i. call light in reach.
--- NOTE | 2023-11-27 22:00 | NUR ---
ASSESSMENT COMPLETE, pt RESTING IN BED WITH EYES CLOSED-AWOKE TO VOICE. VS AND I&O'S COLLECTED, SBP 99-SIMILAR TO TRENDS. TELE# [address]-SINUS TACH. HR APPROX 112 PRIOR TO WAKING UP, WHILE pt IS AWAKE AND TALKING/INTERACTING WITH THIS RN, HR UP TO ONE TEENS TO 120. CENTRAL LINE DRESSING, C/D/I-FLUSHED AND SALINE LOCKED PER PROTOCOL, ALCOHOL CAPS IN PLACE. BRISK BLOOD RETURN NOTED TO ALL 3 LUMENS. IV SITE WNL, SALINE LOCKED. REDDNESS TO RLE REMAISN WITHIN OUTLINE, +2 EDEMA NOTED WITH WEAK PEDAL PULSES. NEW CHUCKS IN PLACE AND BLE ELEVATED IN BED. LLE SOMEWHAT TERENCE IN COLOR, PEDAL PULSE NOTED. IN ROOM AND SHOWERED, PROVIDED WITH HOT WATER FOR TEA. DIET SODA AND SF PUDDING ALSO PROVIDED TO pt PER REQUEST. SCHEDULED MEDS GIVEN-SEE EMAR. INSULIN SS ALSO GIVEN FOR ACCU CHECK RESULT OF 168. NO ADDITIONAL NEEDS, pt AND VERY APPRECIATIVE OF CARES, CALL LIGHT IN REACH OF pt.
--- NOTE | 2023-11-27 22:56 | NUR ---
prn pain medication given for reported 8/10 pain in rle-see emar. jian dumont to clean ble and obtain photos of ble. call light in reach.
[2023-11-28] VITALS (14 sets, daily range): BP systolic 90–107; BP diastolic 56–77
--- NOTE | 2023-11-28 00:08 | NUR ---
WOUNDS CLEANED WITH SOAP, WARM CLOTHS AND WOUND CLEANSER. LEFT HAND NEAR THUMB, SCABBED AREA WITH REDNESS, DRY. OPEN TO AIR. LEFT UPPER LEG PROXIMAL TO KNEE, SCAB ABOUT .3 CM, DRY. OPEN TO AIR. LEFT LOWER LEG DISTAL TO KNEE, 4 SMALL SCABS IN A LINEAR ALIGNMENT FROM 12 TO 6, DRY WITH SCANT REDNESS. COVERED WITH KERLIX AND COBAN. POSTERIOR LEFT ANKLE 3CM ARE OF OPEN WOUND WITH REDNESS, SCANT SEROUS DRAIANGE. COVERED WITH ADAPTIC, GAUZE PAD, KERLIX AND COBAN RO SECURE PT MOVES AROUND OFTEN. LEFT DORSAL FOOT, .8CM RED AREA, DRY. COVERED WITH KERLIX AND COBAN PART OF WRAP. LEFT FOOT AT BAS EOF 2ND TOE. WOUND WITH REDNESS AND MOSTLY COVERED WITH FIRMLY ADHHERED ESCAR. DRY. OPEN TO AIR. RIGHT KNEE HAS A SCAB 1.5CM LENGTH BY 1CM WIDE, OPEN TO AIR. RIGHT MID KNEE SCAB, 1.2CM LENGTH BY 1.8CM WIDE, DRY. OPEN TO AIR. RIGHT LOWER LEG 2.5CM WOUND WITH FIRMLY ADHERED ESCAR, REDNESS, SCANT SEROUS DRAINAGE. OPEN TO AIR. RIGHT LOWER LEG DISTAL TO KNEE, 2 AREAS OF SCAB, DRY, OPEN TO AIR. RIGHT LATERAL FOOT BELOW THE ANKLE HAS AN ULCER 2.2CM DIAMETER, FIRMLY ADHERED ESCAR. SMALL AMOUNT OF SEROUS DRAINAGE. COVERED WITH ADAPTIC, ABD PAD, KERLIX AND COBAN FOR SECUREMENT. RIGHT LATERAL ANKLE HAS A WOUNDTHAT APPEAR LIKE A CRACK IN THE SKLIN WITH SMALL AMOUNTS OF SEROUS DRAINAGE, REDNESS. COVERED WITH ADAPTIC, ABD PAD, KERLIX AND COBAN FOR SECUREMENT. RIGHT FOOT BIG TOE HAS DARK DISCOLORATION AND SCAB FIRMLY ADHERED. OPEN TO AIR. ALL WOUNDS ARE PAINFULL TO TOUCH. WOUND CONSULT PLACED. EDUCATION PROVIDED TO PT CONCERNING WOUND CARE AND DRESSINGS. PT AND VERBALIZE UNDERSTANDING OF EDUCATION. PT WAS PREMEDICATED WITH PAIN MEDS BEFORE PROCEDURE AND TOLERATED FAIR. CALL LIGHT IN REACH.
--- NOTE | 2023-11-28 00:10 | NUR ---
JOHNY LAMAS RECENTLY CLEANED WOUNDS TO BLE, PHOTOS ALSO OBTAINED W/ SIGNED CONSENT. DRESSING W/ ADAPTIC, KERLEX/ABD PAD AND TIGRE WRAP. SEE NOTE FROM JOHNY LAMAS FOR ADDITIONAL DETAILS REGARDING WOUNDS, WOUND CONSULT PLACED PER CLINICAL JUDEMENT AND ROOFING FOREMANJOHNY CAMPBELL ALONG WITH MASTER TAX ADVISOR MARY.
--- NOTE | 2023-11-28 02:28 | NUR ---
ROUNDED ON pt, PT AWOKE TO VOICE. VS COLLECTED SBP REMAINS IN 90'S, SIMILAR TO TRENDS. AFEBRILE, HR REMAINS BORDERLINE ONE TEENS WHEN ASKEEP AND RIGHT AROUND LOW 120'S WHEN MOVING AROUND. WILL CONITNUE TO MONITOR. BLE REMAINS ELEVATED IN BED, DRESSING PLACED FROM JOHNY LAMAS EARLIER IN SHIFT C/D/I, TOES TO LLE COOL TO TOUCH-BASELINE PER pt, WEAK PEDAL PULSE NOTED. REDDNESS REMAINS UNCHANGED FROM INITIAL ASSESSMENT. CALL LIGHT IN REACH, pt REPORT COUGH- NONPRODUCTIVE. NO DISTRSS NOTED. CALL LIGHT IN REACH.
--- NOTE | 2023-11-28 03:04 | NUR ---
new tele battery in place.
--- NOTE | 2023-11-28 03:57 | NUR ---
DR WEN MADE AWARE OF TRENDING HR BETWEEN 116-MID 120'S, MOST RECENT BP RESULT OF 100/63, MAP OF 72. NO NEW ORDERS RECEIVED REGARDING HR. pt ALSO REPORTING COUGH AND ASKING FOR COUGH MEDICATION, TELEPHONE ORDER READ BACK FOR TESSALON PERLES 100MG PO TID PRN. PRN PAIN AND COUGH MEDICATION GIVEN-SEE EMAR.
--- NOTE | 2023-11-28 05:07 | NUR ---
AM BLOOD DRAW COLLECTED FROM PROXIMAL WHITE PORT FROM CENTRAL LINE, FLUSHED WITH 10MLS PRIOR TO BLOOD DRAW AND 10MLS WASTED. THEN FLUSHED AND SALINE LCOKED PER PROTOCOL. NEW CLAVE IN PLACE. OTHER TWO LUMENS ALSO FLUSHED AND SALINE LOCKED TO ENSURE PATENCY PER POLICY. BRISK BLOOD RETURN NOTED TO LUMENS X3 AND ALCOHOL CAP IN PLACE. VS AND I&O'S ALSO DONE. pt REMAINS SOMEWHAT RESTLESS IN BED, HR REMAINS BETWEEN UPPER ONE TEENS TO LOW 120'S. BLE ELEVATED IN BED, CALL LIGHT IN REACH.
[2023-11-28 05:29] LABS: HEMATOCRIT 31.8 % (35.0-50.0); HEMOGLOBIN 9.9 g/dL (12.0-18.0); MCH 25.1 (27-36); MCHC 31.1 g/dl (30-36); MCV 80.9 fl (81-99); PLATELET COUNT 243 K/uL (140-440); RBC 3.93 M/ul (4.3-5.7); RDW 22.9 (10.5-15.0)
[2023-11-28 05:40] LABS: ANION GAP 6.3 (7-21); BUN/CREATININE RATIO 28.97 (6.0-28.6); CREATININE, SERUM 1.07 mg/dL (0.70-1.30); MAGNESIUM 1.7 mg/dL (1.8-2.4); POTASSIUM 4.3 mmol/L (3.5-5.1)
[2023-11-28 06:02] LABS: LYMPHOCYTES, MANUAL DIFF 8; MONOCYTES, MANUAL DIFF 9; NEUTROPHILS, MANUAL DIFF 83
--- NOTE | 2023-11-28 06:20 | NUR ---
PROTOCOL FOR CENTRAL LINE HEP LOCK PLACED, DISCUSSED WITH BOTH BUS ANALYST AND HOUSE SUERPVISOR.
--- NOTE | 2023-11-28 07:06 | NUR ---
REPORT RECEIVED FROM NIGHT RN, ALL QUESTIONS ANSWERED. PT AWAKE IN BED, DENIES NEEDS AT THIS TIME. CALL LIGHT IN REACH.
--- NOTE | 2023-11-28 07:30 | NUR ---
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
--- NOTE | 2023-11-28 09:18 | NUR ---
pt c/o pain to rle rating 7-8/10, given prn diluadid, see emar. discussed plan of care and pain control. pt denies further needs at this time. call light in reach.
--- NOTE | 2023-11-28 10:03 | NUR ---
PT RESTING QUIETLY IN BED WITH EYES CLOSED, AWAKENS EASILY. CALL LIGHT IN REACH.
--- NOTE | 2023-11-28 11:13 | NUR ---
PT RESTING IN BED WITH EYES CLOSED, RESPIRATIONS EVEN AND UNLABORED. AWAKENS EASILY. CALL LIGHT IN REACH.
--- NOTE | 2023-11-28 13:10 | NUR ---
pt resting in bed, awakens easily. states pain has improved. denies needs at this time. call light in reach.
--- NOTE | 2023-11-28 15:37 | NUR ---
WOUND CONSULT COMPLETED. PT WITH BILATERAL LOWER LEG WOUNDS, RIGHT WORSE THAN LEFT. RIGHT LEG WITH ERRYTHEMA FROM TOES TO JUST BELOW KNEE, OUTLINED, CURRENTLY BEING TREATED FOR CELLULITIS. RIGHT 1ST TOE TIP WITH STABLE ESCHAR, 2.8CM X 2.6CM, LEFT OPEN TO AIR. RIGHT LATERAL ANKLE WITH WOUND 2.3X2.5X 0.1CM WOUND, BASE 100% PALE SLOUGH, WOUND EDGES VIABLE PINK. RIGHT LATERAL LOWER LEG JUST ABOVE ANKLE WITH WOUND 5X 2.8X 0.1CM, WOUND BASE 50% PALE SLOUGH AND 10% STABLE ESCHAR, SCANT DRAINAGE, WOUND EDGES VIABLE TAPERING. RIGHT POSTERIOR LOWER LEG WOUND 0.8X 1.3X 0.1CM, WOUND BASE 100% CLEAN NON GRANULATING WITH SMALL AMOUNT OF BLEEDING, WOUND EDGES VIABLE/TAPERING. RIGHT LEG WOUNDS CLEANSED AND COVERED WITH MEDIHONEY, ADPATIC AND GAUZE ROLL, SECURED WITH TIGRE BANDAGE. LEFT POSTERIOR LOWER LEG WITH WOUND 2X 3.2 CM, 505 SLOUGH AND 50% CLEAN NONGRANULATING, EDGES VIABLE AND TAPERING. WOUND CLEANSED AND COVERED WITH MEDIHONEY AND ALLEVYN. DISCUSSED WITH PRIMARY RN. WOUNDS APPEAR TO BE ARTERIAL, PT POOR HISTORIAN, SUJATHA CONSIDERED HOWEVER DEFERED DUE TO EXTREME PAIN.
--- NOTE | 2023-11-28 15:45 | NUR ---
IN ROOM TO ASSIST WOUND NURSE WITH WOUND ASSESSMENT. PT TOLERATED FAIRLY. PT ASSISTED 2 PERSON TO BSC. DENIES FURTHER NEEDS AT THIS TIME. CALL LIGHT IN REACH.
--- NOTE | 2023-11-28 16:55 | NUR ---
DISCUSSED WOUND CARE RECOMMENDATIONS WITH DR. ARREOLA, VERBAL STEVEN TO PROCEED WITH TREATMENT. ADDITIONALLY DISCUSSED PODIATRY CONSULT FOR RIGHT GREAT TOE, VERBAL ORDER TO CONSULT PODIATRY, DR. REYNOLDS CALLED, NOTIFIED OF CONSULT AND DISCUSSED PT WOUND, DR. REYNOLDS TO SEE PT TOMORROW.
--- NOTE | 2023-11-28 19:10 | NUR ---
PT CALL LIGHT ANSWERED. PT C/O PAIN 10, RN NOTIFIED. URINAL EMPTIED. PT DECLINED HAVING FOOD TRAY TAKEN. NO FURTHER NEEDS, CALL LIGHT WITHIN REACH
--- NOTE | 2023-11-28 19:15 | NUR ---
SHIFT REPORT RECEIVED FROM DAYSHIFT JOHNY NICHOLSON, pt AWAKE AND RESTLESS IN BED, GROANING. JOHNY LAMAS TO FURTHER ASSESS AND ADMINISTER PRN PAIN MEDICATION.
--- NOTE | 2023-11-28 19:41 | NUR ---
PT YELLING IN ROOM. PT STATES HE HAS 8/10 RLE PAIN. PRN PAIN MED PROVIDED. PT IS DROWSY BUT EASY TO WAKE. PT STATES NO OTHER NEEDS. CALL LIGHT IN REACH.
--- NOTE | 2023-11-28 21:33 | NUR ---
ASSESSMENT COMPLETE, pt FOUND RESTING QUIETLY IN BED WITH EYES CLOSED-SOMEWHAT DROWSY. SCHEDULED INSULIN AND PRN COUGH MEDICATION GIVEN-SEE EMAR. IV SITE WNL, FLUSHED AND SALINE LOCKED. CENTRAL LINE FLUSHED AND HEP LOCKED PER POLICY, DRESSING C/D/I. DRESSING TO RLE AND ALLEVYN TO LLE C/D/I-BLE ELEVATED IN BED. WHEN AWAKE, pt OCASSIONALLY GROANS/COUGH-HX METH USE, HAS BASELINE RESTLESSNESS. IN ROOM. REDDNESS TO RLE REMAINS WITHIN OUTLINE. SF SNACK AND SODA PROVIDED TO pt AND TO . CALL LIGHT IN REACH.
[2023-11-29] VITALS (8 sets, daily range): BP systolic 97–118; BP diastolic 68–84
--- NOTE | 2023-11-29 00:07 | NUR ---
ROUNDED ON pt, pt AND BOTH SLEEPING WITH EYES CLOSED. RR EVEN AND UNALBORED, pt INTERMITTENTLY COUGHS. VS COLLECTED AND CHARTED- pt AND REQUESTING SNACKS, PROVIDED. WHEN ASKED IF pt WAS COMFORTABLE HE STATES, "YEAH". pt DENIES ADDITIONAL NEEDS OR CONCERNS. CALL LIGHT IN REACH AND BED ALARM ON. PILLOW UNDER LEFT HIP.
--- NOTE | 2023-11-29 02:10 | NUR ---
ROUNDED ON pt, pt HEARD INTERMITTENTLY GROANING BUT UPON ENTERING ROOM pt HAS EYES CLOSED, RR EVEN AND UNLABORED. pt WILL RANDOMLY AWAKEN AND ASK A QUESTION AND CONVERSE AND THEN RETURN TO SLEEPING. pt AT TIMES RESTLESS IN BED, REPORTS PAIN IN RLE 8/10, PRN PAIN AND COUGH MEDICAITON GIVEN-SEE EMAR. NO CHANGE TO BLE, RLE REMAINS ELEVATED IN BED W/ PILLOWS. URINAL EMPTIED. pt STATES, "THEY'RE NOT LETTING ME GET MY LIQUIDS". pt REMINDED HE HAS HAD DIET SODA, WATER, AND MULTIPLE JELLOS DURING THE NIGHT. pt REFERRING TO NOT BEING GIVEN MILK, pt EDUCATED MILK IS NOT AVAILABLE ON THE FLOOR FRIDGE IS EMPTY OF MILK AND pt IS DIABETIC, ENCOURAGED TO DRINK WATER. CALL LIGHT IN REACH.
--- NOTE | 2023-11-29 04:30 | NUR ---
pt RESTING IN BED WITH EYES CLOSED. RR EVEN AND UNALBORED, NO DISTRESS NOTED. CALL LIGHT IN REACH.
--- NOTE | 2023-11-29 06:02 | NUR ---
call light answered, pt not clear with needs. in room to asses, pt remains drowsy but then awakens and asks for food. vss and i&o's complete, central line dressing c/d/i and remains hep locked. pt also had urine spilled so partial bed change done and danyelle care completed. prn bs taken, result of 179. no further needs, allevyn to coccyx c/d/i. pt able to turn self in bed. call light in reach.
--- NOTE | 2023-11-29 07:20 | NUR ---
REPORT RECEIVED FROM MILLED RUBBER TENDER JOHNY WHITE. PATIENT IS RESTING WITH EYES CLOSED AND RESPIRATIONS ARE EVEN AND UNLABORED. PATIENT RIGHT GREAT TOE ASSESSED. PATIENT WITH AT THE BEDSIDE ASLEEP IN THE RECLINER AT THIS TIME. CALL LIGHT AND PERSONAL BELONGINGS ARE WITHIN REACH.
--- NOTE | 2023-11-29 09:00 | NUR ---
0800 AND 0900 MEDICATIONS ADMINISTERED PER THE EMAR. CAME TO ASSESS PATIENT EARLY THIS MORNING. FULL ASSESSMENT COMPLETE AND DOCUMENTED IN THE CHART. PATIENT ON ROOM AIR AND LUNG SOUNDS ARE CLEAR IN ALL LUNG RIVER BILATERALLY. PATIENT ON TELE NUMBER 4, NORMAL S1 AND S2 AUSCULTATED. HR HAS BEEN BETWEEN 100-115. PATIENT BOWEL TONES ARE ACTIVE IN ALL FOUR QUADRANTS. PATIENT SCROTUM IS RED AND SWOLLEN AND USES A GRADUATED CYLINDER AT THE BEDSIDE TO URINATE. PATIENT IV SITE FLUSHES WELL WITH 10 ML NORMAL SALINE. DRESSING IS CLEAN, DRY, AND INTACT. CENTRAL LINE DRESSING IS CLEAN, DRY, AND INTACT. ALL PORTS WITH BRISK BLOOD RETURN AND FLUSHED WITH 10 ML NORMAL SALINE. CENTRAL LINE IS HEPARIN LOCKED. PATIENT IS ON A 60 G CARB DIET. PATIENT WITH RLE CELLULITIS. REDNESS IS OUTLINED. DRESSING CHANGE AND WOUND CARE COMPLETE. PATIENT TOLERATED WELL. THE RLE WOUNDS WITH BACITRACIN AND DRESSING CHANGE COMPLETE PER THE ORDER. LLE WITH MEDIHONEY AND ALEVYNS IN PLACE. PATIENT TOLERATED WELL. PATIENT IS AT THE BEDSIDE AND SLEEPING ON AND OFF. PATIENT STATED NO FURTHER NEEDS AT THIS TIME. CALL LIGHT AND PERSONAL BELONGINGS ARE WITHIN REACH.
--- NOTE | 2023-11-29 11:59 | NUR ---
INSULIN ADMINISTERED PER THE EMAR. PATIENT SALINE LOCKED AFTER THE IV ANTIBIOTICS FINISHED RUNNING. MEAL VOUCHERS GIVEN TO THE PATIENTS . PATIENT STATED NO FURTHER NEEDS AT THIS TIME. CALL LIGHT AND PERSONAL BELONGINGS ARE WITHIN REACH.
--- NOTE | 2023-11-29 13:50 | NUR ---
PATIENT RIGHT LOWER EXTREMITY WITH REDNESS AND WARMTH. DRESSING IS CLEAN, DRY, AND INTACT. PATIENT RLE IS ELEVATED ON TWO PILLOWS WITH A CHUX UNDERNEATH. CHUX UNDERNEATH THE LOWER EXTREMITTIES WITH NO DRAINAGE NOTED. LLE DRESSING FELL OFF. NEW ALEVYN PLACED ON THE LEFT LOWER EXTREMITIES. SMALL AMOUNT OF SEROSANGUINOUS DRAINAGE NOTED ON THE ALEVYN. PATIENT TOLERATED DRESSING CHANGE WELL. CAPILLARY REFILL IS LESS THAN 3 SECONDS IN THE RLE AND GREATER THAN 3 SECONDS IN THE LLE. PATIENT WITH NO COMPLAINTS OF PAIN. GABAPENTIN ADMINISTERED PER THE EMAR. PATIENT STATED NO FURTHER NEEDS AT THIS TIME. CALL LIGHT AND PERSONAL BELONGINGS ARE WITHIN REACH.
--- NOTE | 2023-11-29 15:27 | NUR ---
PATIENT IS RESTING IN BED WITH EYES CLOSED AND RESPIRATIONS ARE EVEN AND UNLABORED. PATIENT CALL LIGHT AND PERSONAL BELONGINGS ARE WITHIN REACH.
--- NOTE | 2023-11-29 18:47 | NUR ---
PATIENT LLE DRESSING CHANGED DUE TO IT COMING OFF. NEW ALEVYN IN PLACE AND WRAPPED WITH A LITTLE BIT OF COBAN TO KEEP IT INTACT. PATIENT IS AT THE BEDSIDE. PATIENT AND FAMILY STATED NO FURTHER NEEDS AT THIS TIME. CALL LIGHT AND PERSONAL BELONGINGS ARE WITHIN REACH.
--- NOTE | 2023-11-29 19:34 | NUR ---
RECEIVED REPORT FROM DAY SHIFT RN. PATIENT IS RESTING IN BED WITH EYES CLOSED, RR 17. CALL LIGHT IN REACH.
--- NOTE | 2023-11-29 21:44 | NUR ---
PATIENTS VITALS TAKEN AND RECORDED. URINAL EMPTIED. INTAKE AND OUTPUT RECORDED. PATIENTS PM MEDS GIVEN PER ORDER. PATIENT RATES PAIN AT A 9/10 IN RLE, PRN PAIN MEDICATION GIVEN PER ORDER. PATIENTS IV FLUSHED AND SL PER ORDER. PATIENTS IJ HAS GOOD BLOOD RETURN IN ALL LUMENS, FLUSHED WITH SALINE, AND HEP LOCKED. PATIENT PROVIDED WITH FRESH WATER AND A SUGAR FREE KAVITA. PATIENTS ASSESMENT COMPLETED. PATIENTS DRESSING ON RLE AND LLE ARE INTACT. MINIMLA DRAINAGE NOTED ON RLE DRESSING. PATIENT DENIES ANY FURTHER NEEDS. CALL LIGHT IN REACH. PATIENTS ASLEEP IN RECLINER.
--- NOTE | 2023-11-29 22:23 | EKG ---
[facility] [address] [facility] [place] [address] Signed Sinus tachycardia Possible Left atrial enlargement Low voltage QRS Inferior infarct , age undetermined T wave abnormality, consider lateral ischemia Abnormal ECG When compared with ECG of 27-NOV-2023 06:28, premature ventricular complexes are no longer present Nonspecific T wave abnormality has replaced inverted T waves in Inferior leads T wave inversion no longer evident in Anterior leads Confirmed by Dada Ayala MD () on 11/29/2023 10:23:22 PM Electronically Signed By: DADA AYALA MD 11/29/232222 PATIENT NAME: KAYKAY LAWSON Electrocardiogram DATE OF : 72 PHYSICIAN: DADA AYALA MD REPORT #: [id number] REPORT IS CONFIDENTIAL AND NOT TO BE RELEASED WITHOUT AUTHORIZATION
--- NOTE | 2023-11-29 23:25 | NUR ---
sugar free chocolate pudding provided per patient's request.
[2023-11-30] VITALS (7 sets, daily range): BP systolic 98–117; BP diastolic 67–80
--- NOTE | 2023-11-30 00:05 | NUR ---
PATIENT IS RESTING IN BED WITH EYES CLSOED, RR17. HR ON TELE IS 89. CALL LIGHT IN REACH.
--- NOTE | 2023-11-30 01:26 | NUR ---
PATIENT ASKED FOR SNACKS LIKE CRACKERS AND SOMETHING TO DRINKS. PROVIDED DIET KAVITA AND RAFIA CRACKERS AND PEANUT BUTTER. EMPTIED GRADUATED CYLINDER WITH 325ML JIMMY URINE. TELE BATTERY CHANGED. NO OTHER NEEDS AT THIS TIME. SLEEPING IN THE CHAIR.
--- NOTE | 2023-11-30 02:11 | NUR ---
PATIENTS VITALS TAKEN AND RECOREDED. PATIENT IS RESTIN BED WATCHING TV. RLE ELEVATED ON PILLOW. PATIENTS PROVIDED WITH SNACK. PATIENT DENIES ANY FURTHER NEEDS. CALL LIGHT IN REACH.
--- NOTE | 2023-11-30 04:22 | NUR ---
PATIENT IS RESTING IN BED WITH EYES CLSOED, RR15. CALL LIGHT IN REACH.
[2023-11-30 05:56] LABS: HEMATOCRIT 34.1 % (35.0-50.0); HEMOGLOBIN 10.4 g/dL (12.0-18.0); MCH 24.8 (27-36); MCHC 30.5 g/dl (30-36); MCV 81.5 fl (81-99); PLATELET COUNT 298 K/uL (140-440); RBC 4.18 M/ul (4.3-5.7); RDW 22.6 (10.5-15.0)
--- NOTE | 2023-11-30 06:01 | NUR ---
PATIENT CALLED AND REQUESTED SNACKS. SNACKS PROVIDED. PATIENTS VITALS TAKEN AND RECORDED. PATIENTS INTAKE AND OUTPUT RECORDED. PATIENTS LABS DRAWN PER PROTOCOL AND SENT TO LAB. PATIENTS CENTRAL LINE SL X3 LUMENS. PATIENTS IS IN RECLINER. PATIENT AND DENY ANY NEEDS. CALL LIGHT IN REACH.
[2023-11-30 06:12] LABS: ALBUMIN 1.9 g/dL (3.4-5.0); ALBUMIN/GLOBULIN RATIO 0.42 (1.1-2.4); ANION GAP 8.1 (7-21); BILIRUBIN, TOTAL 1.3 ng/dL (0.2-1.0); BUN/CREATININE RATIO 32.38 (6.0-28.6); CALCIUM 7.7 mg/dL (8.5-10.1); CREATININE, SERUM 1.05 mg/dL (0.70-1.30); MAGNESIUM 1.4 mg/dL (1.8-2.4); POTASSIUM 4.1 mmol/L (3.5-5.1); PROTEIN, TOTAL 6.4 g/dL (6.4-8.2)
[2023-11-30 06:14] LABS: BANDS, MANUAL DIFF 4; BASOPHILS, MANUAL DIFF 1; LYMPHOCYTES, MANUAL DIFF 10; MONOCYTES, MANUAL DIFF 5; NEUTROPHILS, MANUAL DIFF 80
--- NOTE | 2023-11-30 07:15 | NUR ---
REPORT RECEIVED FROM SALES REPRESENTATIVE UNIFORMS RN ROHINI. PATIENT EXPRESSED FRUSTRATION ABOUT THE TIMING OF DINNER LAST NIGHT AND HOW THEY WERE NOT GIVEN MILK. PATIENT EXPLAINED THAT WE DO NOT HAVE CONTROL OF WHEN DINNER COMES UP AND THAT IT IS TYPICALLY UP TO THE PATIENT AROUND FIVE. IN TERMS OF THE MILK SITUATION THERE WAS NONE IN OUR FRIDGE AT THE TIME AND WE WERE WAITING FOR MORE TO COME UP. PATIENT IS AT THE BEDSIDE. ROHINI DUMPED THE PATIENTS URINAL. PATIENT STATED NO FURTHER NEEDS AT THIS TIME. CALL LIGHT AND PERSONAL BELONGINGS ARE WITHIN REACH.
--- NOTE | 2023-11-30 09:29 | NUR ---
0800 AND 0900 MEDICATIONS ADMINISTERED PER THE EMAR. PATIENT FULL ASSESSMENT COMPLETE AND DOCUMENTED IN THE CHART. PATIENT IS ON ROOM AIR AND LUNG SOUNDS ARE CLEAR BILATERALLY IN ALL LUNG RIVER. PATIENT IS ON TELEMETRY NUMBER 4 AND HAS BEEN IN SINUS RHYTHM. PATIENT WITH NORMAL S1 AND S2 ON AUSCULTATION. BOWEL TONES ARE ACTIVE IN ALL FOUR QUADRANTS. PATIENT ATE 100% OF BREAKFAST THIS MORNING. RADIAL PULSES ARE STRONG BILATERALLY. NORMAL STRENGTH NOTED IN THE UPPER EXTREMITIES AND WEAKNESS IN THE LOWER EXTREMITIES BILATERALLY. PATIENT LLE WITH ALEVYN AND COBAN IN PLACE. NO DRAINAGE NOTED. PATIENT LLE IS COOL AND DRY. RLE IS RED AND WARM AND THE REDNESS IS WITHIN THE PREVIOUSLY MARKED MARGINS. WOUND CARE ASSESSMENT COMPLETE AND DOCUMENTED IN THE FULL ASSESSMENT. PATIENT WITH AT THE BEDSIDE. PATIENT PERIPHERAL IV SITE IS CLEAN, DRY, AND INTACT. ROCEPHIN IS INFUSING AT THIS TIME. IJ IS HEPARIN LOCKED. PATIENT TOLERATED WELL. PATIENT STATED NO FURTHER NEEDS AT THIS TIME. CALL LIGHT AND PERSONAL BELONGINGS ARE WITHIN REACH.
--- NOTE | 2023-11-30 09:55 | NUR ---
PATIENT ANTIBIOTIC IS COMPLETE AND THE IVPB MAGNESIUM IS NOW INFUSING. URINAL EMPTIED AND IS BACK AT THE BEDSIDE. PATIENT IS SITTING IN THE CHAIR. PATIENT STATED NO FURTHER NEEDS AT THIS TIME. CALL LIGHT AND PERSONAL BELONGINGS ARE WITHIN REACH.
--- NOTE | 2023-11-30 14:42 | NUR ---
UR NOTE MCG CELLULITIS (ISC) INPATIENT 11/28/23 VARIANCE GL DAY 2
--- NOTE | 2023-11-30 15:10 | NUR ---
PATIENT HAD ONE LARGE BOWEL MOVEMENT ON THE BEDSIDE COMMODE. PATIENT WITH 2 PERSON ASSIST AND UNSTEADY ON THEIR FEET DUE TO CELLULITIS IN THE RIGHT LOWER EXTREMITY. BEDDING AND LINENS ARE CHANGED. PATIENT GIVEN A BED BATH AND NEW GOWN PLACED ON THE PATIENT. PATIENT GIVEN PRN OXYCODONE AND SCHEDULED GABAPENTIN ONCE BACK IN THE BED. PATIENT STATED PAIN WAS 9/10 AFTER GETTING TO THE BEDSIDE COMMODE. WOUND CARE AND DRESSING CHANGE COMPLETE ON THE RIGHT LOWER EXTREMITY. OLD DRESSING WITH SMALL AMOUNT OF YELLOW DRAINAGE ON THE ALEVYNS. PATIENT TOLERATED WELL. NEW DRESSING WITH WOUND CLEANSER, BACITRACIN, ALEVYN FOAM PADDING WITH ADHESIVE BORDERS, GAUZE WRAP, AND TIGRE WRAP. PATIENT WITH NEW CHUX UNDERNEATH THE RLE. RLE IS RED AND WARM WITH THE REDNESS WITHIN THE PREVIOSLY MARKED BORDERS. LLE DRESSING IS CLEAN, DRY, AND INTACT. VITAL SIGNS AND INTAKE AND OUTPUT VALUES ARE DOCUMENTED IN THE CHART. PATIENTS BED LOWERED. PATIENT STATED NO FURTHER NEEDS AT THIS TIME. CALL LIGHT AND PERSONAL BELONGINGS ARE WITHIN REACH.
--- NOTE | 2023-11-30 17:23 | NUR ---
PATIENT VITALS SIGNS DOCUMENTED IN THE CHART AND 1700 INSULIN ADMINISTERED PER THE EMAR. PATIENT WITH COMPLAINTS OF CHEST PAIN WITH BREATHING SINCE HE GOT UP AND WENT TO THE BATHRROM THIS AFTERNOON. PATIENT AND FAMILY STATED NO FURTHER NEEDS AT THIS TIME. CALL LIGHT AND PERSONAL BELONGINGS ARE WITHIN REACH. NOTIFIED OF THE CHCEST PAIN OVER THE PHONE. NO NEW ORDERS AT THIS TIME. CALL ENDED.
--- NOTE | 2023-11-30 22:32 | EKG ---
[facility] [address] [facility] [place] [address] Signed Sinus tachycardia Inferior infarct (cited on or before 29-NOV-2023) T wave abnormality, consider lateral ischemia Prolonged QT Abnormal ECG When compared with ECG of 29-NOV-2023 08:50, Nonspecific T wave abnormality, worse in Inferior leads Confirmed by Dada Ayala MD () on 11/30/2023 10:31:52 PM Electronically Signed By: DADA AYALA MD 11/30/232231 PATIENT NAME: KAYKAY LAWSON Electrocardiogram DATE OF : 72 PHYSICIAN: DADA AYALA MD REPORT #: [id number] REPORT IS CONFIDENTIAL AND NOT TO BE RELEASED WITHOUT AUTHORIZATION
[2023-12-01] VITALS (9 sets, daily range): BP systolic 101–114; BP diastolic 68–85
--- NOTE | 2023-12-01 02:18 | NUR ---
DRESSING CDI, DRESSING CHARTING PER REPORT, DID NOT REMOVE NEW DRESSINGS
--- NOTE | 2023-12-01 03:06 | NUR ---
PT FEET ARE RED AND WARM BL, HE WILL NOT LET ME MOVE DRESSING TO ASSESS FOR PULSES, STATES HE CANT FEEL HIS FEET, HAS NUMBNESS ADN TINGLING, BUT WHEN I BARELY TOUVH THEM HE MOANS AND C/O PAIN. BL LEGS ARE SWOLLEN, RED AND WARM. R<L. PT HAD OXY FOR PAIN. RLE IS ELEVATED ON PILLOW. REFUSED TO PUT LLE ON PILLOW.
--- NOTE | 2023-12-01 06:27 | NUR ---
WOUND CARE CHARTING/MEASURING PER WOOUND NURSE, AND PER REPORT
--- NOTE | 2023-12-01 07:10 | NUR ---
HANDOFF REPORT RECEIVED FROM HOLIDAY DETECTOR OPERATOR RN. PT SLEEPING, LEFT UNDSITURBED.
[2023-12-01 08:44] LABS: HEMATOCRIT 33.3 % (35.0-50.0); HEMOGLOBIN 10.1 g/dL (12.0-18.0); MCH 25.1 (27-36); MCHC 30.4 g/dl (30-36); MCV 82.7 fl (81-99); PLATELET COUNT 290 K/uL (140-440); RBC 4.03 M/ul (4.3-5.7); RDW 22.7 (10.5-15.0)
[2023-12-01 08:57] LABS: ALBUMIN/GLOBULIN RATIO 0.43 (1.1-2.4); ANION GAP 9.4 (7-21); BILIRUBIN, TOTAL 1.3 ng/dL (0.2-1.0); BUN/CREATININE RATIO 27.1 (6.0-28.6); CALCIUM 7.5 mg/dL (8.5-10.1); CREATININE, SERUM 1.07 mg/dL (0.70-1.30); MAGNESIUM 1.5 mg/dL (1.8-2.4); POTASSIUM 4.4 mmol/L (3.5-5.1); PROTEIN, TOTAL 6.6 g/dL (6.4-8.2)
[2023-12-01 09:12] LABS: BANDS, MANUAL DIFF 9; LYMPHOCYTES, MANUAL DIFF 19; MONOCYTES, MANUAL DIFF 4; NEUTROPHILS, MANUAL DIFF 68
--- NOTE | 2023-12-01 09:15 | NUR ---
PT RESTING IN BED EATING BREAKFAST. PT ON ROOM AIR, LUNGS WITH CRACKLES BLL, DENIES SOB. PT RATING PAIN 7/10 TO LEFT GROIN AND LEG, GIVEN 5 MG PO OXYCODONE, DISCUSSED DRESSING CHANGE IN 1 HR, PT AGREEABLE. PT WITH REDNESS TO RIGHT FOOT, DRESSING CDI. BLOOD DRAWN FROM R IJ, ALL LINES WITH BLOOD RETURN AND FLUSHED, DISTAL PORT INFUSING ABX, ALL OTHER PORTS HEP LOCKED. DISCUSSED PLAN OF CARE FOR THE DAY WITH PT. PT DENIES OTHER NEEDS AT THIS TIME.
[2023-12-01 09:17] LABS: BASOPHILS, MANUAL DIFF 0; EOSINOPHILS, MANUAL DIFF 0
--- NOTE | 2023-12-01 10:06 | NUR ---
DR. AYALA NOTIFIED OF BLL CRACKLES, NEW ORDER FOR LASIX ENTERED.
--- NOTE | 2023-12-01 11:15 | NUR ---
DRESSING CHANGE COMPLETED TO RIGHT LOWER LEG AND FOOT ULCERS. WOUND BEDS 100% CLEAN NON GRANULATING, WOUND EDGES MACERATED. SKIN PROTECTANT SPRAY APPLIED, BACITRACIN APPLIED TO OPEN ULCERS, COVERED WITH ADAPTIC AND GAUZE ROLL. PT TOLERATED WELL. ASSISTED TO USE URINAL.
--- NOTE | 2023-12-01 12:40 | NUR ---
PT GIVEN 3 UNITS SS HUMALOG FOR BG 180. PT WITH GOOD URINE OUTPUT AFTER LASIX DOSE. PT DENIES OTHER NEEDS AT THIS TIME.
--- NOTE | 2023-12-01 14:58 | NUR ---
PT RESTING IN BED. PT LUNG SOUNDS WITH CRACKLES IN BLL, IMPROVED FROM PREVIOUS ASSESSMENT. PT DENIES NEEDS AT THIS TIME.
--- NOTE | 2023-12-01 15:15 | NUR ---
Update from Dr. Liz. Pt is not ready for dc today. Will fu tomorrow.
--- NOTE | 2023-12-01 16:04 | NUR ---
1554 - VERBAL REPORT RECEIVED FROM JOHNY TUTTLE. 1604 - PT RESTS IN BED, AWAKE AND ALERT. DRESSING TO RLE C/D/I. IJ DRESSING C/D/I, NO REDNESS OR SWELLING NOTED. CALL LIGHT IN REACH. NO REQUESTS AT THIS TIME.
--- NOTE | 2023-12-01 18:14 | NUR ---
PT RESTS IN BED WITH SPOUSE AT BEDSIDE. DRESSING TO RLE REMAINS C/D/I. REDNESS ON RLE IS BELOW THE KNEE AND RECEDING BELOW THE PREVIOUSLY MARKED BORDERS. CALL LIGHT IN REACH, NO REQUESTS AT THIS TIME.
--- NOTE | 2023-12-01 20:33 | NUR ---
pt irritable, non compliant with assessments. declined to do CDB or cough while I was assessing lungs, then coughed in my face. "Ja hurting, I dont want you to do anything else", when asked if he was declining care care he said yes. charge nurse notified and load out supervisor will be notified. CBG 198, pt wanted regular juice and snacks, instructed on diabetic diet parameters, non compliant, angry "They always give me what I want, what can you do it"
--- NOTE | 2023-12-01 21:08 | NUR ---
CALL LIGHT ANSWERED. pt UPSET WITH RN REGARDING SNACKS ALLOWED WELL INSTRUCTING pt TO COUGH WHILE LISTENING TO LUNG SOUNDS. EDUCATION PROVIDED ON DIABETIC DIET AND SODIUM INTAKE. pt AGREEABLE TO CONTINUE WITH CURRENT RN, DISCUSSION WITH pt, REQUESTING NO COUGHING DUE TO HERNIA PAIN WHEN RN LISTENING TO LUNG SOUNDS. PRESENT IN ROOM. WHEN RN ENTERS ROOM pt DRINKING ENERGY DRINK AND EATING RAFIA CRACKERS. REQUESTING BANDAGE FOR RIGHT ARM SORE. BANDAID PROVIDED. ENCROUAGED TO SEE DOCTOR, STATES ALREADY HAS. pt HAS CALL LIGHT IN REACH. LEGS ELEVATED ON PILLOWS.
--- NOTE | 2023-12-01 21:24 | NUR ---
pt and nurse apologized to each other and verbal work contract stated. Lungs clear dim at bases after CDB, abd soft, edematous scrotum, deressing R foot, R IJ patent, mag rider stated. CBG 198 received 3 units SSI, has been eating foods not on diabetic diet, not very receptive, will continue to teach.medicated with Oxycodone 5mg po c/o 07/26 scrotal and r leg pain. unable to do a better assessment of toes as he started loudly moanaing and screaming about toes being painful. pink colored, R foot slightly colder than L and decreaed redness noted, had bm
[2023-12-02] VITALS (7 sets, daily range): BP systolic 100–114; BP diastolic 57–78
--- NOTE | 2023-12-02 00:05 | NUR ---
DIET KAVITA GIVEN ON REQUEST, SITTING UP IN BED, R FOOT DRESSING INTACT, NO CHANGES FROM EARLIER ASSESSMENT
--- NOTE | 2023-12-02 01:01 | NUR ---
RESTING, EYES CLOSED, NO DISTRESS, DRESSING INTACT, ELEVATED. DRESSING IN PLACE
--- NOTE | 2023-12-02 02:45 | NUR ---
Resting, eyes closed, no s/sx distress or pain. dressing R foot intact
--- NOTE | 2023-12-02 02:45 | NUR ---
PT HAS SLEPT, CURRENTLY AWAKE. APPEARS TO BE UNER THE INFLUENCE. DROWSY GAZE, MUMBLING SPEECH, MOVING HEAD W/O DIRECCION. VERY CALM. IN ROOM RUBBING LOTION INTO LE. HAD SPRAYED PERFUME IN ROOM. PT AND DENIED THAT PT IS UNDER THE INFLUENCE. TELE#[address], SINUS TACHY, DENIES CP. REDNESS OF LEGS NO CHANGES, SCROTAL EDEMA NO CHANGES. DRESSING R FOOT INTACT
--- NOTE | 2023-12-02 05:35 | NUR ---
very calm and sleepy at this time, speech still a little bit slurred. calm and cooperative. Blood draw done from [facility], procedure explained, tolerated well.
[2023-12-02 05:38] LABS: HEMATOCRIT 30.9 % (35.0-50.0); HEMOGLOBIN 9.4 g/dL (12.0-18.0); MCH 25.2 (27-36); MCHC 30.3 g/dl (30-36); MCV 82.9 fl (81-99); PLATELET COUNT 313 K/uL (140-440); RBC 3.73 M/ul (4.3-5.7); RDW 23.3 (10.5-15.0)
--- NOTE | 2023-12-02 05:47 | NUR ---
PT SLEEPY, DROWSY, SLURRED SPEECH. PT WAS VERY DROWSY EARLIER AND APPEARED TO BE UNDER THE INFLUENCE. BOTH HIM AND DENIED IT. NO RESPIRATORY DISTRESS, PLEASANT AND COOPERATIVE AT THIS TIME. FOLLOWING INSTRUCTIONS WELL. LUNGS HAD CRACKLES AT BASES AT BEGINING OF SHIFT. IRRITABLE, DECLINED TO DO CDB GOT VERY IRRITABLE AND INAPPROPRIATE WITH THIS NURSE, CHARGE NURSE AND GROCERY CLERK STOCKING TALKED TO PT, CALMED DOWN AND WAS COOPERATIVE WITH REST OF ASSESSMENTS. RIJ TRIPLE LUMEN CENTRAL LINE, PATENT.FLUSHES EASILY. SCROTUM VERY EDEMATOUS AND DUSKY LOOKING, MUCH IMPROVED FROM LAST STAY. DECLINED TO HAVE IT ELEVATED WITH TOWELS. R FOOT DRESSING IN PLACE, IMPROVED, DECREASED EDEMA AND REDNESS NOTED FROM PREVIOUS MARKINGS. HAS ELEVATED OFF AND ON THIS SHIFT. ON 60 GRAM CARBS NON COMPLIANT WITH DIETARY RESTRICTIONS, HAS ASKED FOR MULTIPLE SNACKS. VOIDING QS DARK YELLOW URINE. TOLERATING FLUIDS WELL, NO N/V, WAS MEDICATED X1 PER C/O PAIN, MED EFFECTIVE. PT WAS NOT DROWSY OR HAD SLURRED SPEECH WHEN TAKING THIS MED OR EVEN 1-2 HRS AFTER TAKING PAIN MED. IN ROOM
[2023-12-02 05:55] LABS: ALBUMIN 1.8 g/dL (3.4-5.0); ALBUMIN/GLOBULIN RATIO 0.43 (1.1-2.4); ANION GAP 8.8 (7-21); BILIRUBIN, TOTAL 1.2 ng/dL (0.2-1.0); BUN/CREATININE RATIO 30.2 (6.0-28.6); CALCIUM 7.1 mg/dL (8.5-10.1); CREATININE, SERUM 0.96 mg/dL (0.70-1.30); MAGNESIUM 1.5 mg/dL (1.8-2.4); POTASSIUM 3.8 mmol/L (3.5-5.1)
[2023-12-02 06:16] LABS: EOSINOPHILS, MANUAL DIFF 1; LYMPHOCYTES, MANUAL DIFF 22; MONOCYTES, MANUAL DIFF 5; NEUTROPHILS, MANUAL DIFF 72
--- NOTE | 2023-12-02 06:17 | NUR ---
DR BRIAN NOTIFIED OF CRITICAL LOW CK VALUE OF 15, NO NEW ORDERS
--- NOTE | 2023-12-02 07:17 | NUR ---
VERBAL REPORT RECEIVED FROM JOHNY MOE. PT AWAKE IN BED, DROWSY. CALL LIGHT IN REACH, NO REQUESTS AT THIS TIME.
--- NOTE | 2023-12-02 08:54 | NUR ---
WHITE PORT OF IJ FLUSHES EASILY WITH 10CC OF NS, NO BLOOD RETURN ACHEIVED. LINE FLUSHED WITH 50 UNITS OF HEPARIN. BLUE PORT OF IJ FLUSHES EASILY WITH 10CC OF NS, BLOOD RETURN NOTED, PORT FLUSHED WITH 50 UNITS OF HEPARIN. BROWN PORT FLUSHES EASILY WITH 10CC OF NS, BLOOD RETURN NOTED, INFUSION STARTED WITH THIS LINE.
--- NOTE | 2023-12-02 10:15 | NUR ---
MAG INFUSION COMPLETE. BROWN PORT FLUSHED WITH 10CC OF NS FOLLOWED BY 50 UNITS OF HEPARIN.
--- NOTE | 2023-12-02 10:15 | NUR ---
SPOKE WITH PT REGARDING STAFF REPORTING A FUNNY SMELL IN ROOM. ASKED HIM IF HE HAD SMOKED A VAPE OR ANYTHING ELSE IN BATHROOM. PT DENIES. STATES HE HAS A VAPE BUT HAS NOT USED IT.
--- NOTE | 2023-12-02 12:08 | NUR ---
UR NOTE MCG CELLULITIS (ISC) INPATIENT 11/30/23 MET GL DAY 2 12/01/23 VARIANCE GL DAY 3
--- NOTE | 2023-12-02 13:40 | NUR ---
PATIENT RESTING IN BED, VITALS AND I&OS CHARTED. WARM BLANKET PROVIDED. PATIENT HAS A BOTTLE OF "AXE" BODY SPRAY IN BR THAT HE HAS BEEN USING AIR FRESHENER AFTER BM. CALL LIGHT IN EASY REACH, PATIENT RESTING AGAIN AT THIS TIME, EYES CLOSED
--- NOTE | 2023-12-02 13:41 | NUR ---
PATIENT RESTING IN BED, EYES CLOSED. WOKE TO VOICE. VITALS KALEIGH&OS CHARTED. CALL LIGHT AND PERSONAL ITEMS IN EASY REACH
--- NOTE | 2023-12-02 14:50 | NUR ---
In and spoke with pt with Dr. Foster. discussed dc today. Pt requests to wait until tomorrow as he is not prepared. We attempted to discuss plan as pt and are homeless. I let him know, he could dc later today, close to the time the [facility]. Pt feels he has been blind sided. explained that is not our intention, but he is at a time where he can dc. Pt does not want to dc to the [facility]. He also confirms he cannot return to the [facility] in as he was "kicked out" for not following the rules. He would like to wait until tomorrow and dc to [facility]. He states he is working with [facility] and the plan is placement to a [facility] rehab. He also states he cannot walk, but does tell Dr. Foster he is able to walk back and forth to the bathroom. Plan is to dc tomorrow to [facility]. I will follow up with [facility] to check if they plan on rehab placement for this pt.
--- NOTE | 2023-12-02 15:01 | NUR ---
Called and spoke with PAIGE, gave pts name and date of . PAIGE states there is not a plan for this pt to be placed. Due to his medical problems rehabs will not accept him. They have had many conversations he must stop using drugs to improve his health. Pt and frequently request placement, but this is not in the works. I returned and updated pt. to my conversation with PAIGE. Plan for dc is to [facility] [place] tomorrow morning.
--- NOTE | 2023-12-02 15:37 | NUR ---
DRESSING TO RIGHT LATERAL FOOT WOUNDS CHANGED. OLD DRESSING REMOVED. MODERATE AMOUNT OF SEROSANGUINEOUS AND CLEAR GREEN DRAINAGE NOTED ON OLD DRESSING. WOUND BEDS PINK AND MOIST. WOUNDS CLEANSED WITH WOUND CLEANSER AND PATTED DRY. SKIN PROTECTANT APPLIED TO PERIWOUND SKIN BACITRACIN OINTMENT APPLIED TO WOUNDS FOLLOWED BY ADAPTIC AND SECURED WITH GAUZE ROLL AND TIGRE WRAP. DRESSING CHANGE TO LEFT POSTERIOR LEG WOUND CHANGED. OLD DRESSING REMOVED. WOUND CLEANSED WITH WOUND CLEANSER AND PATTED DRY. WOUND BASE IS PINK AND MOIST. MEDIHONEY APPLIED TO WOUND BASE AND COVERED WITH ADHERENT FOAM DRESSING. DRESSING PROTECTED BY TIGRE WRAP. PT TOLERATED DRESSING CHANGE WELL WITH PAIN MEDICATION RECEIVED PRIOR TO PROCEDURE.
--- NOTE | 2023-12-02 19:19 | NUR ---
Patient resting in bed, no complaints, no noted distress, report provided by dayshift RN, call light within reach.
--- NOTE | 2023-12-02 20:25 | NUR ---
Patient continues resting in bed, voiding without difficulty, VSS except sinus tach on HR and patient with Tele intact, Denies SOB or CP, Scotum remains swollen, Legs bilat ignacio with edema 1+. Much improved since last admit. Patient denying discomfort at this time, Blood sugar 230 and 5 units insulin per SS given.
--- NOTE | 2023-12-02 22:23 | NUR ---
Patient resting at this time with lights out and eyes closed, no noted distress, RR even and unlabored. call light within reach.
--- NOTE | 2023-12-03 00:32 | NUR ---
Patient resting with eyes closed, awakens briefly when RN enters room but then back to sleep, significant other in room, Patient appears comfortable and in no distress, RR lisa and unlabor, no c/o pain.
--- NOTE | 2023-12-03 01:31 | NUR ---
Patient awake. Requested and given a pudding. no other request, assessment without change.
--- NOTE | 2023-12-03 02:21 | NUR ---
Patients light is on, moaning, requested and given pain medication for leg and scrotal pain. lower leg dressings intact, no change in assessment, call light within reach.
--- NOTE | 2023-12-03 04:27 | NUR ---
Patient resting in bed with eyes closed, appears comfortable, no distress, RR even and unlabored.
--- NOTE | 2023-12-03 05:28 | NUR ---
Patient a sleep on and off through the night, VSS, medicated for pain x1. lower extremetiy dressings intact,clean and dry, CMS intact. Central line intact, clean and dry. Tele intact.
[2023-12-03 06:17] VITALS: BP 106/70
--- NOTE | 2023-12-03 06:19 | NUR ---
Patient is awake now, His is in the bed with him, VSS, Patient appears comfortable. no compliants.
--- NOTE | 2023-12-03 07:28 | NUR ---
Labs drawn from central line by Trish MCCLAIN without difficulty and sent to lab.
[2023-12-03 07:32] LABS: HEMATOCRIT 30.5 % (35.0-50.0); HEMOGLOBIN 9.3 g/dL (12.0-18.0); MCH 25.3 (27-36); MCHC 30.5 g/dl (30-36); MCV 83.1 fl (81-99); PLATELET COUNT 342 K/uL (140-440); RBC 3.67 M/ul (4.3-5.7); RDW 23.1 (10.5-15.0)
[2023-12-03 07:52] LABS: ALBUMIN 2.1 g/dL (3.4-5.0); ALBUMIN/GLOBULIN RATIO 0.46 (1.1-2.4); BILIRUBIN, TOTAL 1.1 ng/dL (0.2-1.0); BUN/CREATININE RATIO 39.08 (6.0-28.6); CALCIUM 7.6 mg/dL (8.5-10.1); CREATININE, SERUM 0.87 mg/dL (0.70-1.30); PROTEIN, TOTAL 6.7 g/dL (6.4-8.2)
[2023-12-03 08:01] LABS: BANDS, MANUAL DIFF 9; BASOPHILS, MANUAL DIFF 0; EOSINOPHILS, MANUAL DIFF 0; LYMPHOCYTES, MANUAL DIFF 20; MONOCYTES, MANUAL DIFF 8; NEUTROPHILS, MANUAL DIFF 62
[2023-12-03 09:38] VITALS: BP 104/76
--- NOTE | 2023-12-03 09:41 | NUR ---
recieved pt report from nurse at 0717 pt was resting with eyes closed and even unlabored breathing noted. pt currently awake A+O WATCHING TELEVISION AND ATE BREAKFAST. NO OTHER CARES NEEDED OR REQUESTED AT THIS TIME. CALL LIGHT WITHIN REACH
--- NOTE | 2023-12-03 12:17 | EKG ---
[facility] [address] [facility] [place] [address] Signed Sinus tachycardia with occasional premature ventricular complexes Possible Left atrial enlargement Left axis deviation T wave abnormality, consider inferolateral ischemia Prolonged QT Abnormal ECG When compared with ECG of 26-NOV-2023 20:02, (Unconfirmed) No significant change was found Confirmed by Sherice Arreola MD ([id number]) on 11/28/2023 4:21:54 PM Electronically Signed By: SHERICE ARREOLA 12/03/23 1217 PATIENT NAME: KAYKAY LAWSON Electrocardiogram DATE OF : 72 PHYSICIAN: SHERICE ARREOLA REPORT #: [id number] REPORT IS CONFIDENTIAL AND NOT TO BE RELEASED WITHOUT AUTHORIZATION
--- NOTE | 2023-12-03 12:17 | EKG ---
[facility] [address] [facility] [place] [address] Signed Sinus tachycardia with frequent premature ventricular complexes Left axis deviation Pulmonary disease pattern Left ventricular hypertrophy with repolarization abnormality ( Braddock product , Romhilt-Mcdermott ) Abnormal ECG When compared with ECG of 22-NOV-2023 09:08, premature ventricular complexes are now present T wave inversion now evident in Anterior leads Confirmed by Sherice Arreola MD ([id number]) on 11/28/2023 4:21:03 PM Electronically Signed By: SHERICE ARREOLA 12/03/23 1217 PATIENT NAME: KAYKAY LAWSON Electrocardiogram DATE OF : 72 PHYSICIAN: SHERICE ARREOLA REPORT #: [id number] REPORT IS CONFIDENTIAL AND NOT TO BE RELEASED WITHOUT AUTHORIZATION
[2023-12-03 13:38] VITALS: BP 110/64
--- NOTE | 2023-12-03 14:45 | NUR ---
Notified by Dr. Foster, pt will not be able to dc today. Pt cont. to have difficulty walking and issues with labs. Discussed possible placement to SNF for this pt as he has had frequent admissions and would benefit from therapy. Pt in the past has not been appropriate for placement and also declined as his cannot go with him. I spoke with Rashaad and asked if he would be willing to go to a SNF. He is in agreement. He asks if his can stay with him. I let him know she can visit, but cannot stay there. He states he is willing to go. He would prefer [facility], but is willing to go to any that have a bed open.
--- NOTE | 2023-12-03 16:00 | NUR ---
Chart send to [facility] here and [facility] in [place]. Lorena from [facility] called and cannot accept this pt. CARMEN from [facility] will have nursing review.
[2023-12-03 17:59] VITALS: BP 113/60
[2023-12-03 20:11] VITALS: BP 113/79
--- NOTE | 2023-12-03 20:21 | NUR ---
Patient awake and watching TV, Significant other at bedside, VSS, denies pain at this time, tele intact and sinus tachycardia noted, Central line secured and intact, dry and clean, LE bilat with dressings intact, dry and clean, lower legs bilat with swelling R>L. legs below knees dry, scaly and ignacio in appearance, CMS intact.
--- NOTE | 2023-12-03 22:05 | NUR ---
Patient resting with eyes closed, appears comfortable, no distress, RR even and unlabored. call light within reach.
--- NOTE | 2023-12-04 00:04 | NUR ---
Rounding on patient, appears a sleep, appears comfortable with no noted distress, RR even and unlabored, significant other sleeping at bedside. call light within reach.
--- NOTE | 2023-12-04 01:02 | NUR ---
Patient awake and requested and given pudding and patricia cracker. He is sitting up at edge of the bed eating, no complaints, no distress noted, lower leg dressings intact, VSS.
[2023-12-04 01:03] VITALS: BP 111/74
--- NOTE | 2023-12-04 02:41 | NUR ---
Patient lying with eyes closed, appears asleep, appears comfortable, no noted distress, dressings to lower legs clean, dry and intact, call light within reach.
--- NOTE | 2023-12-04 04:07 | NUR ---
Patient is awake sitting on edge of bed, requested and given pudding and crackers. no compliants, tele intact, lower leg dressings intact, call light within reach.
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
--- NOTE | 2023-12-04 05:10 | NUR ---
Patient resting in bed. Patients appears a sleep in recliiner.
--- NOTE | 2023-12-04 05:54 | NUR ---
Upon entering room patient is up ad nissa in room, gait steady, over in his belongings. When asked what he was doing he stated he was getting something to eat and had half an eclair eaten. This RN explained to patient how bad that is for his DM and patient understood and gave the remaiining to RN and it was thrown away. Patient now back to bed resting.
[2023-12-04 05:56] VITALS: BP 119/72
--- NOTE | 2023-12-04 07:27 | NUR ---
recieved pt report from nurse at 0714. pt is resting in bed but groaning due to scrotum pain. pt is requesting breakfast. informed him that he had another 45 mins. pt is in room sleeping. no other requests at this time or cares needed. call light within reach
--- NOTE | 2023-12-04 08:14 | NUR ---
patient lying in bed this am. acu check completed. graduated cylinder emptied. pt has no other requests at this time, spouse sleeping in room. call light within reach.
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
[2023-12-04] MEDS ORDERED: DOXYCYCLINE HY100 MG PO ×2 (09:45)
--- NOTE | 2023-12-04 09:45 | NUR ---
Patient on a 60 gm Cons Carb diet and eating 100% of meals. Nursing providing pudding and patricia crackers or other snacks at night. His stays in the room and brings in food from cafeteria and patient seen eating chips in room yesterday. Patient and are homeless with known drug addiction history. If patient does not discharge, continue 60 gm cons carb diet for his diabetes. SF snacks on nursing unit are available.
[2023-12-04] MEDS ORDERED: CILOSTAZOL100 MG PO ×2 (09:46)
[2023-12-04] MEDS ORDERED: METOPROLOL TART50 MG PO ×2 (09:47)
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
[2023-12-04 10:19] VITALS: BP 122/80
--- NOTE | 2023-12-04 10:20 | NUR ---
PATIENT UP WALKING AROUND ROOM W/OUT STAFF, FOLDING CLOTHING ITEMS AND "LOOKING FOR SOCKS". VITALS AND I/O'S COMPLETED. PT HAS NO OTHER REQUESTS AT THIS TIME, CALL LIGHT WITHIN REACH.
--- NOTE | 2023-12-04 11:10 | NUR ---
Notified by staff, pt is now complaining of CP. is completing a work up, if all is clear, pt will dc today. I called [facility] and asked if we could put the transport back for an hour or so. He states this is fine. I updated the charge nurse. Plan for dc is between 12:15-12:45 now.
[2023-12-04 12:15] VITALS: BP 94/54
--- NOTE | 2023-12-05 09:15 | EKG ---
[facility] [address] [facility] [place] [address] Signed Sinus tachycardia T wave abnormality, consider lateral ischemia Prolonged QT Abnormal ECG No previous ECGs available Confirmed by TREVOR VALDES MD ([id number]) on 12/05/2023 9:15:44 AM Electronically Signed By: TREVOR VALDES 12/05/23 0915 PATIENT NAME: KAYKAY LAWSON Electrocardiogram DATE OF : 72 PHYSICIAN: TREVOR VALDES REPORT #: [id number] REPORT IS CONFIDENTIAL AND NOT TO BE RELEASED WITHOUT AUTHORIZATION
== END 2023-12-04 12:20 | disposition home or self-care (01) | DRG 603 ==
LOC: ED 18:02 → MS 23:59
PROVIDERS: Family Medicine; ADMIT Internal Medicine; ATTEND Internal Medicine
DX: L03.115 Cellulitis of right lower limb (principal); I50.22 Chronic systolic (congestive) heart failure; E87.3 Alkalosis; L03.116 Cellulitis of left lower limb; E87.6 Hypokalemia; I48.0 Paroxysmal atrial fibrillation; E83.42 Hypomagnesemia; K21.9 Gastro-esophageal reflux disease without esophagitis; I11.0 Hypertensive heart disease with heart failure; E11.42 Type 2 diabetes mellitus with diabetic polyneuropathy; B19.20 Unspecified viral hepatitis C 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 coma; F17.210 Nicotine dependence, cigarettes, uncomplicated; Z98.890 Other specified postprocedural states; Z90.49 Acquired absence of other specified parts of digestive tract; Z95.810 Presence of automatic (implantable) cardiac defibrillator; Z79.01 Long term (current) use of anticoagulants; Z79.899 Other long term (current) drug therapy; Z79.84 Long term (current) use of oral hypoglycemic drugs
CPT/HCPCS: 36415; 36592; 71045; 80048; 80053; 80307; 81001; 82553; 82803; 83605; 83735; 83880; 84484; 85025; 85610; 87040; 93005; 93010; 93925; 97161; 97165; A9270; J0696; J0878; J1170; J1200; J1815; J1940; J2270; J3475; J3480; J7030

== ENCOUNTER 2023-12-06 00:56 | Emergency (ER) | payer OTHER ==
[~2023-12-06] VITALS: Ht 182.9 cm; Wt 66.7 kg
[~2023-12-06 00:56] MED LIST changes: +CILOSTAZOL100 MG PO; +METOPROLOL TART50 MG PO
--- OUTSIDE RECORDS SUMMARY | 2023-12-06 01:02 | XMS ---
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 09/22/2023 09:23 - Patient eloped with IV in place. - Patient eloped before treatment completed. - Patient with suicidal and/or homicidal ideations eloped. Details: Patient left AMA CRITERIA MET - 6 ED Visits in 6 Months - [facility] - 2 Visits in 30 Days CARE PROVIDERS -Zi- Dentist: [employer] [facility] PHONE: [phone] [facility]/Center: [facility] Current \F\ [facility] PHONE: [phone] Fly has no Care Guidelines for this patient. E.D. VISIT COUNT (12 MO.) 15 [facility] 3 [facility] 2 [facility] [place] ([place]) [address] [facility] [address] [facility] TOTAL 22 NOTE: Visits indicate total known visits. 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 - 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 drugs - Nicotine dependence, unspecified, uncomplicated - Other skilled nursing (current) drug therapy - Other stimulant dependence, uncomplicated - Shortness of breath - Type 2 diabetes mellitus with diabetic neuropathy, unspecified - Unspecified atrial fibrillation 11/18/2023 08:26 [facility] [place] TYPE: Emergency COMPLAINT: - SOB 11/11/2023 23:14 [facility] [place] TYPE: Emergency COMPLAINT: - CHEST PAIN DIAGNOSES: - Heart failure, unspecified - Hypertensive heart disease with heart failure - nursing home (current) use of anticoagulants - nursing home (current) use of oral hypoglycemic drugs - Nicotine dependence, unspecified, uncomplicated - Other chest pain - Other technician terminal and repeater (current) drug therapy - Other stimulant abuse, [...] Hypertensive heart disease with heart failure - nursing home (current) use of oral hypoglycemic drugs - Nicotine dependence, unspecified, uncomplicated - Other technician terminal and repeater (current) drug therapy - Shortness of breath - Type 2 diabetes mellitus with diabetic neuropathy, unspecified 09/22/2023 09:23 [facility] [place] TYPE: Emergency COMPLAINT: - SOB, COUGHING BLOOD, WEAKNESS, NO APPETITE DIAGNOSES: - Contact with and (suspected) exposure to COVID-19 - Heart failure, unspecified - Hypertensive heart disease with heart failure - 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 - Nicotine dependence, unspecified, uncomplicated - Non-ST elevation (NSTEMI) myocardial infarction - Other technician terminal and repeater (current) drug therapy - Presence of automatic (implantable) cardiac defibrillator - Procedure and treatment not carried out because of patient's decision for other reasons - Shortness of breath - Type 2 diabetes mellitus with diabetic neuropathy, unspecified 09/18/2023 15:04 [facility] [place] TYPE: Emergency DIAGNOSES: - Acute on chronic [...] Hypertensive heart disease with heart failure - 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 TYPE: Emergency COMPLAINT: - MEDICAL CLEARANCE DIAGNOSES: - Encounter for general adult medical examination without abnormal findings - MEDICAL CLEARANCE 04/14/2023 00:07 [facility] [place] TYPE: Emergency COMPLAINT: - CHEST PAIN DIAGNOSES: - Chest pain, unspecified - Heart failure, unspecified - Hypertensive heart disease with heart failure - nursing home (current) use of anticoagulants - Nicotine dependence, unspecified, uncomplicated - Other skilled nursing (current) drug therapy - Other stimulant abuse, uncomplicated - Type 2 diabetes mellitus with diabetic chronic kidney disease 03/28/2023 05:37 [facility] [place] TYPE: Emergency COMPLAINT: - CHEST PAIN, SHORTNESS OF BREATH DIAGNOSES: - CHEST PAIN, SHORTNESS OF BREATH 03/22/2023 08:17 [facility] [place] TYPE: Emergency COMPLAINT: - SOB,COUGH DIAGNOSES: - Contact with and (suspected) exposure to COVID-19 - Cough, unspecified - Heart failure, unspecified - Hypertensive heart disease with heart failure - nursing home (current) use of anticoagulants - Nicotine dependence, unspecified, uncomplicated - Other skilled nursing (current) drug therapy - Type 2 diabetes mellitus without complications 03/18/2023 04:53 [facility] [place] TYPE: Emergency COMPLAINT: - RT HIP PAIN DIAGNOSES: - Alcohol abuse, uncomplicated - Heart failure, unspecified - Homelessness unspecified - Hypertensive heart disease with heart failure - nursing home (current) use of anticoagulants - 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 drugs - Nicotine dependence, unspecified, uncomplicated - Other chronic pain - Other technician terminal and repeater (current) drug therapy - Other stimulant abuse, [...] failure - Inflammatory liver disease, unspecified - nursing home (current) use of anticoagulants - nursing home (current) use of oral hypoglycemic drugs - Nicotine dependence, unspecified, uncomplicated - Other skilled nursing (current) drug therapy - Other psychoactive substance abuse, uncomplicated - Type 2 diabetes mellitus without complications - Unspecified abdominal pain 01/13/2023 14:59 [facility] TYPE: Emergency DIAGNOSES: - Acute on chronic systolic (congestive) heart failure - Intracardiac thrombosis, not elsewhere classified - Other pulmonary embolism without acute cor pulmonale - Shortness of breath - Medical Problem (Minor) - Shortness of Breath Plus 2 More Visits INPATIENT VISIT TRACKING (12 MO.) 11/26/2023 23:59 [facility] [place] TYPE: Medical Surgical COMPLAINT: - CELLULITIS,HYPOKALEMIA,HYPOMAGNESEMIA,UNCONTROLLED 11/18/2023 11:29 [facility] [place] TYPE: Medical Surgical COMPLAINT: - CHF EXACERBATION DIAGNOSES: - Acquired absence of other specified parts of digestive tract - Acquired absence of other specified parts of digestive tract - Encounter for screening for COVID-19 - Encounter for screening for COVID-19 - Gastro-esophageal reflux disease without esophagitis - Gastro-esophageal reflux disease without esophagitis - Heart failure, unspecified - Homelessness unspecified - Homelessness unspecified - Hypertensive heart disease with heart failure - Hypertensive heart disease with heart failure - Hypokalemia - Hypokalemia - Hypomagnesemia - Hypomagnesemia - nursing home (current) use of antibiotics - marine oil terminal 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 antibiotics - 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 - 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 - nursing home (current) use of inhaled steroids - nursing home (current) use of inhaled steroids - nursing home (current) use of oral hypoglycemic drugs - 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 drugs - Nicotine dependence, cigarettes, uncomplicated - Nicotine dependence, cigarettes, uncomplicated - Other technician terminal and repeater (current) drug therapy - Other skilled nursing (current) drug therapy - Other specified postprocedural states - Other specified postprocedural states - Other stimulant abuse, uncomplicated - Other stimulant abuse, uncomplicated - Type 2 diabetes mellitus with diabetic neuropathy, unspecified - Type 2 diabetes mellitus with diabetic neuropathy, unspecified - Type 2 diabetes mellitus without complications - Unspecified abdominal hernia without obstruction or gangrene - Unspecified abdominal hernia without obstruction or gangrene - Unspecified viral hepatitis C 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 coma - Unspecified viral hepatitis C 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 coma - PATIENT'S OTHER NONCOMPL WITH MEDS REGIMEN FOR OTH - PATIENT'S OTHER NONCOMPL WITH MEDS REGIMEN [...] initial encounter - Hypothermia, initial encounter - 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 - 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 - nursing home (current) use of oral hypoglycemic drugs - 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 drugs - Nicotine dependence, cigarettes, uncomplicated - Nicotine dependence, cigarettes, uncomplicated - Old myocardial infarction - Old myocardial infarction - Other disorders of bilirubin metabolism - Other disorders of bilirubin metabolism - Other skilled nursing (current) drug therapy - Other skilled nursing (current) drug therapy - Other specified postprocedural [...] gangrene, not specified as recurrent [facility]23 [facility] [facility] DIAGNOSES: - Acute on chronic systolic (congestive) heart failure - Cardiomyopathy, unspecified - Chronic pulmonary embolism - Essential (primary) hypertension - Other specified disorders of the male genital organs - Other stimulant abuse, uncomplicated - Type 2 diabetes mellitus with hyperglycemia 07/24/2023 23:40 [facility] TYPE: Cardiology DIAGNOSES: 360[address]. Cardiac arrest, cause unspecified [address]. Post Code [address]. Cardiomyopathy due to drug and external agent 07/24/2023 12:37 [facility] [place] TYPE: Medical Surgical DIAGNOSES: - Acute systolic (congestive) heart failure - Heart failure, unspecified 03/28/2023 05:37 [facility] [place] TYPE: Medical Surgical DIAGNOSES: - Heart failure, unspecified 03/10/2023 19:52 [facility] [place] TYPE: Family Practice DIAGNOSES: 26822. Acute and subacute hepatic failure without coma 24430. acute hepatitis with encephalopathy, request for liver transplant eval . Acute and subacute hepatic failure without coma . Housing instability, housed unspecified . marine oil terminal 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 insulin . Type 2 diabetes mellitus without complications 01/04/2023 11:36 [facility] TYPE: Internal Medicine DIAGNOSES: - Acute on chronic systolic (congestive) heart failure - Cardiac arrest, cause unspecified - Encounter for palliative care - Intracardiac thrombosis, not elsewhere classified - Other malaise - Other specified counseling - Other stimulant abuse, uncomplicated - PEA cardiac arrest 12/19/2022 13:29 [facility] [place] TYPE: Intensive Care DIAGNOSES: - Acute on chronic systolic (congestive) heart failure - Bacteremia - Heart failure, unspecified - Hemoptysis - Non-ST elevation (NSTEMI) myocardial infarction - Other pulmonary embolism without acute cor pulmonale - Other stimulant abuse, uncomplicated - Pneumonia, unspecified organism - Type 2 diabetes mellitus with hyperglycemia - Unspecified systolic (congestive) heart failure [email or web address]
[2023-12-06 01:19] LABS: BASOPHILS 0.8 % (0-2); EOSINOPHILS 0.1 % (0-6); HEMOGLOBIN 9.7 g/dL (12.0-18.0)
[2023-12-06 01:25] LABS: HEMATOCRIT 32.4 % (35.0-50.0); LYMPHOCYTES 6.6 % (24-44); MCH 25.5 (27-36); MCHC 29.8 g/dl (30-36); MCV 85.6 fl (81-99); MONOCYTES 4.2 % (0-12); NEUTROPHILS 88.3 % (39-80); PLATELET COUNT 355 K/uL (140-440); RBC 3.79 M/ul (4.3-5.7); RDW 23.3 (10.5-15.0)
[2023-12-06 01:31] LABS: INR 1.57 (0.80-1.30)
[2023-12-06 01:51] LABS: ALBUMIN 2.3 g/dL (3.4-5.0); ALBUMIN/GLOBULIN RATIO 0.43 (1.1-2.4); ANION GAP 18.5 (7-21); BILIRUBIN, TOTAL 2.3 ng/dL (0.2-1.0); BUN/CREATININE RATIO 18.11 (6.0-28.6); CALCIUM 8.4 mg/dL (8.5-10.1); CREATININE, SERUM 1.38 mg/dL (0.70-1.30); MAGNESIUM 1.9 mg/dL (1.8-2.4); POTASSIUM 4.5 mmol/L (3.5-5.1); PROTEIN, TOTAL 7.6 g/dL (6.4-8.2)
[2023-12-06 08:03] LABS: BILIRUBIN, URINE POSITIVE (negative); BLOOD/HGB, URINE TRACE-I (Negative); KETONE, URINE NEGATIVE (Negative); LEUK ESTERASE, URINE NEGATIVE (negative); NITRITE, URINE NEGATIVE (negative)
[2023-12-06 08:23] LABS: EPITHELIAL CELLS, URINE SQUAMOUS 1+ /lpf (0-1+)
[2023-12-06 08:24] LABS: CASTS, URINE HYALINE 1+ \\lpf
[2023-12-06 08:25] LABS: REFLEX CULTURE, URINE No (No)
[2023-12-06 08:31] LABS: BUN/CREATININE RATIO 24.24 (6.0-28.6); CALCIUM 8.3 mg/dL (8.5-10.1); CREATININE, SERUM 1.32 mg/dL (0.70-1.30)
[2023-12-06 08:47] LABS: LACTIC ACID, BLOOD 3.4 mmol/L (0.4-2.0)
[2023-12-06 09:22] LABS: AMPHETAMINES, URINE POSITIVE (NEGATIVE); BARBITURATES, URINE NEGATIVE (NEGATIVE); BENZODIAZEPINE, URINE NEGATIVE (NEGATIVE); BUPRENORPHINE, URINE NEGATIVE (NEGATIVE); CANNABINOID, URINE NEGATIVE (NEGATIVE); COCAINE, URINE NEGATIVE (NEGATIVE); ECSTASY, URINE NEGATIVE (NEGATIVE); FENTANYL, URINE NEGATIVE (NEGATIVE); METHADONE, URINE NEGATIVE (NEGATIVE); OPIATES, URINE NEGATIVE (NEGATIVE); OXYCODONE, URINE NEGATIVE (NEGATIVE); PHENCYCLIDINE, URINE NEGATIVE (NEGATIVE)
[2023-12-06 14:27] LABS: ANION GAP 16.2 (7-21); BUN/CREATININE RATIO 24.66 (6.0-28.6); CALCIUM 8.4 mg/dL (8.5-10.1); CREATININE, SERUM 1.5 mg/dL (0.70-1.30); POTASSIUM 5.2 mmol/L (3.5-5.1)
[2023-12-06 14:31] LABS: LACTIC ACID, BLOOD 3.7 mmol/L (0.4-2.0)
--- NOTE | 2023-12-06 15:02 | EKG ---
[facility] [address] [facility] [place] [address] Signed Normal sinus rhythm Left axis deviation T wave abnormality, consider inferolateral ischemia Prolonged QT Abnormal ECG When compared with ECG of 06-DEC-2023 01:00, (Unconfirmed) Criteria for Inferior infarct are no longer present T wave inversion now evident in Inferior leads Confirmed by TREVOR VALDES MD ([id number]) on 12/06/2023 3:02:14 PM Electronically Signed By: TREVOR VALDES 12/06/23 1502 PATIENT NAME: KAYKAY LAWSON OMAR Electrocardiogram DATE OF : 72 PHYSICIAN: TREVOR VALDES REPORT #: [id number] REPORT IS CONFIDENTIAL AND NOT TO BE RELEASED WITHOUT AUTHORIZATION
[2023-12-06 16:13] VITALS: BP 94/64
== END 2023-12-06 16:04 | disposition short-term general hospital (02) ==
LOC: ED 00:56
PROVIDERS: Emergency Medicine; Family Medicine
DX: I95.9 Hypotension, unspecified (principal); N17.9 Acute kidney failure, unspecified; I11.0 Hypertensive heart disease with heart failure; I50.9 Heart failure, unspecified; E11.9 Type 2 diabetes mellitus without complications; F17.200 Nicotine dependence, unspecified, uncomplicated; Z79.899 Other long term (current) drug therapy; Z79.01 Long term (current) use of anticoagulants
CPT/HCPCS: 36415; 36556; 51702; 71045; 74018; 80048; 80053; 80307; 81001; 83605; 83735; 83880; 84484; 85025; 85060; 85610; 99285-25; J1940; J2310; J7030

== ENCOUNTER 2024-03-26 18:26 | Emergency (ER) | payer OTHER ==
[~2024-03-26] VITALS: Ht 182.9 cm; Wt 85.9 kg
[~2024-03-26 18:26] MED LIST changes: +ACETAMINOPHEN325 M1 PO; +ENTRESTO 24 MG1 EACH PO; +LO-DOSE ASPIRIN81 MG PO; +LOSARTAN POTASS50 MG PO; +SPIRONOLACTONE25 MG PO; +TAMSULOSIN HCL0.4 MG PO
[2024-03-26] MEDS ORDERED: NITROGLYCERIN 0.4 MG SUBL SL PRN (18:45)
[2024-03-26] MEDS ORDERED: ASPIRIN 81 MG CHEW PO ONE (18:45)
[2024-03-26] MEDS ORDERED: DEXTROSE 5% 100 ML IV ONE (19:27)
[2024-03-26] MEDS ORDERED: PIPERACILLIN/TAZOBACTAM 3.375 GM in DEXTROSE 5% 100 ML IV ONE (19:30)
[2024-03-26 19:31] LABS: HEMATOCRIT 30.9 % (35.0-50.0); HEMOGLOBIN 9.3 g/dL (12.0-18.0); MCH 21.6 (27-36); MCV 72.2 fl (81-99); PLATELET COUNT 360 K/uL (140-440); RBC 4.28 M/ul (4.3-5.7); RDW 22.5 (10.5-15.0)
[2024-03-26 19:48] LABS: LYMPHOCYTES, MANUAL DIFF 10; MONOCYTES, MANUAL DIFF 11; NEUTROPHILS, MANUAL DIFF 79
[2024-03-26 19:54] LABS: ALBUMIN 2.7 g/dL (3.4-5.0); ALBUMIN/GLOBULIN RATIO 0.57 (1.1-2.4); ANION GAP 16.2 (7-21); BILIRUBIN, TOTAL 2.6 ng/dL (0.2-1.0); BUN/CREATININE RATIO 19.87 (6.0-28.6); CALCIUM 8.4 mg/dL (8.5-10.1); CREATININE, SERUM 1.56 mg/dL (0.70-1.30); MAGNESIUM 1.7 mg/dL (1.8-2.4); POTASSIUM 4.2 mmol/L (3.5-5.1); PROTEIN, TOTAL 7.4 g/dL (6.4-8.2)
[2024-03-26 19:57] LABS: LACTIC ACID, BLOOD 3.9 mmol/L (0.4-2.0)
[2024-03-26 19:59] LABS: CREATINE KINASE 180 U/L (39-308)
[2024-03-26] MEDS ORDERED: SODIUM CHLORIDE 0.9% 1,000 ML IV PRN (20:15)
[2024-03-26] MEDS ORDERED: FUROSEMIDE 40 MG/4 ML VIAL IV ONE (20:30)
[2024-03-26] MEDS ORDERED: DAPTOmycin 500 MG/10 ML VIAL IV SCH ×2 (20:55→22:01)
[2024-03-26 21:23] LABS: BILIRUBIN, URINE NEGATIVE (negative); BLOOD/HGB, URINE TRACE-I (Negative); KETONE, URINE NEGATIVE (Negative); LEUK ESTERASE, URINE NEGATIVE (negative); NITRITE, URINE NEGATIVE (negative); PH, URINE 5.5 (5-7)
[2024-03-26 21:31] LABS: CRYSTALS, URINE NONE SEEN (0-1+); EPITHELIAL CELLS, URINE NS /lpf (0-1+)
[2024-03-26 21:32] LABS: BACTERIA, URINE 1+ /hpf (negative); CASTS, URINE HYALINE 2+ \\lpf; COLLECTION TYPE, URINE CLEAN CATCH; REFLEX CULTURE, URINE No (No)
[2024-03-26] MEDS ORDERED: DAPTOmycin 500 MG/10 ML VIAL IV ONE (22:15)
[2024-03-26 22:49] VITALS: BP 100/65
[2024-03-27] MEDS ORDERED: DAPTOmycin 500 MG/10 ML VIAL IV SCH (21:00)
== END 2024-03-26 22:45 | disposition short-term general hospital (02) ==
LOC: ED 18:26
PROVIDERS: Emergency Medicine; Internal Medicine
DX: A41.9 Sepsis, unspecified organism (principal); R65.20 Severe sepsis without septic shock; L03.116 Cellulitis of left lower limb; L03.115 Cellulitis of right lower limb; I11.0 Hypertensive heart disease with heart failure; I50.9 Heart failure, unspecified; I21.4 Non-ST elevation (NSTEMI) myocardial infarction; F19.10 Other psychoactive substance abuse, uncomplicated; F17.200 Nicotine dependence, unspecified, uncomplicated; K21.9 Gastro-esophageal reflux disease without esophagitis; E11.40 Type 2 diabetes mellitus with diabetic neuropathy, unspecified; Z79.899 Other long term (current) drug therapy
CPT/HCPCS: 36415; 71045; 80053; 81001; 82553; 83605; 83735; 83880; 84484; 85025; 93005; 93010; 96365; 96375; 99285-25; A9270; J0878; J1940; J2543; J7030

== ENCOUNTER 2024-04-12 20:26 | Emergency (ER) | payer OTHER ==
[~2024-04-12] VITALS: Ht 182.9 cm; Wt 82.7 kg
[2024-04-12] MEDS ORDERED: ACETAMINOPHEN 500 MG TAB PO ONE (21:00)
[2024-04-12] MEDS ORDERED: POTASSIUM CHLORIDE 10 MEQ TABCR PO ONE (21:00)
[2024-04-12] MEDS ORDERED: SPIRONOLACTONE 25 MG TAB PO ONE (21:00)
[2024-04-12] MEDS ORDERED: TORSEMIDE 20 MG TAB PO ONE (21:00)
[2024-04-12 21:16] LABS: PLATELET COUNT 225 K/uL (140-440)
[2024-04-12 21:19] LABS: HEMATOCRIT 30.2 % (35.0-50.0); HEMOGLOBIN 9.1 g/dL (12.0-18.0); MCH 23.9 (27-36); MCV 79.5 fl (81-99); RDW 23.3 (10.5-15.0)
[2024-04-12 21:32] LABS: BANDS, MANUAL DIFF 6; LYMPHOCYTES, MANUAL DIFF 9; MONOCYTES, MANUAL DIFF 4; NEUTROPHILS, MANUAL DIFF 81
[2024-04-12 21:33] LABS: ALBUMIN 2.6 g/dL (3.4-5.0); ALBUMIN/GLOBULIN RATIO 0.59 (1.1-2.4); ANION GAP 17.5 (7-21); BILIRUBIN, TOTAL 3.2 ng/dL (0.2-1.0); BUN/CREATININE RATIO 15.33 (6.0-28.6); CALCIUM 8.1 mg/dL (8.5-10.1); CREATININE, SERUM 1.63 mg/dL (0.70-1.30); POTASSIUM 3.5 mmol/L (3.5-5.1)
[2024-04-12 21:48] LABS: BILIRUBIN, URINE POSITIVE (negative); BLOOD/HGB, URINE NEGATIVE (Negative); KETONE, URINE NEGATIVE (Negative); LEUK ESTERASE, URINE NEGATIVE (negative); NITRITE, URINE NEGATIVE (negative); PH, URINE 5.5 (5-7)
[2024-04-12 22:15] VITALS: BP 106/65
[2024-04-12 22:19] LABS: AMPHETAMINES, URINE POSITIVE (NEGATIVE); BARBITURATES, URINE NEGATIVE (NEGATIVE); BENZODIAZEPINE, URINE NEGATIVE (NEGATIVE); BUPRENORPHINE, URINE NEGATIVE (NEGATIVE); CANNABINOID, URINE NEGATIVE (NEGATIVE); COCAINE, URINE NEGATIVE (NEGATIVE); ECSTASY, URINE POSITIVE (NEGATIVE); FENTANYL, URINE NEGATIVE (NEGATIVE); METHADONE, URINE NEGATIVE (NEGATIVE); OPIATES, URINE NEGATIVE (NEGATIVE); OXYCODONE, URINE NEGATIVE (NEGATIVE); PHENCYCLIDINE, URINE NEGATIVE (NEGATIVE)
[2024-04-12] MEDS ORDERED: ONDANSETRON 4 MG HOME.PACK SL ONE (22:30)
--- NOTE | 2024-04-12 22:51 | EKG ---
[facility] [address] [facility] [place] [address] Signed Sinus tachycardia Low voltage QRS Cannot rule out Inferior infarct (cited on or before 17-JAN-2024) Abnormal ECG When compared with ECG of 12-APR-2024 09:20, QRS axis shifted right Confirmed by Dada Ayala MD () on 04/12/2024 10:51:11 PM Electronically Signed By: DADA AYALA MD 04/12/24 2251 PATIENT NAME: KAYKAY LAWSON Electrocardiogram DATE OF : 72 PHYSICIAN: DADA AYALA MD REPORT #: [id number] REPORT IS CONFIDENTIAL AND NOT TO BE RELEASED WITHOUT AUTHORIZATION
[2024-05-07] MEDS ORDERED: HYDROCODON-ACE1 EA11 PO (14:52)
[2024-05-07] MEDS ORDERED: K-TAB ER20 MEQ PO (14:57)
== END 2024-04-12 22:24 | disposition home or self-care (01) ==
LOC: ED 20:26
PROVIDERS: Internal Medicine
DX: I11.0 Hypertensive heart disease with heart failure (principal); I50.9 Heart failure, unspecified; E11.40 Type 2 diabetes mellitus with diabetic neuropathy, unspecified; F17.200 Nicotine dependence, unspecified, uncomplicated; Z79.899 Other long term (current) drug therapy
CPT/HCPCS: 36415; 80053; 80307; 81003; 84484; 85025; 93005; 93010; 99285-25; A9270

== ENCOUNTER 2024-05-05 15:32 | Emergency (ER) | payer OTHER ==
[~2024-05-05] VITALS: Ht 182.9 cm; Wt 80.8 kg
[2024-05-05] MEDS ORDERED: IBUPROFEN 600 MG TAB PO ONE (16:45)
[2024-05-05] MEDS ORDERED: ACETAMINOPHEN 500 MG TAB PO ONE (16:45)
[2024-05-05 18:01] VITALS: BP 118/79
== END 2024-05-05 18:01 | disposition home or self-care (01) ==
LOC: ED 15:32
DX: S80.02XA Contusion of left knee, initial encounter (principal); R60.0 Localized edema; F17.200 Nicotine dependence, unspecified, uncomplicated; K21.9 Gastro-esophageal reflux disease without esophagitis; I11.9 Hypertensive heart disease without heart failure; I50.9 Heart failure, unspecified; E11.40 Type 2 diabetes mellitus with diabetic neuropathy, unspecified; W19.XXXA Unspecified fall, initial encounter; Z79.899 Other long term (current) drug therapy
CPT/HCPCS: A9270

== ENCOUNTER 2024-05-08 07:07 | Observation (INO) | payer OTHER ==
[~2024-05-08] VITALS: Ht 182.9 cm; Wt 82.3 kg
[~2024-05-08 07:07] MED LIST changes: +HYDROCODON-ACE1 EA11 PO
[2024-05-08] MEDS ORDERED: HYDROCODONE/ACETA 7.5/325 TAB PO ONE (08:00)
[2024-05-08 08:02] LABS: BASOPHILS 1.1 % (0-2); EOSINOPHILS 0.4 % (0-6); HEMATOCRIT 30.3 % (35.0-50.0); HEMOGLOBIN 9.2 g/dL (12.0-18.0); LYMPHOCYTES 15.5 % (24-44); MCH 22.7 (27-36); MCHC 30.3 g/dl (30-36); MCV 74.7 fl (81-99); MONOCYTES 15.6 % (0-12); NEUTROPHILS 67.4 % (39-80); PLATELET COUNT 282 K/uL (140-440); RBC 4.06 M/ul (4.3-5.7); RDW 21.9 (10.5-15.0)
[2024-05-08 08:25] LABS: MAGNESIUM 1.8 mg/dL (1.8-2.4)
[2024-05-08 08:27] LABS: ACETAMINOPHEN 0 ug/mL (10-30); ALCOHOL, MEDICAL <3 ng/dL (<3); TSH, 3RD GENERATION 3.593 uIU/mL (0.358-3.740)
[2024-05-08 08:34] LABS: SALICYLATE < 2.8 mg/dL (2.8-20.0)
[2024-05-08 09:27] LABS: ALBUMIN 2.7 g/dL (3.4-5.0); ALBUMIN/GLOBULIN RATIO 0.55 (1.1-2.4); BILIRUBIN, TOTAL 1.6 ng/dL (0.2-1.0); BUN/CREATININE RATIO 13.91 (6.0-28.6); CREATININE, SERUM 1.15 mg/dL (0.70-1.30); PROTEIN, TOTAL 7.6 g/dL (6.4-8.2)
[2024-05-08] MEDS ORDERED: POTASSIUM CHLORIDE 10 MEQ TABCR PO ONE ×2 (12:30→14:30)
[2024-05-08 13:16] LABS: AMPHETAMINES, URINE POSITIVE (NEGATIVE); BARBITURATES, URINE NEGATIVE (NEGATIVE); BENZODIAZEPINE, URINE NEGATIVE (NEGATIVE); BUPRENORPHINE, URINE NEGATIVE (NEGATIVE); CANNABINOID, URINE NEGATIVE (NEGATIVE); COCAINE, URINE NEGATIVE (NEGATIVE); ECSTASY, URINE POSITIVE (NEGATIVE); FENTANYL, URINE NEGATIVE (NEGATIVE); METHADONE, URINE NEGATIVE (NEGATIVE); OPIATES, URINE POSITIVE (NEGATIVE); OXYCODONE, URINE NEGATIVE (NEGATIVE); PHENCYCLIDINE, URINE NEGATIVE (NEGATIVE)
[2024-05-08] MEDS ORDERED: FUROSEMIDE 40 MG TAB PO ONE (14:30)
[2024-05-08] MEDS ORDERED: HYDROCODONE/ACETA 7.5/325 TAB PO PRN (14:30)
[2024-05-08] MEDS ORDERED: GUAIFENESIN 10 ML UNIT DOSE CUP PO PRN (19:00)
[2024-05-08] MEDS ORDERED: MICONAZOLE NITRATE 1 EA BTL TOP SCH (22:15)
[2024-05-08] MEDS ORDERED: ZOLPIDEM TARTRATE 5 MG TAB PO ONE (23:45)
[2024-05-09] MEDS ORDERED: SPIRONOLACTONE 25 MG TAB PO SCH (09:00)
[2024-05-09] MEDS ORDERED: TORSEMIDE 20 MG TAB PO SCH (09:00)
[2024-05-09] MEDS ORDERED: POTASSIUM CHLORIDE 10 MEQ TABCR PO SCH (09:00)
[2024-05-09] MEDS ORDERED: ZOLPIDEM TARTRATE 5 MG TAB PO ONE (20:30)
[2024-05-09] MEDS ORDERED: LIDOCAINE & ANTACID 35 ML BTL PO ONE (22:30)
[2024-05-10] MEDS ORDERED: HYDROCODONE/ACETA 5/325 TAB PO PRN (08:15)
--- NOTE | 2024-05-10 14:44 | EKG ---
[facility] [address] [facility] [place], [place] [address] Signed Sinus tachycardia with premature supraventricular complexes Low voltage QRS Cannot rule out Anterior infarct , age undetermined Abnormal ECG No previous ECGs available Confirmed by King Mckeon ([id number]) on 05/10/2024 2:44:03 PM Electronically Signed By: KING MCKEON MD 05/10/24 1444 PATIENT NAME: KAYKAY LAWSON Electrocardiogram DATE OF : 72 PHYSICIAN: KING MCKEON MD REPORT #: [id number] REPORT IS CONFIDENTIAL AND NOT TO BE RELEASED WITHOUT AUTHORIZATION
[2024-05-10] MEDS ORDERED: INHALER, ASSIST DEVICES 1 EACH SPACER MISC ONE (18:45)
[2024-05-10] MEDS ORDERED: ALBUTEROL SULFATE 8 GM HOME.PACK INH PRN (18:45)
[2024-05-10] MEDS ORDERED: ZOLPIDEM TARTRATE 5 MG TAB PO ONE (23:15)
[2024-05-11] MEDS ORDERED: LIDOCAINE & ANTACID 35 ML BTL PO ONE (00:15)
[2024-05-11] MEDS ORDERED: ondansetron HCL 4 MG/2 ML VIAL IV ONE (02:45)
[2024-05-11] MEDS ORDERED: LORazepam 1 MG TAB PO ONE (02:45)
[2024-05-11] MEDS ORDERED: ONDANSETRON 4 MG TAB ODT SL ONE (02:45)
[2024-05-11] MEDS ORDERED: LORazepam 2 MG/ML VIAL IV ONE (02:45)
[2024-05-11] MEDS ORDERED: diphenhydrAMINE HCL 50 MG/ML VIAL IM ONE (03:00)
[2024-05-11] MEDS ORDERED: LORazepam 2 MG/ML VIAL IM ONE (03:00)
[2024-05-11] MEDS ORDERED: HALOPERIDOL LACTATE 5 MG/ML VIAL IM ONE (03:00)
[2024-05-11] MEDS ORDERED: ondansetron HCL 4 MG/2 ML VIAL IM ONE (03:00)
[2024-05-11 08:33] LABS: ANION GAP 22.3 (7-21); BUN/CREATININE RATIO 22.42 (6.0-28.6); CALCIUM 8.7 mg/dL (8.5-10.1); CREATININE, SERUM 1.65 mg/dL (0.70-1.30); MAGNESIUM 1.7 mg/dL (1.8-2.4); POTASSIUM 5.3 mmol/L (3.5-5.1)
[2024-05-11] MEDS ORDERED: MAGNESIUM OXIDE 400 MG TABLET PO SCH (09:38)
[2024-05-11] MEDS ORDERED: TORSEMIDE 20 MG TAB PO SCH (09:49)
--- NOTE | 2024-05-11 11:49 | EKG ---
[facility] [address] [facility] [place] [address] Signed Sinus tachycardia with occasional premature ventricular complexes Left axis deviation Low voltage QRS Inferior infarct , age undetermined Possible Anterolateral infarct (cited on or before 29-FEB-2024) Abnormal ECG When compared with ECG of 08-MAY-2024 22:06, Significant changes have occurred Confirmed by King Mckeon ([id number]) on 05/11/2024 11:49:26 AM Electronically Signed By: KING MCKEON MD 05/11/24 1149 PATIENT NAME: KAYKAY LAWSON Electrocardiogram DATE OF : 72 PHYSICIAN: KING MCKEON MD REPORT #: [id number] REPORT IS CONFIDENTIAL AND NOT TO BE RELEASED WITHOUT AUTHORIZATION
[2024-05-11] MEDS ORDERED: MORPHINE SULFATE 20 MG/ML SYR SL PRN (13:45)
[2024-05-11] MEDS ORDERED: LORazepam 2 MG/ML VIAL IV PRN ×3 (17:45)
[2024-05-11] MEDS ORDERED: ARTIFICIAL TEARS 15 ML BTL OU PRN (17:45)
[2024-05-11] MEDS ORDERED: HALOPERIDOL LACTATE 5 MG/ML VIAL IV PRN ×2 (17:45)
[2024-05-11] MEDS ORDERED: LORazepam 0.5 MG TAB PO PRN (17:45)
[2024-05-11] MEDS ORDERED: ondansetron HCL 4 MG/2 ML VIAL IV PRN (17:45)
[2024-05-11] MEDS ORDERED: PROCHLORPERAZINE MALEATE 10 MG TAB PO PRN (17:45)
[2024-05-11] MEDS ORDERED: fentaNYL citrate 100 MCG/2 ML VIAL IV PRN ×3 (17:45)
[2024-05-11] MEDS ORDERED: MORPHINE SULFATE 10 MG/ML VIAL IV PRN (17:45)
[2024-05-11] MEDS ORDERED: ATROPINE SULFATE 1% OPTH DROPS SL PRN (17:45)
[2024-05-11] MEDS ORDERED: MORPHINE SULFATE 4 MG/ML VIAL IV PRN ×2 (17:45)
[2024-05-11] MEDS ORDERED: SCOPOLAMINE 1 MG/3 DAYS PATCH 1 EACH TDSY TD SCH (18:00)
[2024-05-11 18:33] VITALS: BP 102/73
[2024-05-11] MEDS ORDERED: ONDANSETRON 4 MG TAB ODT SL SCH (20:00)
[2024-05-12 05:30] VITALS: BP 90/74
[2024-05-12] MEDS ORDERED: ONDANSETRON 4 MG TAB ODT SL PRN (07:45)
[2024-05-12] MEDS ORDERED: ENTRESTO 24 MG1 EACH PO (09:52)
[2024-05-12 09:58] VITALS: BP 97/64
[2024-05-12] MEDS ORDERED: CILOSTAZOL100 MG PO (13:54)
[2024-05-12] MEDS ORDERED: METFORMIN HCL500 MG PO (13:55)
[2024-05-12] MEDS ORDERED: MAGNESIUM SULFATE 2 GM/50 ML BAG IV ONE (17:15)
== END 2024-05-13 02:48 ==
LOC: ED 07:07 → MS 07:09
PROVIDERS: Emergency Medicine; ADMIT Family Medicine; ATTEND Family Medicine
DX: R45.851 Suicidal ideations (principal); R18.8 Other ascites; N50.89 Other specified disorders of the male genital organs; I11.0 Hypertensive heart disease with heart failure; I50.9 Heart failure, unspecified; E11.9 Type 2 diabetes mellitus without complications; F17.200 Nicotine dependence, unspecified, uncomplicated; Z79.899 Other long term (current) drug therapy; Z59.00 Homelessness unspecified
CPT/HCPCS: 31720; 36415; 71045; 74176; 80048; 80053; 80307; 83735; 83880; 84443; 85025; 93005; 93010; 96372; 96376; 99285-25; A9270; A9270-GY; G0378; G0480; J1630; J2060; J2270